=== PATIENT | male | born 1965 | race Caucasian/White ===

== ENCOUNTER 2024-10-24 15:17 | Inpatient (IN) | payer MEDICAID, OTHER, SELFPAY ==
--- NOTE | ~2024-10-24 | CT_ITS ---
EXAMINATION: CT ABDOMEN AND PELVIS WITH CONTRAST CLINICAL INFORMATION: Small bowel obstruction. COMPARISON: None available. TECHNIQUE: Multidetector volumetric images were obtained from the superior aspect of the liver through the pubic symphysis following administration 85 mL of Omnipaque 350 intravenous contrast. Sagittal and coronal reformatted images were obtained on the technologist's workstation. Oral contrast: No This CT examination was performed using dose optimization techniques as appropriate, variously including the following: *Automated exposure control *Adjustment of mA and/or kV according to patient size (this includes techniques or standardized protocols for targeted exams where dose is matched to indication/reason for exam; i.e. extremities or head) *Use of iterative reconstruction technique FINDINGS: LUNG BASES: The lung bases are clear. The heart size is normal. LIVER, GALLBLADDER, AND BILIARY TREE: The liver is normal in size, shape, and attenuation. No focal hepatic lesion or biliary ductal dilatation is present. The gallbladder is unremarkable with no evidence of radiopaque gallstones, gallbladder wall thickening, or obvious pericholecystic inflammatory changes. PANCREAS: Unremarkable. SPLEEN: Unremarkable. ADRENAL GLANDS: Unremarkable. KIDNEYS AND URETERS: The kidneys are normal in size, shape, and attenuation. No hydronephrosis, hydroureter, or calculi seen. No perinephric stranding. BLADDER: Unremarkable. GASTROINTESTINAL TRACT: There are multiple dilated proximal small bowel loops involving jejunum fecal residue on axial image 63/3 consistent with high-grade obstruction. There is abnormal transition from a dilated jejunum to a normal appearing jejunal loop on axial image 58/3 through 60/3 likely adhesions there is overlying abdominal wall mesh from previous hernia repair. Rest of the visualized distal small bowel loops appears unremarkable. There are scattered colonic diverticulosis prominent sigmoid colon but no diverticulitis.. No free air or free fluid seen. ABDOMINAL WALL: Abdominal wall hernia repair with mesh in place LYMPH NODES: Normal. VASCULAR: Unremarkable. PELVIC VISCERA: Prostate gland is moderately enlarged central gland calcification extending into the base of bladder. OSSEOUS STRUCTURES: No aggressive lytic or sclerotic process seen. CT/CT abdomen pelvis w IV con IMPRESSION: Proximal mid jejunal small bowel dynamic obstruction secondary to adhesions there is abrupt transition from fecal filled small bowel loops are normal caliber no. There is overlying abdominal wall mesh and postsurgical changes. No free air or free fluid seen. Moderate to significant prostate enlargement extending to base of bladder. The exam was performed on 10/24/2024 and available for reading on 10/27/2024. In between patient did have surgery for obstruction. Results were discussed with Dr. Brian Mason at 9:50 AM on 10/27/2024 Fleischner guidelines were followed. Electronically signed by: True Sales MD 10/27/2024 09:52 AM EDT RP
--- NOTE | ~2024-10-24 | XR_ITS ---
CLINICAL HISTORY: abdominal pain and distention Single view of the abdomen. COMPARISON: CT abdomen and pelvis dated 10/24/24 at 16:57 EDT FINDINGS: Hernia mesh repair clips overlie the midabdomen. Cutaneous hilary overlie the lower abdomen/pelvis. Air-filled loops of distended small bowel within the midabdomen. No definite air identified within large bowel. Pelvic phleboliths present. Mild spondylosis. No acute fracture. Visualized portions of the lung bases were unremarkable. IMPRESSION: 1. Findings consistent with small-bowel obstruction, similar to prior CT when accounting for differences in technique. This document has been electronically signed by: Damon Wilson MD on 10/26/2024 14:32:48
--- NOTE | ~2024-10-24 | XR_ITS ---
CLINICAL HISTORY: Fever 1 view chest x-ray Comparison: CT abdomen and pelvis 10/24/2024 Findings: Markedly reduced lung volumes that limits overall parenchymal evaluation. No focal consolidation. No large pleural effusion. No pneumothorax. Heart appears enlarged. Acute soft tissue or osseous abnormality. Impression: 1. Markedly hypoventilatory exam. 2. Suspected cardiomegaly without evidence of acute cardiopulmonary abnormality. This document has been electronically signed by: Hattie Mahajan MD on 10/26/2024 02:36:49
--- NOTE | ~2024-10-24 | XR_ITS ---
CLINICAL HISTORY: sob Chest radiograph, 1 view Comparison: CR - XR CHEST 1V - 10/26/24 00:41 EDT Findings: The heart is enlarged. Pulmonary vascularity is unremarkable. The right hemidiaphragm is elevated. No focal consolidation or definite pleural effusion. No pneumothorax. IMPRESSION: No acute cardiopulmonary findings. This document has been electronically signed by: Marvin Rojas DO on 10/26/2024 10:40:59
--- NOTE | ~2024-10-24 | CT_ITS ---
EXAMINATION: CT ABDOMEN AND PELVIS WITH CONTRAST CLINICAL INFORMATION: ?colitis According to the electronic medical records: Status post exploratory laparotomy POD 6, enterolysis for small bowel obstruction. COMPARISON: Radiographs of the abdomen on October 26, 2024. CT of abdomen/pelvis on October 24, 2024. TECHNIQUE: Multidetector volumetric images were obtained from the superior aspect of the liver through the pubic symphysis following administration 85 cc of Omnipaque 350 intravenous contrast. Sagittal and coronal reformatted images were obtained on the technologist's workstation. Oral contrast: No This CT examination was performed using dose optimization techniques as appropriate, variously including the following: *Automated exposure control *Adjustment of mA and/or kV according to patient size (this includes techniques or standardized protocols for targeted exams where dose is matched to indication/reason for exam; i.e. extremities or head) *Use of iterative reconstruction technique FINDINGS: LOWER CHEST: Linear scarring in the right lung base. The small right pleural effusion. LIVER: No focal lesions. GALLBLADDER AND BILIARY TREE: The gallbladder is unremarkable with no evidence of radiopaque gallstones, gallbladder wall thickening, or obvious pericholecystic inflammatory changes. No biliary ductal dilatation. PANCREAS: Unremarkable. SPLEEN: Unremarkable. ADRENAL GLANDS: No nodules. KIDNEYS AND URETERS: No focal renal lesions, renal stones or hydronephrosis. GASTROINTESTINAL TRACT: Stomach is decompressed. There is fatty stranding and trace amount of free fluid surrounding the proximal duodenum (3:42, 6:52). Interval resolution of previously seen proximal small bowel dilatation. Scattered sigmoid colonic diverticula. Mild fatty stranding surrounding the ascending colon (for example 3:53). Unremarkable appearance of the remaining colonic loops with small amount of stool content. PERITONEUM/RETROPERITONEUM: Suggestion of minimal inflammatory changes involving the proximal duodenum and ascending colon, associated with minimal thickening of the adjacent peritoneal fascia. Trace free fluid surrounds the proximal duodenum. No free air. Mesh in the anterior abdominal wall. LYMPH NODES: No lymphadenopathy. VASCULAR: Moderate atherosclerotic disease with calcifications. Mild fusiform dilatation of the distal abdominal aorta measuring up to 2.1 cm in caliber (6:63). PELVIC VISCERA/BLADDER: No focal bladder wall thickening or intravesical stones. Prostatomegaly. OSSEOUS STRUCTURES: No acute findings or destructive bone lesions. CT/CT abdomen pelvis w IV con IMPRESSION: 1. Minimal inflammatory changes involving the proximal duodenum with trace free fluid suggestive of nonspecific duodenitis. 2. Minimal inflammatory changes involving the ascending colon suggestive of nonspecific colitis. Electronically signed by: Darius Bhandari MD 10/31/2024 05:35 PM EDT RP
[2024-10-24 15:26] VITALS: BP 147/98; PULSE 120; O2SAT 94
--- NOTE | 2024-10-24 15:56 | ED.GENADULT ---
HPI - General Adult General Chief complaint: Abdominal Pain Stated complaint: ?bowel obstruction Time Seen by Provider: 10/24/24 15:50 Source: patient and EMS Mode of arrival: EMS Limitations: no limitations History of Present Illness ED Provider: MAYDA Harris HPI narrative: This is a 58-year-old male history of obesity presenting with abdominal pain and distention, nausea and lack of bowel movement for the past 5 days. Patient reports his constipation typically self resolves however this time it is getting worse and he notices that his abdomen is becoming more and more distended as days go on. He is extremely uncomfortable 10/10 pain. Lack of appetite. Denies fevers, chills, chest pain, shortness of breath, headache, vision changes, dizziness and weakness. Related Data Allergies Allergy/AdvReac Type Severity Reaction Status Date / Time aspirin Allergy Itching Verified 10/24/24 16:02 Review of Systems Review of Systems: Yes all other systems are reviewed and are negative PMFSH Past Medical History Attestation statement: The following information was validated with the patient. Source: old records reviewed and nursing notes reviewed Social History Social History Smoked in Last 30 Days: No Use of substances other than those prescribed or required for medical reasons: No Advance Directives: No Advance Directives Information Provided: No Physical Exam ED Exam Exam: Appearance: Alert.? Oriented X3.? No acute distress.? Head: Normocephalic, atraumatic, no step-offs or deformities Eyes: Pupils equal, round and reactive to light.? Neck: Normal inspection.? Neck supple.? CVS: Normal heart rate and rhythm.? Pulses normal.? Respiratory: No respiratory distress.? Breath sounds normal.? Abdomen: Soft and tenderness throughout abdomen there is also noted distention and hypoactive bowel sounds.? Skin: Skin warm and dry.? Normal skin color.? Normal skin turgor.? Extremities: No lower extremity edema.? No calf ttp. 5/5 strength to bilateral upper and lower extremities Back: No midline tenderness, no C-spine tenderness, full range of motion, no CVA tenderness bilaterally Neuro: Oriented X 3.? No motor deficit.? No sensory deficit. CN 2-12 intact Vital Signs: Vital Signs - 24 hr 10/24/24 15:59 10/24/24 16:43 10/24/24 17:07 Temperature 98.2 F 98.8 F Pulse Rate 120 H 118 H Respiratory Rate 22 H 16 23 H Blood Pressure 130/81 136/87 Pulse Oximetry 92 92 Oxygen Delivery Method Room Air Room Air BMI result Body Mass Index 35.6 vss Course Course Course Narrative: Case discussed w/ attendings Dr. Marcum and Dr. Dominguez Reevaluation(s) Reevaluation #1: Bedside ultrasound done which shows dilated loops of bowel concerning for SBO this was done with Dr. Dominguez. Patient appears much more comfortable. Initially I did order a D-dimer on this patient as he is hypoxic and tachycardic however in retrospect I suspect this is secondary to abdominal distention hypoxia seems to get worse when patient is sitting up when he is lying down his O2 sat is normal. D-dimer is elevated at 351 however I do not suspect PE on this patient. I suspect hypoxia due to abdominal distention and tachycardia secondary to significant pain. YEARS Algorithm for Pulmonary Embolism (PE) from [employer] on 10/24/2024 All calculations should be rechecked by clinician prior to use RESULT SUMMARY: PE excluded YEARS algorithm rules out PE (0.43% with symptomatic VTE during 3-month follow-up) INPUTS: patient ?> 0 = No Clinical signs of DVT ?> 0 = No Hemoptysis ?> 0 = No PE most likely diagnosis ?> 0 = No D-dimer >=1,000 ng/mL FEU ?> 0 = No Time: 17:07 Reevaluation #2: Patient reports over the past 5 days he has not been taking his meds. His glucose is high as well as an elevated beta hydroxybutyrate. Likley secondary to poor po intake, dehydration and medication non compliance. He does not have an elevated anion gap or potassium. Low suspicion for DKA Urine does have high specific gravity, glucose and protien. Will give fluids and lispro 5 units Time: 17:13 Reevaluation #3: Discuss this case with the hospitalist they feel like this patient should be admitted to the surgical service. No DKA present. Primary issues SBO. Surgery aware of this and they will admit to their service Time: 17:40 Medications Administered Discontinued Medications Generic Name Dose Route Start Last Admin Trade Name Freq PRN Reason Stop Dose Admin Piperacillin Sod/Tazobactam 50 mls @ 100 mls/hr 10/24/24 16:33 10/24/24 16:43 Sod 3.375 gm/ Sodium Chloride IV 10/24/24 17:02 100 mls/hr ONCE ONE Administration Sodium Chloride 3,285 mls @ 3,285 mls/hr 10/24/24 16:34 10/24/24 16:44 Ns 30 ml/kg infuse over 1 hr (3285 ml) 10/24/24 17:33 3,285 mls/hr IV Administration .Q1H STA Iohexol 100 ml 10/24/24 17:02 10/24/24 17:03 Iohexol 350 Mg/Ml 100 Ml Infus..Btl IV 10/24/24 17:03 85 ml ONCE ONE Administration Morphine Sulfate 4 mg 10/24/24 15:59 10/24/24 16:43 Morphine Sulfate 4 Mg/Ml Cartridge IVPUSH 10/24/24 16:00 4 mg ONCE ONE Administration Protocol Medical Decision Making Medical Decision Making [facility] Narrative: This is a 58-year-old male history of obesity who presents with nausea, abdominal pain and distention as well as constipation x5 days. Physical exam distended abdomen tender to palpation throughout with hypoactive bowel sounds History and physical exam concerning for large or small bowel obstruction. Unlikely acute abdomen, appendicitis, cholecystitis, pancreatitis, diverticulitis or kidney stones. Will rule out metabolic derangements in urinary infection. Unlikely AAA. Plan labs, imaging, urine Differential Diagnosis Differential Diagnoses: The differential diagnosis associated with the presentation includes (History and physical exam concerning for large or small bowel obstruction. Unlikely acute abdomen, appendicitis, cholecystitis, pancreatitis, diverticulitis or kidney stones. Will rule out metabolic derangements in urinary infection. Unlikely AAA.) Admission/Observation Consideration of admission/observation: Escalation of care including admission/observation considered Lab Data [facility] Lab Attestation statement: I reviewed the patient's lab results. 10/24/24 16:28 10/24/24 16:28 Labs: Lab Results 10/24/24 10/24/24 10/24/24 Range/Units 16:05 16:28 16:34 WBC 17.0 H (4.8-10.8) X10*3/uL RBC 6.13 H (4.60-5.80) X10*6/uL Hgb 16.8 (14.0-18.0) g/dl Hct 49.1 (42.0-52.0) % MCV 80.1 (80.0-98.0) fL MCH 27.4 (27.0-33.0) pg MCHC 34.2 (31.0-36.0) g/dl RDW 13.2 (11.0-16.0) % Plt Count 351 (160-400) X10*3/uL MPV 9.6 (9.4-12.4) fL Immature Gran % (Auto) 0.6 H (0.0-0.4) % Neut % (Auto) 77.7 H (45-73) % Lymph % (Auto) 10.0 L (20-40) % Reagan % (Auto) 11.1 H (2-11) % Eos % (Auto) 0.2 (0-4) % Baso % (Auto) 0.4 (0-2) % Lymph # (Auto) 1.7 (1.2-4.9) X10*3/uL Reagan # (Auto) 1.9 H (0.1-1.2) X10*3/uL Eos # (Auto) 0.0 (0.0-0.4) X10*3/uL Baso # (Auto) 0.1 (0.0-0.2) X10*3/uL Abs Immat Gran (auto) 0.10 H (0.00-0.03) X10*3/uL Absolute Neuts (auto) 13.2 H (2.0-8.3) x10*3/uL Absolute Nucleated RBC 0.000 (0.0-0.012) X10*3/uL Nucleated RBC % (auto) 0.0 (0.0-0.2) /100WBC Smear Tech's Comments VERIFIED PT 12.3 (10.9-12.4) SEC INR 1.1 (0.9-1.1) D-Dimer High Sensitivty 351 NG/ML VBG pH 7.45 H (7.32-7.43) VBG pCO2 38 mmHg VBG pO2 68 mmHg VBG HCO3 27 H (22-26) mmol/L VBG O2 Saturation 92.0 % VBG Base Excess 3.3 mmol/L Sodium 130 L (135-145) mmol/L Potassium 3.6 (3.3-5.1) mmol/L Chloride 90 L (96-108) mmol/L Carbon Dioxide 26 (22-29) mmol/L Anion Gap 18 (12-20) BUN 21 H (9-16) mg/dL Creatinine 0.76 (0.5-1.4) mg/dL Estim Creat Clear Calc 126.0 Estimated GFR > 60 POC Glucose 335 H (60-115) mg/dL Random Glucose 332 H (60-115) mg/dL Lactic Acid (0.5-2.0) mmol/L Calcium 8.6 (8.4-10.2) mg/dL Total Bilirubin 0.8 (0.0-1.0) mg/dL AST 13 (5-37) U/L ALT 13 (0-40) U/L Alkaline Phosphatase 97 (39-117) U/L Total Protein 7.4 (6.5-8.0) g/dL Albumin 4.1 (3.5-5.0) g/dL Lipase 10 (8-78) U/L Beta-Hydroxybutyrate 0.65 H (0.02-0.27) mmol/L Urine Color Urine Appearance Urine pH (5.0-9.0) Ur Specific Adrian (1.005-1.025) Urine Protein (Neg-Trace) mg/dL Urine Glucose (UA) (Negative) mg/dL Urine Ketones (Negative) mg/dL Urine Blood (Negative) Urine Nitrite (Negative) Ur Leukocyte Esterase (Negative) Urine RBC (0-2) /HPF Urine WBC (0-5) /HPF Ur Squamous Epith Cells (0-2) /HPF Urine Bacteria (None Seen) Hyaline Casts (0-2) /LPF Granular Casts 10/24/24 10/24/24 Range/Units 16:50 16:53 WBC (4.8-10.8) X10*3/uL RBC (4.60-5.80) X10*6/uL Hgb (14.0-18.0) g/dl Hct (42.0-52.0) % MCV (80.0-98.0) fL MCH (27.0-33.0) pg MCHC (31.0-36.0) g/dl RDW (11.0-16.0) % Plt Count (160-400) X10*3/uL MPV (9.4-12.4) fL Immature Gran % (Auto) (0.0-0.4) % Neut % (Auto) (45-73) % Lymph % (Auto) (20-40) % Reagan % (Auto) (2-11) % Eos % (Auto) (0-4) % Baso % (Auto) (0-2) % Lymph # (Auto) (1.2-4.9) X10*3/uL Reagan # (Auto) (0.1-1.2) X10*3/uL Eos # (Auto) (0.0-0.4) X10*3/uL Baso # (Auto) (0.0-0.2) X10*3/uL Abs Immat Gran (auto) (0.00-0.03) X10*3/uL Absolute Neuts (auto) (2.0-8.3) x10*3/uL Absolute Nucleated RBC (0.0-0.012) X10*3/uL Nucleated RBC % (auto) (0.0-0.2) /100WBC Smear Tech's Comments PT (10.9-12.4) SEC INR (0.9-1.1) D-Dimer High Sensitivty NG/ML VBG pH (7.32-7.43) VBG pCO2 mmHg VBG pO2 mmHg VBG HCO3 (22-26) mmol/L VBG O2 Saturation % VBG Base Excess mmol/L Sodium (135-145) mmol/L Potassium (3.3-5.1) mmol/L Chloride (96-108) mmol/L Carbon Dioxide (22-29) mmol/L Anion Gap (12-20) BUN (9-16) mg/dL Creatinine (0.5-1.4) mg/dL Estim Creat Clear Calc Estimated GFR POC Glucose (60-115) mg/dL Random Glucose (60-115) mg/dL Lactic Acid 1.9 (0.5-2.0) mmol/L Calcium (8.4-10.2) mg/dL Total Bilirubin (0.0-1.0) mg/dL AST (5-37) U/L ALT (0-40) U/L Alkaline Phosphatase (39-117) U/L Total Protein (6.5-8.0) g/dL Albumin (3.5-5.0) g/dL Lipase (8-78) U/L Beta-Hydroxybutyrate (0.02-0.27) mmol/L Urine Color Dark Yellow Urine Appearance Clear Urine pH 5.0 (5.0-9.0) Ur Specific Adrian >= 1.030 H (1.005-1.025) Urine Protein 100 (2+) H (Neg-Trace) mg/dL Urine Glucose (UA) >=1000 H (Negative) mg/dL Urine Ketones 15 (Negative) mg/dL Urine Blood Negative (Negative) Urine Nitrite Negative (Negative) Ur Leukocyte Esterase Negative (Negative) Urine RBC 0-2 (0-2) /HPF Urine WBC 0-5 (0-5) /HPF Ur Squamous Epith Cells 3-5 (0-2) /HPF Urine Bacteria None Seen (None Seen) Hyaline Casts 3-5 (0-2) /LPF Granular Casts Present Independent Interpretation I performed an independent interpretation of an: Plain X-Ray and CT Scan Radiology Impression Discussion of test interpretation with radiology: I have reviewed the radiologist's reading. Prescription Management I considered prescription management with: Pain Medication Chronic Conditions Patient?s care impacted by: Diabetes Critical Care Time Critical Care Time Critical Care Time: Yes Total Critical Care Time: 45 Attestation: I attest to this time spent taking care of the patient, obtaining history, physical, reviewing labs, imaging, treatment of patients condition +/- specialist/hospitalist consult +/- procedure Discharge Plan Discharge Clinical Impression: Small bowel obstruction, Abdominal pain, Acute hyperglycemia, Dehydration, Constipation Patient Disposition: Admitted As Inpatient Print Language: Tamazight
[2024-10-24 15:59] VITALS: BP 130/81; PULSE 120; RESP 22; TEMP 36.8; O2SAT 92; BMI 35.6
[2024-10-24 16:08] LABS: Glucose, Whole Blood 335 mg/dL (60-115)
--- NOTE | 2024-10-24 16:12 | ECG_ITS ---
Test Reason : TACHY Blood Pressure : */* mmHG Vent. Rate : 117 BPM Atrial Rate : 117 BPM P-R Int : 152 ms QRS Dur : 104 ms QT Int : 352 ms P-R-T Axes : 50 -39 43 degrees QTcB Int : 491 ms Sinus tachycardia Left axis deviation Minimal voltage criteria for LVH, may be normal variant ( [place] product ) Abnormal ECG No previous ECGs available Referred By: Ubaldo Harris Electronically Signed By: Chau Morin
[2024-10-24 16:37] LABS: Hematocrit 49.1 % (42.0-52.0); Hemoglobin 16.8 g/dl (14.0-18.0); Imm Gran Abs Auto 0.10 X10*3/uL (0.00-0.03); Imm Gran Pct Auto 0.6 % (0.0-0.4); Lymphocytes Absolute Auto 1.7 X10*3/uL (1.2-4.9); MANUAL DIFF FLAG SCAN; Mean Corpuscular HGB Conc 34.2 g/dl (31.0-36.0); Mean Corpuscular Hemoglobin 27.4 pg (27.0-33.0); Mean Corpuscular Volume 80.1 fL (80.0-98.0); NRBC Abs Auto 0.000 X10*3/uL (0.0-0.012); NRBC Pct Auto 0.0 /100WBC (0.0-0.2); Platelet Count 351 X10*3/uL (160-400); Red Blood Count 6.13 X10*6/uL (4.60-5.80); SCAN SMEAR FLAG 1; Venous Blood Gas Refer to POC result; White Blood Count 17.0 X10*3/uL (4.8-10.8)
[2024-10-24 16:38] LABS: VBG HCO3 27 mmol/L (22-26); VBG O2 % Saturation 92.0 %
[2024-10-24 16:43] VITALS: RESP 16
[2024-10-24] MEDS: SODIUM CHLORIDE 3285 ML IV (16:44)
[2024-10-24 16:47] LABS: INTERNATIONAL NORM RATIO 1.1 (0.9-1.1); Prothrombin Time 12.3 SEC (10.9-12.4)
[2024-10-24 16:49] LABS: D Dimer High Sensitivity 351 NG/ML
[2024-10-24 16:53] LABS: Alanine Aminotransferase 13 U/L (0-40); Albumin Level 4.1 g/dL (3.5-5.0); Alkaline Phosphatase 97 U/L (39-117); Anion Gap 18 (12-20); Aspartate Amino Transferase 13 U/L (5-37); Blood Urea Nitrogen 21 mg/dL (9-16); Calcium 8.6 mg/dL (8.4-10.2); Carbon Dioxide 26 mmol/L (22-29); Chloride 90 mmol/L (96-108); Creatinine Clr Calc Pharmacy 126.0; Estimated Glomerular Filt Rate > 60; Lipase 10 U/L (8-78); Potassium 3.6 mmol/L (3.3-5.1); Sodium 130 mmol/L (135-145); Total Protein 7.4 g/dL (6.5-8.0)
[2024-10-24 17:01] LABS: Appearance Urine Clear; Glucose Urine UA >=1000 mg/dL (Negative); PH 5.0 (5.0-9.0); Specific Gravity - Urine >= 1.030 (1.005-1.025); UMIC TRIGGER UACC YES
[2024-10-24] MEDS: iohexoL 350 MG/ML 100 ML INFUS..BTL IV (17:03)
[2024-10-24 17:07] VITALS: BP 136/87; PULSE 118; RESP 23; TEMP 37.1; O2SAT 92
--- NOTE | 2024-10-24 17:45 | P.HPGS_ITS ---
History of Present Illness History of Present Illness Date of Service: 10/24/24 Chief complaint: SBO Narrative: Josue Donaldson is a 58 year old male presenting with complaints of 5 days of diffuse abdominal pain with nausea and constipation. He has a prior history of an exploratory laparotomy performed in 1984 in [place] which ended up being a perforated appendicitis. He subsequently underwent an incisional hernia repair with mesh performed at [facility] approximately 10 years ago. He has had several bowel obstructions since this time all of which have resolved without the need for surgery. He reports having previous nasal surgery which makes nasogastric tube insertion in possible. He presented to the emergency department and was found to have abdominal distention with tenderness throughout the abdomen. He underwent IV hydration and CT abdomen and pelvis was performed which shows dilated loops of small bowel with a transition in the distal small bowel possibly related to the previous hernia surgery. No abscess or free air is identified. He is admitted to the surgical service for further management of the small-bowel obstruction. Review of Systems 2 Review of Systems: Yes all other systems are reviewed and are negative PMFSH Social History Social History Smoked in Last 30 Days: No Use of substances other than those prescribed or required for medical reasons: No Advance Directives: No Advance Directives Information Provided: No Meds Allergies Allergy/AdvReac Type Severity Reaction Status Date / Time aspirin Allergy Itching Verified 10/24/24 16:02 Physical Exam 2 Vital Signs: Vital Signs: Last Vital Signs Temp 98.8 F 10/24/24 17:07 Pulse 118 H 10/24/24 17:07 Resp 23 H 10/24/24 17:07 BP 136/87 10/24/24 17:07 Pulse Ox 92 10/24/24 17:07 O2 Del Method Room Air 10/24/24 17:07 BMI result Body Mass Index 35.6 Const: General: cooperative and no acute distress Nutritional Appearance: w ell nourished Orientation/consciousness: patient oriented x3 Limitations: no limitations HEENT: Head: Yes normocephalic and Yes atraumatic Ears: hearing grossly normal bilaterally Resp: Effort & Inspection: normal respiratory effort, no audible wheezes, no cough and no respiratory distress Cardio: Jugular venous distension: no JVD GI: Other: Large midline incision with no palpable hernia. Mild tenderness to deep palpation, tympany to percussion, no rebound, guarding or rigidity. Inspection: Yes normal to inspection Abdomen image: 1. Midline incision Skin: Other: Warm, dry, no rash Neuro: General: patient oriented x3 Extrem: General: Yes no clubbing, cyanosis or edema Results Results Labs: Short CBC 10/24/24 Range/Units 16:28 WBC 17.0 H (4.8-10.8) X10*3/uL Hgb 16.8 (14.0-18.0) g/dl Hct 49.1 (42.0-52.0) % Plt Count 351 (160-400) X10*3/uL BMP 10/24/24 16:28 Sodium 130 L Potassium 3.6 Chloride 90 L Carbon Dioxide 26 BUN 21 H Creatinine 0.76 Calcium 8.6 Liver Function 10/24/24 Range/Units 16:28 Total Bilirubin 0.8 (0.0-1.0) mg/dL AST 13 (5-37) U/L ALT 13 (0-40) U/L Alkaline Phosphatase 97 (39-117) U/L Albumin 4.1 (3.5-5.0) g/dL Urine 10/24/24 Range/Units 16:53 Urine Color Dark Yellow Urine Appearance Clear Urine pH 5.0 (5.0-9.0) Ur Specific Nahma >= 1.030 H (1.005-1.025) Urine Protein 100 (2+) H (Neg-Trace) mg/dL Urine Glucose (UA) >=1000 H (Negative) mg/dL Assessment and Plan (1) Small bowel obstruction: Status: Acute Plan 58-year-old male patient presenting with complaints of abdominal pain and distention found on workup to have a small-bowel obstruction. He has had previous bowel obstructions which resolved nonoperatively. I recommended admission to the surgical service for IV hydration and bowel rest. If his symptoms do not improve over the next 24 hours, exploratory laparotomy may be necessary. The patient understands and agrees with the plan. Unfortunately and nasogastric tube can not be inserted given his previous nasal surgery. Quality Stroke Does the patient have a stroke diagnosis?: No VTE Prior VTE?: No VTE Risk Level:: Surgical - moderate VTE Device Contraindication: N/A - Device Ordered VTE Drug Contraindication: Treatment Not Indicated Procedures Date of Service Date of Service: 10/24/24
--- NOTE | 2024-10-24 17:57 | PHA.MEDREC ---
Addendum entered by Raysa Parekh RPh 10/24/24 18:03: Reviewed by [facility] Original Note: Pharmacy Consult ? Medication Reconciliation Pharmacy has completed the medication reconciliation. Patient states he is not taking any medications.
[2024-10-24 18:56] VITALS: BP 154/75; PULSE 112; RESP 20; TEMP 36.7; O2SAT 94
[2024-10-24 19:02] VITALS: BMI 35.0
[2024-10-24 19:28] VITALS: BP 142/60; PULSE 100; RESP 18; TEMP 36.9; O2SAT 93
[2024-10-24 19:37] LABS: Glucose, Whole Blood 227 mg/dL (60-115)
[2024-10-24] MEDS: Lactated Ringers 1,000 ML 125 ML IVCONT (20:22)
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
[2024-10-24] MEDS: diazePAM 10 MG/2 ML CARTRIDGE 5 MG IVPUSH (23:04)
[2024-10-24] MEDS: 0.9 % Sodium Chloride Flush 3 ML SYRINGE IVFLUSH (23:06)
[2024-10-24 23:41] LABS: Glucose, Whole Blood 238 mg/dL (60-115)
[2024-10-25] VITALS (17 sets, daily range): BP systolic 105–171; BP diastolic 58–97; PULSE 97–123; RESP 14–20; TEMP 36–36.8; O2SAT 92–99
[2024-10-25 00:22] LABS: Cannabinoid Screen Urine Not Detected (Not Detect)
[2024-10-25] MEDS: diazePAM 10 MG/2 ML CARTRIDGE 5 MG IVPUSH ×3 (00:44→23:34)
[2024-10-25 01:01] LABS: Glucose, Whole Blood 225 mg/dL (60-115)
[2024-10-25] MEDS: Lactated Ringers 1,000 ML 125 ML IVCONT ×2 (05:35→17:51)
--- NOTE | 2024-10-25 06:00 | PC.NURSE ---
0600: Patients COW scale came out to 12, Vitals: 133/80, HR: 110, O2:91 on RA, place don 2L for comfort. Temp: 98.6, POC: 230. Patient visibly restless, and irritable, visible beads of sweat on forehead. MID TEACHER Ale, Andre made aware.
[2024-10-25 06:26] LABS: Glucose, Whole Blood 230 mg/dL (60-115)
[2024-10-25 06:39] LABS: MANUAL DIFF FLAG NO
--- NOTE | 2024-10-25 07:12 | PC.NURSE ---
At Approximately 1999 patient admitted to floor from ED, Upon initial assessment- Pt complaining of cramping abdominal pain, denies N/V. DAVIDE Powell notified- PRN Toradol ordered and administered per APR with some effect. Pt initially refusing to exchange teller into val. On admission patient denied any substance or alcohol use. 2129: Patients nephew mentioned to this RN, that his uncle tends to pop pills but won't tell anyone. This RN asked patient again, he then admitted to using unprescribed percocet, and handed over unmarked pill bottle. Security was called to check all belongings and person, camera in room for safety precautions. Narcotics secured and sent to pharmacy, by RN research dairy farm supervisor Luma. 2299: COW Scale and PRN valium order placed by DAVIDE Powell, for opiate withdrawals. Tele monitor applied per order. Sinus tachycardic, HR 100-120's at rest and increases to the 130's with ambulation. Patient denies any chest pain or SOB.
[2024-10-25 07:16] LABS: Glucose, Whole Blood 238 mg/dL (60-115)
--- NOTE | 2024-10-25 07:22 | PM.PNGS ---
Subjective Subjective Date of Service: 10/25/24 Interval history: Patient continues to have severe abdominal pain throughout the abdomen unimproved overnight. Physical Exam Vital Signs: Vital Signs: Last Vital Signs Temp 97.1 F 10/25/24 03:16 Pulse 115 H 10/25/24 03:16 Resp 18 10/25/24 03:16 BP 146/79 H 10/25/24 03:16 Pulse Ox 93 10/25/24 03:16 O2 Del Method Room Air 10/25/24 03:16 BMI result Body Mass Index 35.0 Const: General: in distress Nutritional Appearance: well nourished Orientation/consciousness: patient oriented x3 Limitations: no limitations Resp: Effort & Inspection: normal respiratory effort GI: Inspection: Yes normal to inspection Palpation (GI): Firmness to palpation present (GI), Tenderness to palpation present (GI) in the RUQ and Ramirez's sign positive, no guarding, not rigid and No hepatosplenomegaly present Percussion: Yes tympanic to percussion Auscultation: Absent bowel sounds Rectal Exam - Male: Yes deferred Neuro: General: patient oriented x3 Extrem: General: No edema Objective Data Active Medications Calcium Carbonate (Calcium Carbonate 750 Mg Tab.Chew) 750 mg PO Q4H PRN PRN Reason: Heartburn Dextrose (Dextrose 50 % 25 Gm/50 Ml Syringe) 25 gm IVPUSH Q15M PRN; Protocol PRN Reason: per Hypoglycemia Standing Ord. Diazepam (Diazepam 10 Mg/2 Ml Cartridge) 5 mg IVPUSH Q4H PRN PRN Reason: Opiate Withdrawal Glucose (Glucose Gel 15 Gm Gel..Gram.) 15 gm PO Q15M PRN; Protocol PRN Reason: per Hypoglycemia Standing Ord. Acetaminophen (Ofirmev) 1,000 mg in 100 mls @ 400 mls/hr IV Q6H PRN PRN Reason: Pain, Mild (Pain Scale 1-3) Last Infusion: 10/25/24 03:42 Dose: Infused Documented By: CARLEE Lactated Ringer's (Lr) 1,000 mls @ 125 mls/hr IVCONT .Q8H [facility] Last Admin: 10/25/24 05:35 Dose: 125 mls/hr Documented By: CM Piperacillin Sod/Tazobactam (Sod 3.375 gm/ Sodium Chloride) 50 mls @ 100 mls/hr IV Q6H COUNT INCLUDES THE [facility] Last Infusion: 10/25/24 06:05 Dose: Infused Documented By: CARLEE Insulin Human Lispro (Insulin Lispro 100 Unit/Ml 3 Ml Vial) 0 unit SUBCUT Q6H COUNT INCLUDES THE [facility]; Protocol Last Admin: 10/25/24 06:34 Dose: 4 unit Documented By: CARLEE Ketorolac Tromethamine (Ketorolac Tromethamine 30 Mg/Ml Vial) 30 mg IVPUSH Q6H PRN PRN Reason: Pain, Severe (Pain Scale 7-10) Last Admin: 10/25/24 02:32 Dose: 30 mg Documented By: CARLEE Melatonin (Melatonin 3 Mg Tablet) 6 mg PO BEDTIME PRN PRN Reason: Insomnia Ondansetron HCl (Ondansetron Hcl 4 Mg/2 Ml Vial) 4 mg IVPUSH QID PRN PRN Reason: Nausea Sodium Chloride (0.9 % Sodium Chloride Flush 3 Ml Syringe) 3 ml IVFLUSH QSHIFT COUNT INCLUDES THE [facility] Last Admin: 10/24/24 23:06 Dose: 3 ml Documented By: CARLEE Labs 10/24/24 16:28 10/24/24 16:28 Labs: Laboratory Results - last 24 hr 10/24/24 10/24/24 10/24/24 16:05 16:28 16:34 MCV 80.1 MCH 27.4 MCHC 34.2 RDW 13.2 Plt Count 351 MPV 9.6 Immature Gran % (Auto) 0.6 H Neut % (Auto) 77.7 H Lymph % (Auto) 10.0 L [place] % (Auto) 11.1 H Eos % (Auto) 0.2 Baso % (Auto) 0.4 Lymph # (Auto) 1.7 [place] # (Auto) 1.9 H Eos # (Auto) 0.0 Baso # (Auto) 0.1 Abs Immat Gran (auto) 0.10 H Absolute Neuts (auto) 13.2 H Absolute Nucleated RBC 0.000 Nucleated RBC % (auto) 0.0 Smear Tech's Comments VERIFIED PT 12.3 INR 1.1 D-Dimer High Sensitivty 351 VBG pH 7.45 H VBG pCO2 38 VBG pO2 68 VBG HCO3 27 H VBG O2 Saturation 92.0 VBG Base Excess 3.3 Anion Gap 18 Estim Creat Clear Calc 126.0 Estimated GFR > 60 POC Glucose 335 H Random Glucose 332 H Lactic Acid Calcium 8.6 Total Bilirubin 0.8 AST 13 ALT 13 Alkaline Phosphatase 97 Total Protein 7.4 Albumin 4.1 Lipase 10 Beta-Hydroxybutyrate 0.65 H Urine Color Urine Appearance Urine pH Ur Specific [place] Urine Protein Urine Glucose (UA) Urine Ketones Urine Blood Urine Nitrite Ur Leukocyte Esterase Urine RBC Urine WBC Ur Squamous Epith Cells Urine Bacteria Hyaline Casts Granular Casts Urine Opiates Screen Ur Buprenorphine Scrn Ur Oxycodone Screen Urine Methadone Screen Urine Fentanyl Screen Ur Barbiturates Screen Ur Phencyclidine Scrn Ur Amphetamines Screen U Benzodiazepines Scrn Urine Cocaine Screen U Marijuana (THC) Screen 10/24/24 10/24/24 10/24/24 16:50 16:53 19:27 MCV MCH MCHC RDW Plt Count MPV Immature Gran % (Auto) Neut % (Auto) Lymph % (Auto) [place] % (Auto) Eos % (Auto) Baso % (Auto) Lymph # (Auto) [place] # (Auto) Eos # (Auto) Baso # (Auto) Abs Immat Gran (auto) Absolute Neuts (auto) Absolute Nucleated RBC Nucleated RBC % (auto) Smear Tech's Comments PT INR D-Dimer High Sensitivty VBG pH VBG pCO2 VBG pO2 VBG HCO3 VBG O2 Saturation VBG Base Excess Anion Gap Estim Creat Clear Calc Estimated GFR POC Glucose 227 H Random Glucose Lactic Acid 1.9 Calcium Total Bilirubin AST ALT Alkaline Phosphatase Total Protein Albumin Lipase Beta-Hydroxybutyrate Urine Color Dark Yellow Urine Appearance Clear Urine pH 5.0 Ur Specific [place] >= 1.030 H Urine Protein 100 (2+) H Urine Glucose (UA) >=1000 H Urine Ketones 15 Urine Blood Negative Urine Nitrite Negative Ur Leukocyte Esterase Negative Urine RBC 0-2 Urine WBC 0-5 Ur Squamous Epith Cells 3-5 Urine Bacteria None Seen Hyaline Casts 3-5 Granular Casts Present Urine Opiates Screen Ur Buprenorphine Scrn Ur Oxycodone Screen Urine Methadone Screen Urine Fentanyl Screen Ur Barbiturates Screen Ur Phencyclidine Scrn Ur Amphetamines Screen U Benzodiazepines Scrn Urine Cocaine Screen U Marijuana (THC) Screen 10/24/24 10/24/24 10/25/24 23:37 23:59 00:56 MCV MCH MCHC RDW Plt Count MPV Immature Gran % (Auto) Neut % (Auto) Lymph % (Auto) [place] % (Auto) Eos % (Auto) Baso % (Auto) Lymph # (Auto) [place] # (Auto) Eos # (Auto) Baso # (Auto) Abs Immat Gran (auto) Absolute Neuts (auto) Absolute Nucleated RBC Nucleated RBC % (auto) Smear Tech's Comments PT INR D-Dimer High Sensitivty VBG pH VBG pCO2 VBG pO2 VBG HCO3 VBG O2 Saturation VBG Base Excess Anion Gap Estim Creat Clear Calc Estimated GFR POC Glucose 238 H 225 H Random Glucose Lactic Acid Calcium Total Bilirubin AST ALT Alkaline Phosphatase Total Protein Albumin Lipase Beta-Hydroxybutyrate Urine Color Urine Appearance Urine pH Ur Specific [place] Urine Protein Urine Glucose (UA) Urine Ketones Urine Blood Urine Nitrite Ur Leukocyte Esterase Urine RBC Urine WBC Ur Squamous Epith Cells Urine Bacteria Hyaline Casts Granular Casts Urine Opiates Screen POSITIVE H Ur Buprenorphine Scrn Not Detected Ur Oxycodone Screen Positive H Urine Methadone Screen Not Detected Urine Fentanyl Screen Not Detected Ur Barbiturates Screen Not Detected Ur Phencyclidine Scrn Not Detected Ur Amphetamines Screen Not Detected U Benzodiazepines Scrn Not Detected Urine Cocaine Screen Not Detected U Marijuana (THC) Screen Not Detected 10/25/24 10/25/24 06:20 07:09 MCV MCH MCHC RDW Plt Count MPV Immature Gran % (Auto) Neut % (Auto) Lymph % (Auto) [place] % (Auto) Eos % (Auto) Baso % (Auto) Lymph # (Auto) [place] # (Auto) Eos # (Auto) Baso # (Auto) Abs Immat Gran (auto) Absolute Neuts (auto) Absolute Nucleated RBC Nucleated RBC % (auto) Smear Tech's Comments PT INR D-Dimer High Sensitivty VBG pH VBG pCO2 VBG pO2 VBG HCO3 VBG O2 Saturation VBG Base Excess Anion Gap Estim Creat Clear Calc Estimated GFR POC Glucose 230 H 238 H Random Glucose Lactic Acid Calcium Total Bilirubin AST ALT Alkaline Phosphatase Total Protein Albumin Lipase Beta-Hydroxybutyrate Urine Color Urine Appearance Urine pH Ur Specific [place] Urine Protein Urine Glucose (UA) Urine Ketones Urine Blood Urine Nitrite Ur Leukocyte Esterase Urine RBC Urine WBC Ur Squamous Epith Cells Urine Bacteria Hyaline Casts Granular Casts Urine Opiates Screen Ur Buprenorphine Scrn Ur Oxycodone Screen Urine Methadone Screen Urine Fentanyl Screen Ur Barbiturates Screen Ur Phencyclidine Scrn Ur Amphetamines Screen U Benzodiazepines Scrn Urine Cocaine Screen U Marijuana (THC) Screen Procedures Date of Service Date of Service: 10/25/24 Progress Note: A&P Assessment and plan (1) Small bowel obstruction: Status: Acute Plan 58-year-old male patient presenting with persistent abdominal distention and abdominal pain, not improved with bowel rest and IV hydration. NG tube decompression not available due to previous nasal surgery. Recommended exploratory laparotomy and lysis of adhesions given the severity of his abdominal pain. After discussion of the procedure, risks, and alternatives, he consents to the exploratory laparotomy, lysis of adhesions. He has been added onto the operative schedule for today. Time Spent With Patient Time: Total time managing care of this patient today ____ minutes. Quality Stroke Does the patient have a stroke diagnosis?: No VTE Prior VTE?: No VTE Risk Level:: Surgical - moderate VTE Device Contraindication: N/A - Device Ordered VTE Drug Contraindication: Treatment Not Indicated
[2024-10-25 07:28] LABS: Hematocrit 47.3 % (42.0-52.0); Hemoglobin 15.4 g/dl (14.0-18.0); Imm Gran Abs Auto 0.08 X10*3/uL (0.00-0.03); Imm Gran Pct Auto 0.7 % (0.0-0.4); Lymphocytes Absolute Auto 1.5 X10*3/uL (1.2-4.9); Mean Corpuscular HGB Conc 32.6 g/dl (31.0-36.0); Mean Corpuscular Hemoglobin 26.8 pg (27.0-33.0); Mean Corpuscular Volume 82.4 fL (80.0-98.0); NRBC Abs Auto 0.000 X10*3/uL (0.0-0.012); NRBC Pct Auto 0.0 /100WBC (0.0-0.2); Platelet Count 341 X10*3/uL (160-400); Red Blood Count 5.74 X10*6/uL (4.60-5.80); White Blood Count 12.3 X10*3/uL (4.8-10.8)
[2024-10-25 07:40] LABS: Anion Gap 16 (12-20); Blood Urea Nitrogen 21 mg/dL (9-16); Calcium 8.0 mg/dL (8.4-10.2); Carbon Dioxide 23 mmol/L (22-29); Chloride 98 mmol/L (96-108); Creatinine Clr Calc Pharmacy 123.2; Estimated Glomerular Filt Rate > 60; Potassium 3.3 mmol/L (3.3-5.1); Sodium 134 mmol/L (135-145)
--- NOTE | 2024-10-25 08:00 | ECG_ITS ---
Test Reason : tachycardia Blood Pressure : */* mmHG Vent. Rate : 115 BPM Atrial Rate : 115 BPM P-R Int : 152 ms QRS Dur : 104 ms QT Int : 362 ms P-R-T Axes : 53 -26 63 degrees QTcB Int : 500 ms Sinus tachycardia Otherwise normal ECG When compared with ECG of 24-Oct-2024 16:14, No significant change was found Referred By: Ale Powell Electronically Signed By: Chau Morin
--- NOTE | 2024-10-25 08:18 | P.PNIM_ITS ---
Subjective Subjective Date of Service: 10/25/24 Interval History: seen and examined this morning follow up for medical consultation appears uncomfortable Physical Exam 2 Vital Signs: Vital Signs: Last Vital Signs Temp 97.5 F 10/25/24 07:47 Pulse 115 H 10/25/24 07:47 Resp 18 10/25/24 07:47 BP 111/65 10/25/24 07:47 Pulse Ox 93 10/25/24 07:47 O2 Del Method Nasal Cannula 10/25/24 07:47 O2 Flow Rate 2 10/25/24 07:47 BMI result Body Mass Index 35.0 Const: Other: appears uncomfortable General: alert and awake Nutritional Appearance: average body habitus Orientation/consciousness: patient oriented x3 Resp: Effort & Inspection: normal respiratory effort, able to speak in complete sentences, no respiratory distress and no use of accessory muscles A uscultation: clear to auscultation bilaterally Cardio: Rate: regular rate GI: Inspection: Yes distended Palpation (GI): Tenderness to palpation present (GI) Neuro: General: patient oriented x3, moves all extremities and CN's II-XI intact bilaterally Objective Data Active Medications Calcium Carbonate (Calcium Carbonate 750 Mg Tab.Chew) 750 mg PO Q4H PRN PRN Reason: Heartburn Dextrose (Dextrose 50 % 25 Gm/50 Ml Syringe) 25 gm IVPUSH Q15M PRN; Protocol PRN Reason: per Hypoglycemia Standing Ord. Diazepam (Diazepam 10 Mg/2 Ml Cartridge) 5 mg IVPUSH Q4H PRN PRN Reason: Opiate Withdrawal Glucose (Glucose Gel 15 Gm Gel..Gram.) 15 gm PO Q15M PRN; Protocol PRN Reason: per Hypoglycemia Standing Ord. Acetaminophen (Ofirmev) 1,000 mg in 100 mls @ 400 mls/hr IV Q6H PRN PRN Reason: Pain, Mild (Pain Scale 1-3) Last Infusion: 10/25/24 03:42 Dose: Infused Documented By: CARLEE Lactated Ringer's (Lr) 1,000 mls @ 125 mls/hr IVCONT .Q8H [facility] Last Admin: 10/25/24 05:35 Dose: 125 mls/hr Documented By: CM Piperacillin Sod/Tazobactam (Sod 3.375 gm/ Sodium Chloride) 50 mls @ 100 mls/hr IV Q6H [facility] Last Infusion: 10/25/24 06:05 Dose: Infused Documented By: CARLEE Potassium Chloride (Potassium Chloride/H20) 10 meq in 100 mls @ 100 mls/hr IV Q1H [facility] Stop: 10/25/24 10:29 Insulin Human Lispro (Insulin Lispro 100 Unit/Ml 3 Ml Vial) 0 unit SUBCUT Q6H [facility]; Protocol Last Admin: 10/25/24 06:34 Dose: 4 unit Documented By: CARLEE Melatonin (Melatonin 3 Mg Tablet) 6 mg PO BEDTIME PRN PRN Reason: Insomnia Ondansetron HCl (Ondansetron Hcl 4 Mg/2 Ml Vial) 4 mg IVPUSH QID PRN PRN Reason: Nausea Sodium Chloride (0.9 % Sodium Chloride Flush 3 Ml Syringe) 3 ml IVFLUSH QSHIFT [facility] Last Admin: 10/25/24 07:45 Dose: Not Given Documented By: ELISHA Non-Admin Reason: IV Running Labs 10/25/24 06:07 10/25/24 06:07 Labs: Laboratory Results - last 24 hr 10/24/24 10/24/24 10/24/24 16:05 16:28 16:34 MCV 80.1 MCH 27.4 MCHC 34.2 RDW 13.2 Plt Count 351 MPV 9.6 Immature Gran % (Auto) 0.6 H Neut % (Auto) 77.7 H Lymph % (Auto) 10.0 L [place] % (Auto) 11.1 H Eos % (Auto) 0.2 Baso % (Auto) 0.4 Lymph # (Auto) 1.7 [place] # (Auto) 1.9 H Eos # (Auto) 0.0 Baso # (Auto) 0.1 Abs Immat Gran (auto) 0.10 H Absolute Neuts (auto) 13.2 H Absolute Nucleated RBC 0.000 Nucleated RBC % (auto) 0.0 Smear Tech's Comments VERIFIED PT 12.3 INR 1.1 D-Dimer High Sensitivty 351 VBG pH 7.45 H VBG pCO2 38 VBG pO2 68 VBG HCO3 27 H VBG O2 Saturation 92.0 VBG Base Excess 3.3 Anion Gap 18 Estim Creat Clear Calc 126.0 Estimated GFR > 60 POC Glucose 335 H Random Glucose 332 H Lactic Acid Calcium 8.6 Total Bilirubin 0.8 AST 13 ALT 13 Alkaline Phosphatase 97 Total Protein 7.4 Albumin 4.1 Lipase 10 Beta-Hydroxybutyrate 0.65 H Urine Color Urine Appearance Urine pH Ur Specific [place] Urine Protein Urine Glucose (UA) Urine Ketones Urine Blood Urine Nitrite Ur Leukocyte Esterase Urine RBC Urine WBC Ur Squamous Epith Cells Urine Bacteria Hyaline Casts Granular Casts Urine Opiates Screen Ur Buprenorphine Scrn Ur Oxycodone Screen Urine Methadone Screen Urine Fentanyl Screen Ur Barbiturates Screen Ur Phencyclidine Scrn Ur Amphetamines Screen U Benzodiazepines Scrn Urine Cocaine Screen U Marijuana (THC) Screen 10/24/24 10/24/24 10/24/24 16:50 16:53 19:27 MCV MCH MCHC RDW Plt Count MPV Immature Gran % (Auto) Neut % (Auto) Lymph % (Auto) [place] % (Auto) Eos % (Auto) Baso % (Auto) Lymph # (Auto) [place] # (Auto) Eos # (Auto) Baso # (Auto) Abs Immat Gran (auto) Absolute Neuts (auto) Absolute Nucleated RBC Nucleated RBC % (auto) Smear Tech's Comments PT INR D-Dimer High Sensitivty VBG pH VBG pCO2 VBG pO2 VBG HCO3 VBG O2 Saturation VBG Base Excess Anion Gap Estim Creat Clear Calc Estimated GFR POC Glucose 227 H Random Glucose Lactic Acid 1.9 Calcium Total Bilirubin AST ALT Alkaline Phosphatase Total Protein Albumin Lipase Beta-Hydroxybutyrate Urine Color Dark Yellow Urine Appearance Clear Urine pH 5.0 Ur Specific [place] >= 1.030 H Urine Protein 100 (2+) H Urine Glucose (UA) >=1000 H Urine Ketones 15 Urine Blood Negative Urine Nitrite Negative Ur Leukocyte Esterase Negative Urine RBC 0-2 Urine WBC 0-5 Ur Squamous Epith Cells 3-5 Urine Bacteria None Seen Hyaline Casts 3-5 Granular Casts Present Urine Opiates Screen Ur Buprenorphine Scrn Ur Oxycodone Screen Urine Methadone Screen Urine Fentanyl Screen Ur Barbiturates Screen Ur Phencyclidine Scrn Ur Amphetamines Screen U Benzodiazepines Scrn Urine Cocaine Screen U Marijuana (THC) Screen 10/24/24 10/24/24 10/25/24 23:37 23:59 00:56 MCV MCH MCHC RDW Plt Count MPV Immature Gran % (Auto) Neut % (Auto) Lymph % (Auto) [place] % (Auto) Eos % (Auto) Baso % (Auto) Lymph # (Auto) [place] # (Auto) Eos # (Auto) Baso # (Auto) Abs Immat Gran (auto) Absolute Neuts (auto) Absolute Nucleated RBC Nucleated RBC % (auto) Smear Tech's Comments PT INR D-Dimer High Sensitivty VBG pH VBG pCO2 VBG pO2 VBG HCO3 VBG O2 Saturation VBG Base Excess Anion Gap Estim Creat Clear Calc Estimated GFR POC Glucose 238 H 225 H Random Glucose Lactic Acid Calcium Total Bilirubin AST ALT Alkaline Phosphatase Total Protein Albumin Lipase Beta-Hydroxybutyrate Urine Color Urine Appearance Urine pH Ur Specific [place] Urine Protein Urine Glucose (UA) Urine Ketones Urine Blood Urine Nitrite Ur Leukocyte Esterase Urine RBC Urine WBC Ur Squamous Epith Cells Urine Bacteria Hyaline Casts Granular Casts Urine Opiates Screen POSITIVE H Ur Buprenorphine Scrn Not Detected Ur Oxycodone Screen Positive H Urine Methadone Screen Not Detected Urine Fentanyl Screen Not Detected Ur Barbiturates Screen Not Detected Ur Phencyclidine Scrn Not Detected Ur Amphetamines Screen Not Detected U Benzodiazepines Scrn Not Detected Urine Cocaine Screen Not Detected U Marijuana (THC) Screen Not Detected 10/25/24 10/25/24 10/25/24 06:07 06:20 07:09 MCV 82.4 MCH 26.8 L MCHC 32.6 RDW 13.3 Plt Count 341 MPV 10.1 Immature Gran % (Auto) 0.7 H Neut % (Auto) 74.4 H Lymph % (Auto) 12.3 L [place] % (Auto) 11.2 H Eos % (Auto) 0.5 Baso % (Auto) 0.9 Lymph # (Auto) 1.5 [place] # (Auto) 1.4 H Eos # (Auto) 0.1 Baso # (Auto) 0.1 Abs Immat Gran (auto) 0.08 H Absolute Neuts (auto) 9.1 H Absolute Nucleated RBC 0.000 Nucleated RBC % (auto) 0.0 Smear Tech's Comments PT INR D-Dimer High Sensitivty VBG pH VBG pCO2 VBG pO2 VBG HCO3 VBG O2 Saturation VBG Base Excess Anion Gap 16 Estim Creat Clear Calc 123.2 Estimated GFR > 60 POC Glucose 230 H 238 H Random Glucose 232 H Lactic Acid Calcium 8.0 L D Total Bilirubin AST ALT Alkaline Phosphatase Total Protein Albumin Lipase Beta-Hydroxybutyrate Urine Color Urine Appearance Urine pH Ur Specific [place] Urine Protein Urine Glucose (UA) Urine Ketones Urine Blood Urine Nitrite Ur Leukocyte Esterase Urine RBC Urine WBC Ur Squamous Epith Cells Urine Bacteria Hyaline Casts Granular Casts Urine Opiates Screen Ur Buprenorphine Scrn Ur Oxycodone Screen Urine Methadone Screen Urine Fentanyl Screen Ur Barbiturates Screen Ur Phencyclidine Scrn Ur Amphetamines Screen U Benzodiazepines Scrn Urine Cocaine Screen U Marijuana (THC) Screen Assessment and Plan (1) Opiate dependence: Status: Acute (2) Small bowel obstruction: Status: Acute Plan This is a 58 year old male with reported history of DM, BPH, chronic back pain who presents with abdominal pain found to have SBO SBO currently NPO Patient can not have NG tube due to previous nasal surgery not improving with conservative measures, plan for ex lap in OR today denies h/o cardiopulmonary disease. no previous issues with anesthesia. QTc borderline, magnesium 2.2, k 3.3, will replace K to goal of near 4 does appear to have some component of opiate withdrawal but difficult to say given extent of abdominal pain, this would not prevent the patient from having surgery no further work up recommended prior to planned procedure. NIDDM NPO follow POCs, cover with SSI no meds on claim history or med rec AIC pending HTN Secondary to pain likely, pt not normally on antihypertensives follow BP Opioid use disorder uses oxycodone purchased without prescription 5mg 4x daily per pt report Toxicology screen positive for oxycodone prn valium IV morphine for pain control follow [facility]OWS addiction med consult Thank you for allowing us to participate in the care of this patient, we will follow along with you. Quality Stroke Does the patient have a stroke diagnosis?: No VTE Prior VTE?: No VTE Risk Level:: Surgical - moderate VTE Device Contraindication: N/A - Device Ordered VTE Drug Contraindication: Treatment Not Indicated
[2024-10-25 08:32] LABS: Magnesium 2.2 mg/dL (1.6-2.6)
[2024-10-25] MEDS: Potassium Chloride/H20 10 MEQ/100 ML PIGGYBACK 100 MEQ IV ×2 (08:37→11:12)
[2024-10-25 09:34] LABS: Hemoglobin A1C 323.5006 umol/L; Total Hemoglobin (HGBA1C) 4001.7437 umol/L
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
[2024-10-25 12:07] LABS: Glucose, Whole Blood 256 mg/dL (60-115)
--- NOTE | 2024-10-25 13:05 | MHC.CM.PN ---
PT REPORTS HE LIVES ALONE AND IS INDEPENDENT WITH CARE HE HAS NO DME AND NO SERVICES DECLINES A HCP PCP AT [facility] DCP: HOME VIA PRIVATE TRANSPORT
--- NOTE | 2024-10-25 14:48 | P.OP_ITS ---
Operative Note Operative Note Date of Service: 10/25/24 Narrative: Preoperative diagnosis: Small bowel obstruction due to adhesions Postoperative diagnosis: Same Procedure: Exploratory laparotomy, lysis of adhesions Surgeon: Brian Baker MD Lead Simulation Modeling Engineer: None Anesthesia: General endotracheal Indications for procedure: 58-year-old male patient with a prior history of exploratory laparotomy through a large midline incision later status post repair of an incisional hernia with mesh presenting now with a recurrent small bowel obstruction. The patient was reporting severe pain in his unable to undergo NG tube decompression due to prior nasal surgery. He presents now for exploratory laparotomy. Operative findings: Transition point noted at the lower portion of the mesh in the midline incision with a clear transition point between markedly distended small bowel and decompressed ileum. Obstruction was at the right lower quadrant at the edge of the mesh. Specimen: None Estimated blood loss: 5 mL Complications: None Procedure details: Patient was brought to the OR and placed in a supine position. After administering general anesthesia the patient's abdomen was prepped with ChloraPrep and draped in a sterile fashion. A Oliver catheter was also inserted at this time. A surgical time-out was called the consent confirmed. Patient received preoperative antibiotics and Venodyne boots were in place. Local anesthesia was infiltrated in the lower midline. A lower midline incision was made below the palpable mesh and carried out through subcutaneous tissue through linea alba into the peritoneum. Abdomen was explored in the above findings noted. Dilated loop was identified adherent to the mesh in the right lower quadrant. Gentle dissection was used to free the adhesions to the anterior abdominal wall. A clear transition point was identified in the mid ileum which was lysed using a Metzenbaum scissors. Once the area of obstruction was fully mobilized the remainder of the distal small bowel was examined. Some adhesions to the anterior abdominal wall were also taken down but no other obstructing lesions could be identified. The bowel was returned to the abdominal cavity and the wounds irrigated with saline solution and suctioned dry. Fascia was closed in the midline using a running looped PDS 0. Dermis was reapproximated using interrupted 3-0 Polysorb sutures. Skin was then closed using skin hilary. The patient tolerated the procedure well. Sponge, instrument, and needle counts were reported as correct. The patient was transferred to PACU in stable condition.
[2024-10-25 15:07] LABS: Glucose, Whole Blood 223 mg/dL (60-115)
[2024-10-25] MEDS: 0.9 % Sodium Chloride Flush 3 ML SYRINGE IVFLUSH ×2 (16:33→22:45)
[2024-10-25 17:33] LABS: Glucose, Whole Blood 225 mg/dL (60-115)
--- NOTE | 2024-10-25 20:00 | PC.NURSE ---
Patient reports that he takes tamsulosin for BPH, no home medications listed for patient, Pharmacy called about med rec, per pharmacy they will look into it, and will call patients pharmacy to verify.
[2024-10-25 23:21] LABS: Glucose, Whole Blood 264 mg/dL (60-115)
[2024-10-26] VITALS (18 sets, daily range): BP systolic 118–145; BP diastolic 60–89; PULSE 105–123; RESP 16–20; TEMP 36.4–38.8; O2SAT 90–96
--- NOTE | 2024-10-26 | ECG_ITS ---
Test Reason : left chest pain Blood Pressure : */* mmHG Vent. Rate : 120 BPM Atrial Rate : 120 BPM P-R Int : 96 ms QRS Dur : 100 ms QT Int : 438 ms P-R-T Axes : * 20 29 degrees QTcB Int : 619 ms Sinus tachycardia with short IL with occasional Premature ventricular complexes Septal infarct , age undetermined Prolonged QT Abnormal ECG When compared with ECG of 25-Oct-2024 05:09, Premature ventricular complexes are now Present IL interval has decreased QRS axis Shifted right Referred By: Brian Baker Electronically Signed By: ANGELA TORO MD
[2024-10-26 01:01] LABS: Appearance Urine Turbid; Glucose Urine UA 500 mg/dL (Negative); PH 5.5 (5.0-9.0); Specific Gravity - Urine 1.025 (1.005-1.025); UACC Culture Trigger YES; UMIC TRIGGER UACC YES
[2024-10-26 01:22] LABS: Hematocrit 44.4 % (42.0-52.0); Hemoglobin 14.9 g/dl (14.0-18.0); Mean Corpuscular HGB Conc 33.6 g/dl (31.0-36.0); Mean Corpuscular Hemoglobin 27.4 pg (27.0-33.0); Mean Corpuscular Volume 81.6 fL (80.0-98.0); NRBC Abs Auto 0.000 X10*3/uL (0.0-0.012); NRBC Pct Auto 0.0 /100WBC (0.0-0.2); Platelet Count 360 X10*3/uL (160-400); Red Blood Count 5.44 X10*6/uL (4.60-5.80); White Blood Count 11.2 X10*3/uL (4.8-10.8)
[2024-10-26 01:45] LABS: Troponin-I High Sensitivity 5.1 ng/L (<3.5-35.0)
[2024-10-26 01:55] LABS: Alanine Aminotransferase 15 U/L (0-40); Albumin Level 3.3 g/dL (3.5-5.0); Alkaline Phosphatase 74 U/L (39-117); Anion Gap 15 (12-20); Aspartate Amino Transferase 16 U/L (5-37); Blood Urea Nitrogen 16 mg/dL (9-16); Calcium 7.5 mg/dL (8.4-10.2); Carbon Dioxide 24 mmol/L (22-29); Chloride 98 mmol/L (96-108); Creatinine Clr Calc Pharmacy 133.6; Estimated Glomerular Filt Rate > 60; Magnesium 2.1 mg/dL (1.6-2.6); Potassium 2.9 mmol/L (3.3-5.1); Sodium 134 mmol/L (135-145); Total Protein 5.8 g/dL (6.5-8.0)
[2024-10-26 02:03] LABS: Band Neutrophils Percent 29 % (3-5); Lymphocytes Absolute Manual 0.9 X10*3/uL (1.2-4.9); Lymphocytes Percent Manual 8 % (20-40); Monocytes Absolute Manual 1.0 X10*3/uL (0.1-1.2); Monocytes Percent Manual 9 % (2-11); Neutrophils Absolute Manual 9.3 X10*3/uL (2.0-8.3); Neutrophils Percent Manual 54 % (45-73)
[2024-10-26 02:06] LABS: RBC Morphology NORMAL; Toxic Granulation PRESENT; Toxic Vacuolation PRESENT
[2024-10-26] MEDS: Potassium Chloride/H20 10 MEQ/100 ML PIGGYBACK 100 MEQ IV ×9 (02:23→18:38)
[2024-10-26] MEDS: Lactated Ringers 1,000 ML 125 ML IVCONT ×3 (03:32→17:08)
--- NOTE | 2024-10-26 05:46 | PM.EVENT ---
Event Note Date of Service: 10/26/24 Event Note: Contacted last night around 11 PM to notify pt started to develop sinus tachycardia BP 120 and 130. Other vital signs are stable. Rectal temperature was checked and it was 101.3. Patient has been receiving antipyretics. Per nursing, he has been he is a spirometry. CXR obtained and showed markedly hypoventilatory exam, suspected cardiomegaly without evidence of acute cardiac or pulmonary abnormality. Patient has an indwelling urinary catheter. Urine sample was obtained and it is consistent with urinary tract infection. Urine culture was ordered. Other labs are remarkable for hypokalemia of 2.9. Leukocytosis improving and there is no lactic acidosis. Time Spent With Patient Time: Total time managing care of this patient today ____ minutes.
[2024-10-26] MEDS: diazePAM 10 MG/2 ML CARTRIDGE 5 MG IVPUSH (05:58)
[2024-10-26 06:18] LABS: Glucose, Whole Blood 229 mg/dL (60-115)
--- NOTE | 2024-10-26 06:46 | PC.NURSE ---
230: Patient sustaining sinus tach in the 120s-130s after going to bathroom, rectal temp taken at 101.3, IV tylenol given per APR, Rolf Stacy made aware, new orders placed. labs drawn, urine sent to lab, CXR taken. 020: Rectal temp rechecked at 101.1, Dr. Bansal made aware new orders placed per APR. 050: Rectal temp rechecked at 100.2, Dr. Bansal made aware.
[2024-10-26 06:57] LABS: Anion Gap 14 (12-20); Blood Urea Nitrogen 16 mg/dL (9-16); Calcium 7.4 mg/dL (8.4-10.2); Carbon Dioxide 26 mmol/L (22-29); Chloride 98 mmol/L (96-108); Creatinine Clr Calc Pharmacy 139.5; Estimated Glomerular Filt Rate > 60; Potassium 3.2 mmol/L (3.3-5.1); Sodium 135 mmol/L (135-145)
[2024-10-26] MEDS: 0.9 % Sodium Chloride Flush 3 ML SYRINGE IVFLUSH ×3 (07:48→22:52)
--- NOTE | 2024-10-26 08:54 | P.PNGS_ITS ---
Subjective Subjective Date of Service: 10/26/24 Interval history: Patient reporting left-sided chest pain this morning. Had a fever during the night. Reports having several liquid bowel movements throughout the night. Requesting liquids to drink. Physical Exam 2 Vital Signs: Vital Signs: Last Vital Signs Temp 98.3 F 10/26/24 07:57 Pulse 121 H 10/26/24 08:05 Resp 20 10/26/24 08:42 BP 118/75 10/26/24 08:05 Pulse Ox 94 10/26/24 08:05 O2 Del Method Nasal Cannula 10/26/24 08:05 O2 Flow Rate 2 10/26/24 08:05 BMI result Body Mass Index 35.0 Const: General: tired appearing Nutritional Appearance: well nourished O rientation/consciousness: patient oriented x3 Resp: Effort & Inspection: normal respiratory effort, no audible wheezes, no cough and no respiratory distress Cardio: Other: Tachycardia GI: Other: Distended, tympany, incision clean and intact. Some bowel sounds noted. Skin: Other: Warm and dry, no rash Neuro: General: patient oriented x3 Objective Data Active Medications Calcium Carbonate (Calcium Carbonate 750 Mg Tab.Chew) 750 mg PO Q4H PRN PRN Reason: Heartburn Last Admin: 10/26/24 08:42 Dose: 750 mg Documented By: ELISHA Dextrose (Dextrose 50 % 25 Gm/50 Ml Syringe) 25 gm IVPUSH Q15M PRN; Protocol PRN Reason: per Hypoglycemia Standing Ord. Diazepam (Diazepam 10 Mg/2 Ml Cartridge) 5 mg IVPUSH Q4H PRN PRN Reason: Opiate Withdrawal Last Admin: 10/26/24 05:58 Dose: 5 mg Documented By: CARLEE Glucose (Glucose Gel 15 Gm Gel..Gram.) 15 gm PO Q15M PRN; Protocol PRN Reason: per Hypoglycemia Standing Ord. Acetaminophen (Ofirmev) 1,000 mg in 100 mls @ 400 mls/hr IV Q6H PRN PRN Reason: Pain, Mild (Pain Scale 1-3) Last Infusion: 10/26/24 00:49 Dose: Infused Documented By: CARLEE Lactated Ringer's (Lr) 1,000 mls @ 125 mls/hr IVCONT .Q8H [facility] Last Admin: 10/26/24 03:32 Dose: 125 mls/hr Documented By: CARLEE Piperacillin Sod/Tazobactam (Sod 3.375 gm/ Sodium Chloride) 50 mls @ 100 mls/hr IV Q6H [facility] Last Infusion: 10/26/24 05:15 Dose: Infused Documented By: CARLEE Potassium Chloride (Potassium Chloride/H20) 10 meq in 100 mls @ 100 mls/hr IV ONCE ONE Stop: 10/26/24 09:09 Last Admin: 10/26/24 08:39 Dose: 100 mls/hr Documented By: ELISHA Magnesium Sulfate (Magnesium Sulfate/H2o) 2 gm in 50 mls @ 25 mls/hr IV ONCE ONE Stop: 10/26/24 10:50 Insulin Human Lispro (Insulin Lispro 100 Unit/Ml 3 Ml Vial) 0 unit SUBCUT Q6H [facility]; Protocol Last Admin: 10/26/24 06:16 Dose: 4 unit Documented By: CARLEE Melatonin (Melatonin 3 Mg Tablet) 6 mg PO BEDTIME PRN PRN Reason: Insomnia Morphine Sulfate (Morphine Sulfate 2 Mg/Ml Cartridge) 4 mg IVPUSH Q4H PRN; Protocol PRN Reason: Pain, Severe (Pain Scale 7-10) Last Admin: 10/26/24 08:42 Dose: 4 mg Documented By: ELISHA Sodium Chloride (0.9 % Sodium Chloride Flush 3 Ml Syringe) 3 ml IVFLUSH [facility] Last Admin: 10/26/24 07:48 Dose: 3 ml Documented By: ELISHA Labs 10/26/24 01:04 10/26/24 06:04 Labs: Laboratory Results - last 24 hr 10/25/24 10/25/24 10/25/24 06:07 12:04 15:02 MCV MCH MCHC RDW Plt Count MPV Immature Gran % (Auto) Neut % (Auto) Lymph % (Auto) [place] % (Auto) Eos % (Auto) Baso % (Auto) Lymph # (Auto) [place] # (Auto) Eos # (Auto) Baso # (Auto) Abs Immat Gran (auto) Absolute Neuts (auto) Absolute Nucleated RBC Nucleated RBC % (auto) Neutrophils % (Manual) Band Neutrophils % Lymphocytes % (Manual) Monocytes % (Manual) Abs Neuts (Manual) Lymphocytes # (Manual) Monocytes # (Manual) Toxic Granulation Toxic Vacuolation Platelet Estimate Plt Morphology Comment RBC Morphology Hold Purple Top Anion Gap Estim Creat Clear Calc Estimated GFR POC Glucose 256 H 223 H Random Glucose Estimat Average Glucose 226 Hemoglobin A1c % 9.5 H Lactic Acid Calcium Phosphorus Magnesium Total Bilirubin AST ALT Alkaline Phosphatase Total Protein Albumin Urine Color Urine Appearance Urine pH Ur Specific [place] Urine Protein Urine Glucose (UA) Urine Ketones Urine Blood Urine Nitrite Ur Leukocyte Esterase Urine RBC Urine WBC Ur Squamous Epith Cells Urine Bacteria Hyaline Casts 10/25/24 10/25/24 10/26/24 17:29 23:09 00:45 MCV MCH MCHC RDW Plt Count MPV Immature Gran % (Auto) Neut % (Auto) Lymph % (Auto) [place] % (Auto) Eos % (Auto) Baso % (Auto) Lymph # (Auto) [place] # (Auto) Eos # (Auto) Baso # (Auto) Abs Immat Gran (auto) Absolute Neuts (auto) Absolute Nucleated RBC Nucleated RBC % (auto) Neutrophils % (Manual) Band Neutrophils % Lymphocytes % (Manual) Monocytes % (Manual) Abs Neuts (Manual) Lymphocytes # (Manual) Monocytes # (Manual) Toxic Granulation Toxic Vacuolation Platelet Estimate Plt Morphology Comment RBC Morphology Hold Purple Top Anion Gap Estim Creat Clear Calc Estimated GFR POC Glucose 225 H 264 H Random Glucose Estimat Average Glucose Hemoglobin A1c % Lactic Acid Calcium Phosphorus Magnesium Total Bilirubin AST ALT Alkaline Phosphatase Total Protein Albumin Urine Color Straw Urine Appearance Turbid Urine pH 5.5 Ur Specific [place] 1.025 Urine Protein 300 (3+) H Urine Glucose (UA) 500 H Urine Ketones 15 Urine Blood Large (3+) H Urine Nitrite Negative Ur Leukocyte Esterase Small (1+) H Urine RBC >20 H Urine WBC 6-10 H Ur Squamous Epith Cells 6-10 Urine Bacteria None Seen Hyaline Casts 3-5 10/26/24 10/26/24 10/26/24 01:04 06:04 06:05 MCV 81.6 MCH 27.4 MCHC 33.6 RDW 13.3 Plt Count 360 MPV 9.7 Immature Gran % (Auto) Cancelled Neut % (Auto) Cancelled Lymph % (Auto) Cancelled [place] % (Auto) Cancelled Eos % (Auto) Cancelled Baso % (Auto) Cancelled Lymph # (Auto) Cancelled [place] # (Auto) Cancelled Eos # (Auto) Cancelled Baso # (Auto) Cancelled Abs Immat Gran (auto) Cancelled Absolute Neuts (auto) Cancelled Absolute Nucleated RBC 0.000 Nucleated RBC % (auto) 0.0 Neutrophils % (Manual) 54 Band Neutrophils % 29 H Lymphocytes % (Manual) 8 L Monocytes % (Manual) 9 Abs Neuts (Manual) 9.3 H Lymphocytes # (Manual) 0.9 L Monocytes # (Manual) 1.0 Toxic Granulation PRESENT Toxic Vacuolation PRESENT Platelet Estimate NORMAL Plt Morphology Comment NORMAL RBC Morphology NORMAL Hold Purple Top SEE NOTE Anion Gap 15 14 Estim Creat Clear Calc 133.6 139.5 Estimated GFR > 60 > 60 POC Glucose Random Glucose 275 H 222 H Estimat Average Glucose Hemoglobin A1c % Lactic Acid 1.6 Calcium 7.5 L D 7.4 L Phosphorus 2.7 Magnesium 2.1 Total Bilirubin 0.4 AST 16 ALT 15 Alkaline Phosphatase 74 Total Protein 5.8 L Albumin 3.3 L Urine Color Urine Appearance Urine pH Ur Specific [place] Urine Protein Urine Glucose (UA) Urine Ketones Urine Blood Urine Nitrite Ur Leukocyte Esterase Urine RBC Urine WBC Ur Squamous Epith Cells Urine Bacteria Hyaline Casts 10/26/24 06:13 MCV MCH MCHC RDW Plt Count MPV Immature Gran % (Auto) Neut % (Auto) Lymph % (Auto) [place] % (Auto) Eos % (Auto) Baso % (Auto) Lymph # (Auto) [place] # (Auto) Eos # (Auto) Baso # (Auto) Abs Immat Gran (auto) Absolute Neuts (auto) Absolute Nucleated RBC Nucleated RBC % (auto) Neutrophils % (Manual) Band Neutrophils % Lymphocytes % (Manual) Monocytes % (Manual) Abs Neuts (Manual) Lymphocytes # (Manual) Monocytes # (Manual) Toxic Granulation Toxic Vacuolation Platelet Estimate Plt Morphology Comment RBC Morphology Hold Purple Top Anion Gap Estim Creat Clear Calc Estimated GFR POC Glucose 229 H Random Glucose Estimat Average Glucose Hemoglobin A1c % Lactic Acid Calcium Phosphorus Magnesium Total Bilirubin AST ALT Alkaline Phosphatase Total Protein Albumin Urine Color Urine Appearance Urine pH Ur Specific [place] Urine Protein Urine Glucose (UA) Urine Ketones Urine Blood Urine Nitrite Ur Leukocyte Esterase Urine RBC Urine WBC Ur Squamous Epith Cells Urine Bacteria Hyaline Casts Microbiology Microbiology Results: Microbiology 10/24/24 16:51 Blood Culture - Preliminary Blood - Venous No growth after 24 hours. 10/24/24 16:50 Blood Culture - Preliminary Blood - Venous No growth after 24 hours. Procedures Date of Service Date of Service: 10/26/24 Progress Note: A&P Assessment and plan (1) Small bowel obstruction: Status: Acute Plan POD 1 following exploratory laparotomy, lysis of adhesions. Transition point noted adjacent to a mesh repair. Patient is now passing liquid stool this morning. Reporting chest pain. EKG with sinus tachycardia with short DC, occasional premature ventricular complexes. Septal infarct age indeterminate. Prolonged QT. Patient's symptoms reported to hospitalist team. Low-potassium repleted Recheck labs in a.m. Start clear liquid diet Out of bed, ambulation, incentive spirometry. Diabetes management per hospitalist team Time Spent With Patient Time: Total time managing care of this patient today ____ minutes. Quality Stroke Does the patient have a stroke diagnosis?: No VTE Prior VTE?: No VTE Risk Level:: Surgical - moderate VTE Device Contraindication: N/A - Device Ordered VTE Drug Contraindication: Treatment Not Indicated
--- NOTE | 2024-10-26 09:10 | HO.PM.IMPN ---
Subjective Subjective Date of Service: 10/26/24 Interval History: seen and examined this morning follow up for medical consultation s/p ex lap with lysis of adhesions 10/25 overnight fever up to 101 - cxr was done and was negative, UA concerning for UTI this am pt reported chest pain, on exam pain improved without intervention does report sob no cough had stools overnight Constitutional Constitutional: Denies chills Cardiovascular Cardiovascular: Reports chest pain, Denies palpitations and Reports dyspnea Respiratory Respiratory: Denies cough and Reports dyspnea Endocrine Endocrine: Denies palpitations Physical Exam Vital Signs: Vital Signs: Last Vital Signs Temp 98.3 F 10/26/24 07:57 Pulse 121 H 10/26/24 08:05 Resp 20 10/26/24 08:42 BP 118/75 10/26/24 08:05 Pulse Ox 94 10/26/24 08:05 O2 Del Method Nasal Cannula 10/26/24 08:05 O2 Flow Rate 2 10/26/24 08:05 BMI result Body Mass Index 35.0 Const: General: alert and awake Nutritional Appearance: average body habitus and obese Orientation/consciousness: patient oriented x3 Resp: Other: inspiratory crackles right side otherwise clear Effort & Inspection: normal respiratory effort, able to speak in complete sentences, no respiratory distress and no use of accessory muscles Cardio: Rate: regular rate GI: Other: abdominal incision covered with c/d/i bandage; abdominal distension Inspection: Yes distended : Other: maier in place Neuro: General: patient oriented x3, moves all extremities and CN's II-XI intact bilaterally Extrem: General: No pedal edema Objective Data Active Medications Calcium Carbonate (Calcium Carbonate 750 Mg Tab.Chew) 750 mg PO Q4H PRN PRN Reason: Heartburn Last Admin: 10/26/24 08:42 Dose: 750 mg Documented By: ELISHA Dextrose (Dextrose 50 % 25 Gm/50 Ml Syringe) 25 gm IVPUSH Q15M PRN; Protocol PRN Reason: per Hypoglycemia Standing Ord. Diazepam (Diazepam 10 Mg/2 Ml Cartridge) 5 mg IVPUSH Q4H PRN PRN Reason: Opiate Withdrawal Last Admin: 10/26/24 05:58 Dose: 5 mg Documented By: CARLEE Glucose (Glucose Gel 15 Gm Gel..Gram.) 15 gm PO Q15M PRN; Protocol PRN Reason: per Hypoglycemia Standing Ord. Acetaminophen (Ofirmev) 1,000 mg in 100 mls @ 400 mls/hr IV Q6H PRN PRN Reason: Pain, Mild (Pain Scale 1-3) Last Infusion: 10/26/24 00:49 Dose: Infused Documented By: CARLEE Lactated Ringer's (Lr) 1,000 mls @ 125 mls/hr IVCONT .Q8H [facility] Last Admin: 10/26/24 03:32 Dose: 125 mls/hr Documented By: CARLEE Piperacillin Sod/Tazobactam (Sod 3.375 gm/ Sodium Chloride) 50 mls @ 100 mls/hr IV Q6H [facility] Last Infusion: 10/26/24 05:15 Dose: Infused Documented By: CARLEE Magnesium Sulfate (Magnesium Sulfate/H2o) 2 gm in 50 mls @ 25 mls/hr IV ONCE ONE Stop: 10/26/24 10:50 Insulin Human Lispro (Insulin Lispro 100 Unit/Ml 3 Ml Vial) 0 unit SUBCUT Q6H [facility]; Protocol Last Admin: 10/26/24 06:16 Dose: 4 unit Documented By: CARLEE Melatonin (Melatonin 3 Mg Tablet) 6 mg PO BEDTIME PRN PRN Reason: Insomnia Morphine Sulfate (Morphine Sulfate 2 Mg/Ml Cartridge) 4 mg IVPUSH Q4H PRN; Protocol PRN Reason: Pain, Severe (Pain Scale 7-10) Last Admin: 10/26/24 08:42 Dose: 4 mg Documented By: ELISHA Sodium Chloride (0.9 % Sodium Chloride Flush 3 Ml Syringe) [facility] Last Admin: 10/26/24 07:48 Dose: 3 ml Documented By: ELISHA Tamsulosin HCl (Tamsulosin Hcl 0.4 Mg Capsule) 0.4 mg PO BEDTIME [facility] Labs 10/26/24 01:04 10/26/24 09:25 Labs: Laboratory Results - last 24 hr 10/25/24 10/25/24 10/25/24 06:07 12:04 15:02 MCV MCH MCHC RDW Plt Count MPV Immature Gran % (Auto) Neut % (Auto) Lymph % (Auto) [place] % (Auto) Eos % (Auto) Baso % (Auto) Lymph # (Auto) [place] # (Auto) Eos # (Auto) Baso # (Auto) Abs Immat Gran (auto) Absolute Neuts (auto) Absolute Nucleated RBC Nucleated RBC % (auto) Neutrophils % (Manual) Band Neutrophils % Lymphocytes % (Manual) Monocytes % (Manual) Abs Neuts (Manual) Lymphocytes # (Manual) Monocytes # (Manual) Toxic Granulation Toxic Vacuolation Platelet Estimate Plt Morphology Comment RBC Morphology Hold Purple Top Anion Gap Estim Creat Clear Calc Estimated GFR POC Glucose 256 H 223 H Random Glucose Estimat Average Glucose 226 Hemoglobin A1c % 9.5 H Lactic Acid Calcium Phosphorus Magnesium Total Bilirubin AST ALT Alkaline Phosphatase Total Protein Albumin Urine Color Urine Appearance Urine pH Ur Specific [place] Urine Protein Urine Glucose (UA) Urine Ketones Urine Blood Urine Nitrite Ur Leukocyte Esterase Urine RBC Urine WBC Ur Squamous Epith Cells Urine Bacteria Hyaline Casts 10/25/24 10/25/24 10/26/24 17:29 23:09 00:45 MCV MCH MCHC RDW Plt Count MPV Immature Gran % (Auto) Neut % (Auto) Lymph % (Auto) [place] % (Auto) Eos % (Auto) Baso % (Auto) Lymph # (Auto) [place] # (Auto) Eos # (Auto) Baso # (Auto) Abs Immat Gran (auto) Absolute Neuts (auto) Absolute Nucleated RBC Nucleated RBC % (auto) Neutrophils % (Manual) Band Neutrophils % Lymphocytes % (Manual) Monocytes % (Manual) Abs Neuts (Manual) Lymphocytes # (Manual) Monocytes # (Manual) Toxic Granulation Toxic Vacuolation Platelet Estimate Plt Morphology Comment RBC Morphology Hold Purple Top Anion Gap Estim Creat Clear Calc Estimated GFR POC Glucose 225 H 264 H Random Glucose Estimat Average Glucose Hemoglobin A1c % Lactic Acid Calcium Phosphorus Magnesium Total Bilirubin AST ALT Alkaline Phosphatase Total Protein Albumin Urine Color Straw Urine Appearance Turbid Urine pH 5.5 Ur Specific [place] 1.025 Urine Protein 300 (3+) H Urine Glucose (UA) 500 H Urine Ketones 15 Urine Blood Large (3+) H Urine Nitrite Negative Ur Leukocyte Esterase Small (1+) H Urine RBC >20 H Urine WBC 6-10 H Ur Squamous Epith Cells 6-10 Urine Bacteria None Seen Hyaline Casts 3-5 10/26/24 10/26/24 10/26/24 01:04 06:04 06:05 MCV 81.6 MCH 27.4 MCHC 33.6 RDW 13.3 Plt Count 360 MPV 9.7 Immature Gran % (Auto) Cancelled Neut % (Auto) Cancelled Lymph % (Auto) Cancelled [place] % (Auto) Cancelled Eos % (Auto) Cancelled Baso % (Auto) Cancelled Lymph # (Auto) Cancelled [place] # (Auto) Cancelled Eos # (Auto) Cancelled Baso # (Auto) Cancelled Abs Immat Gran (auto) Cancelled Absolute Neuts (auto) Cancelled Absolute Nucleated RBC 0.000 Nucleated RBC % (auto) 0.0 Neutrophils % (Manual) 54 Band Neutrophils % 29 H Lymphocytes % (Manual) 8 L Monocytes % (Manual) 9 Abs Neuts (Manual) 9.3 H Lymphocytes # (Manual) 0.9 L Monocytes # (Manual) 1.0 Toxic Granulation PRESENT Toxic Vacuolation PRESENT Platelet Estimate NORMAL Plt Morphology Comment NORMAL RBC Morphology NORMAL Hold Purple Top SEE NOTE Anion Gap 15 14 Estim Creat Clear Calc 133.6 139.5 Estimated GFR > 60 > 60 POC Glucose Random Glucose 275 H 222 H Estimat Average Glucose Hemoglobin A1c % Lactic Acid 1.6 Calcium 7.5 L D 7.4 L Phosphorus 2.7 Magnesium 2.1 Total Bilirubin 0.4 AST 16 ALT 15 Alkaline Phosphatase 74 Total Protein 5.8 L Albumin 3.3 L Urine Color Urine Appearance Urine pH Ur Specific [place] Urine Protein Urine Glucose (UA) Urine Ketones Urine Blood Urine Nitrite Ur Leukocyte Esterase Urine RBC Urine WBC Ur Squamous Epith Cells Urine Bacteria Hyaline Casts 10/26/24 06:13 MCV MCH MCHC RDW Plt Count MPV Immature Gran % (Auto) Neut % (Auto) Lymph % (Auto) [place] % (Auto) Eos % (Auto) Baso % (Auto) Lymph # (Auto) [place] # (Auto) Eos # (Auto) Baso # (Auto) Abs Immat Gran (auto) Absolute Neuts (auto) Absolute Nucleated RBC Nucleated RBC % (auto) Neutrophils % (Manual) Band Neutrophils % Lymphocytes % (Manual) Monocytes % (Manual) Abs Neuts (Manual) Lymphocytes # (Manual) Monocytes # (Manual) Toxic Granulation Toxic Vacuolation Platelet Estimate Plt Morphology Comment RBC Morphology Hold Purple Top Anion Gap Estim Creat Clear Calc Estimated GFR POC Glucose 229 H Random Glucose Estimat Average Glucose Hemoglobin A1c % Lactic Acid Calcium Phosphorus Magnesium Total Bilirubin AST ALT Alkaline Phosphatase Total Protein Albumin Urine Color Urine Appearance Urine pH Ur Specific [place] Urine Protein Urine Glucose (UA) Urine Ketones Urine Blood Urine Nitrite Ur Leukocyte Esterase Urine RBC Urine WBC Ur Squamous Epith Cells Urine Bacteria Hyaline Casts Microbiology Microbiology Results: Microbiology 10/24/24 16:51 Blood Culture - Preliminary Blood - Venous No growth after 24 hours. 10/24/24 16:50 Blood Culture - Preliminary Blood - Venous No growth after 24 hours. Assessment and Plan (1) Hypokalemia: Status: Acute (2) Opiate dependence: Status: Acute Plan This is a 58 year old male with reported history of DM, BPH, chronic back pain who presents with abdominal pain found to have SBO SBO was unable to have NGT and had worsening abdominal pain and distention therefore underwent ex lap with lysis of adhesions on 10/25 currently POD #1 surgical management as per general surgery Fever had fever overnight. lactic normal likely atelectasis vs possible UTI. cxr overnight unremarkable continue zosyn follow urine culture, blood cultures Prolonged Qtc likely due to low K mag above 2 replace K to goal of 4 repeat EKG shows improvement follow on tele chest pain seems pleuritic in nature. also reproducible check trop, cxr if trop elevated, will involve cardiology check echo controlled NIDDM hba1c 9.5 no meds on claim history or med rec follow POCs, cover with SSI when tolerating diet, will need to start lantus HTN Secondary to pain likely, pt not normally on antihypertensives follow BP Opioid use disorder uses oxycodone purchased without prescription 5mg 4x daily per pt report Toxicology screen positive for oxycodone prn valium IV morphine, oxycodone for pain control follow COWS addiction med following Thank you for allowing us to participate in the care of this patient, we will follow along with you. Quality Stroke Does the patient have a stroke diagnosis?: No VTE Prior VTE?: No VTE Risk Level:: Surgical - moderate VTE Device Contraindication: N/A - Device Ordered VTE Drug Contraindication: Treatment Not Indicated
--- NOTE | 2024-10-26 09:18 | PC.NURSE ---
Patient complaining of intermittent chest pain this AM, surg. provider made aware and at bedside, ekg ordered, and read. Hospital provider at bedside. transfer to [facility] along with other orders.
[2024-10-26] MEDS: Potassium Chloride ER 20 MEQ TAB.ER.PRT 40 MEQ PO (09:35)
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
[2024-10-26] MEDS: Magnesium Sulfate/H2O 2 GM/50 ML PIGGYBACK IV (09:42)
--- NOTE | 2024-10-26 09:54 | ECG_ITS ---
Test Reason : chest pain Blood Pressure : */* mmHG Vent. Rate : 117 BPM Atrial Rate : 117 BPM P-R Int : 152 ms QRS Dur : 98 ms QT Int : 340 ms P-R-T Axes : 64 -22 62 degrees QTcB Int : 474 ms Poor data quality, interpretation may be adversely affected Sinus tachycardia with frequent Premature ventricular complexes Otherwise normal ECG When compared with ECG of 26-Oct-2024 08:39, HI interval has increased Nonspecific T wave abnormality, worse in Lateral leads Referred By: Shyla Benitez Electronically Signed By:
[2024-10-26 10:19] LABS: Potassium 3.3 mmol/L (3.3-5.1)
[2024-10-26 10:24] LABS: B Type Natriuretic Peptide 27 pg/mL (<100)
[2024-10-26 10:28] LABS: Troponin-I High Sensitivity 6.2 ng/L (<3.5-35.0)
[2024-10-26 12:03] LABS: Glucose, Whole Blood 248 mg/dL (60-115)
[2024-10-26 13:07] LABS: Potassium 3.3 mmol/L (3.3-5.1)
[2024-10-26 13:20] LABS: Troponin-I High Sensitivity 4.0 ng/L (<3.5-35.0)
--- NOTE | 2024-10-26 13:31 | MHC.RECOVRN ---
T/W went to meet with pt. in 368-1 (prior to tx to 446) following referral for opiate use consult. Pt underwent surgical procedure yesterday for SBO and is in bed resting and with some discomfort. MAYDA Mansfield in room during my visit and assessing pt. for reports of chest discomfort and lower abd. pain. Pt also tacycardic. PA ordering chest x ray. T/W met with pt. about use history that he uses 5 mg of Percocet four times a day. Non-prescription. And he said he?s been doing it for the last 10 to 15 years. He says he takes it for chronic back and neck, pain, restless, legs, and sleep. This morning COWS was recorded as a five. Pt has an order for morphine 4 mg IV push Q4. And he received a dose that this morning at 8:42 with minimal relief. Pt unable to participate in full eval due to discomfort. T/W consulted with Kamla Gamble NP and received recommendations: In addition to morphine pt. should received oxycodone 5mg QID (as per reports of previous use) and once medically stable we will discuss with him the potential of transitioning to buprenorphine (if he is interested). T/W passed recommendations along to MAYDA Meraz and orders started. Pt was moved to [facility] for increased monitoring. ACS to F/U with pt. once stable/comfortable for full eval and ongoing treatment options. Report to ACS team.
--- NOTE | 2024-10-26 15:21 | MHC.RECOVRN ---
T/W met with pt. in 446 to F/U and assess any W/D sx. Pt resting comfortably. Did not wake him up. Went over ACS recommendations with pt's nurse. She reports that he was offered the oxy earlier but wanted the morphine, which he received. He was also exp. fever which was treated with APAP with good effect.
[2024-10-26 17:03] LABS: Hematocrit 43.0 % (42.0-52.0); Hemoglobin 14.4 g/dl (14.0-18.0); Mean Corpuscular HGB Conc 33.5 g/dl (31.0-36.0); Mean Corpuscular Hemoglobin 27.2 pg (27.0-33.0); Mean Corpuscular Volume 81.3 fL (80.0-98.0); NRBC Abs Auto 0.000 X10*3/uL (0.0-0.012); NRBC Pct Auto 0.0 /100WBC (0.0-0.2); Platelet Count 363 X10*3/uL (160-400); Red Blood Count 5.29 X10*6/uL (4.60-5.80); White Blood Count 16.3 X10*3/uL (4.8-10.8)
[2024-10-26] MEDS: oxyCODONE HCl Immed Release 5 MG TABLET PO (17:13)
[2024-10-26 17:20] LABS: Anion Gap 13 (12-20); Blood Urea Nitrogen 12 mg/dL (9-16); Calcium 7.6 mg/dL (8.4-10.2); Carbon Dioxide 26 mmol/L (22-29); Chloride 96 mmol/L (96-108); Creatinine Clr Calc Pharmacy 155.5; Estimated Glomerular Filt Rate > 60; Potassium 3.3 mmol/L (3.3-5.1); Sodium 132 mmol/L (135-145)
[2024-10-26 18:09] LABS: Glucose, Whole Blood 238 mg/dL (60-115)
[2024-10-26 20:07] LABS: Glucose, Whole Blood 218 mg/dL (60-115)
[2024-10-26] MEDS: KCl 40 mEq in 0.9 % Sodium Chl 40 MEQ/1,000 ML IV.SOLN 125 MEQ IVCONT (20:21)
--- NOTE | 2024-10-26 20:35 | HO.POSTANES ---
Post Anesthesia Evaluation Post Anesthesia Evaluation Date of Service: 10/26/24 Vital Signs: Vital Signs Temp Pulse Resp BP Pulse Ox O2 Del Method O2 Flow Rate 10/26/24 19:10 97.8 F 108 H 18 145/82 H 92 Nasal Cannula 2 10/26/24 15:29 98.2 F 105 H 18 133/74 90 L Room Air 10/26/24 13:22 98.5 F 10/26/24 13:00 101.8 F H 10/26/24 08:42 20 Anesthesia: General Endotracheal-GETA Mental Status: Awake Pain Control: Satisfactory Nausea/Vomiting: None Hydration: Adequate Anesthesia-Related Issues: No Anes. Related Issues
[2024-10-26 22:18] LABS: Potassium 3.4 mmol/L (3.3-5.1)
[2024-10-26 23:37] LABS: Glucose, Whole Blood 196 mg/dL (60-115)
[2024-10-27] VITALS (10 sets, daily range): BP systolic 124–162; BP diastolic 68–87; PULSE 97–118; RESP 18–20; TEMP 36.1–36.6; O2SAT 90–95
--- NOTE | 2024-10-27 | ECG_ITS ---
Test Reason : QTc monitoring Blood Pressure : */* mmHG Vent. Rate : 104 BPM Atrial Rate : 104 BPM P-R Int : 146 ms QRS Dur : 104 ms QT Int : 364 ms P-R-T Axes : 57 -26 37 degrees QTcB Int : 478 ms Sinus tachycardia with occasional Premature ventricular complexes Otherwise normal ECG When compared with ECG of 27-Oct-2024 06:03, No significant change was found Referred By: Mari Price Electronically Signed By: ANGELA TORO MD
--- NOTE | 2024-10-27 | ECG_ITS ---
Test Reason : Follow up QT interval Blood Pressure : */* mmHG Vent. Rate : 109 BPM Atrial Rate : 109 BPM P-R Int : 150 ms QRS Dur : 96 ms QT Int : 362 ms P-R-T Axes : 60 -26 37 degrees QTcB Int : 487 ms Poor data quality, interpretation may be adversely affected Sinus tachycardia with occasional Premature ventricular complexes Otherwise normal ECG When compared with ECG of 26-Oct-2024 10:06, No significant change was found Referred By: Prieto Sanchez Electronically Signed By: ANGELA TORO MD
[2024-10-27] MEDS: KCl 40 mEq in 0.9 % Sodium Chl 40 MEQ/1,000 ML IV.SOLN 125 MEQ IVCONT ×3 (04:26→21:33)
[2024-10-27 06:11] LABS: Glucose, Whole Blood 211 mg/dL (60-115)
--- NOTE | 2024-10-27 07:00 | CA_ITS ---
Transthoracic Echocardiogram Patient (Last, First, Middle): Josue Donaldson, Gender: Male Date of : 1965 Age: 58 Procedure Date: 10/27/2024 Procedure Type: Transthoracic Echocardiogram Location: [facility] [place] Height: 175.26 cm Weight: 107.05 kg BSA: 2.22 m2 Heart Rate: bpm BP: 161 / 77 mmHg Data Entry Processor: Referring MD: Shyla OHARA Manager Of It: Jed Gay MD Symptoms: tachycardia Study Quality: Fair/Contrast ECG Rhythm: Sinus with extra beats Conclusions: - 1. Mildly dilated left ventricle with [id number] LV systolic dysfunction with LVEF of 40-45% 2. Normal cardiac valvular Dopplers 3. Normal RV systolic pressure 4. Mildly dilated ascending aorta at 3.8 cm 5. No gross pericardial effusion Findings Procedure Information Contrast agent, definity, is being given per protocol without apparent complications. Left Ventricle Mildly increased left ventricular cavity size. There is normal left ventricular wall thickness. The left ventricular systolic function is mild to moderately decreased. The visually estimated ejection fraction is between 40-45%. Spectral Doppler is indicative of an impaired relaxation filling pattern. E/E prime ratio is between 8 and 15 consistent with indeterminate filling pressures. Right Ventricle The right ventricle was not well visualized. Normal right ventricular cavity size. There is normal right ventricular systolic function. Atria The left atrium is normal in size. Interatrial shunt cannot be excluded. The right atrium is normal in size. Aortic Valve Normal aortic valve structure and function. There is no aortic valve stenosis. There is no aortic valve regurgitation. Mitral Valve Normal mitral valve structure and function. There is trace mitral valve regurgitation. There is no mitral valve stenosis. Pulmonic Valve The pulmonic valve was not well visualized. Tricuspid Valve Likely normal tricuspid valve structure and function. There is trace tricuspid valve regurgitation. The right ventricular systolic pressure is normal. The right ventricular systolic pressure is 26 mmHg. Normal right atrial pressure. There is no evidence of pulmonary hypertension. Great Vessels The pulmonary artery was not well visualized. There is mild dilatation of the ascending aorta measuring 3.80 cm. Venous The inferior vena cava is normal in size and collapses greater than 50% with inspiration. Pericardium/Pleural There is no evidence of pericardial effusion. Prior Study Comparison No prior study available for comparison. Measurements 2D Linear Measurements IVSd: 0.87 0.6-0.9/0.6-1.0 cm LVIDd: 6.15 3.9-5.3/4.2-5.9 cm LVIDd Index: 2.77 2.4-3.2/2.2-3.1 cm/m2 LVIDs: 5.09 2.0-3.6 cm LVPWd: 0.97 0.7-1.1 cm Ao Root: 3.40 2.1-3.5 cm LA Diam: 4.30 2.7-3.8/3.0-4.0 cm LAIDs Index: 1.94 1.5-2.3 cm/m2 LV Mass: 288.17 67-162/88-224 g LV Mass Index: 129.81 43-95/49-115 g/m2 LVOT Diam: 2.70 3.0+(-)1.3 cm 2D Systolic Function EF 4C: 48.50 >55% EF 2C: 32.70 >55% EF BiP: 40.00 >55% Mitral Valve MV Pk E: 1.15 MV PK A: 1.36 MV Decel Time: 139.00 E/A: 0.80 E'Lateral: 7.26 E'Medial: 8.16 E/E' Med: 14.10 E/E' Lat: 15.80 PHT: 41.00 MVA PHT: 5.37 Decel [place]: 8.26 Aortic Valve AoV Pk Armando: 1.76 AoV Mn Armando: 1.37 AoV VTI: 0.38 AoV Pk Grad: 12.00 Aov Mn Grad: 8.00 REX Cont.VTI: 2.69 LVOT LVOT Pk [place]: 0.85 LVOT Mn Armando: 0.55 LVOT VTI: 0.18 LVOT Pk Grad: 3.00 LVOT Mn Grad: 1.00 LVOT Diam: 2.70 LVOT Area: 5.73 Diastolic Function MV Pk E: 1.15 MV Pk A: 1.36 E/A: 0.80 E'Medial: 8.16 E/E' Med: 14.10 E' Laterial: 7.26 E/E' Lat: 15.80 Right Ventricle TAPSE (mm): 25.00 TVS' Armando: 20.00 Tricuspid Valve TR Pk Armando: 2.40 TR Pk Grad: 23.00 RA Press: 3.00 RVSP: 26.00 Great Vessels Aorta Ao Root-2D: 3.40 2.0-3.7 cm Ao Asc: 3.80 2.1-3.4 cm Pulmonary Valve PV Pk Armando: 1.38 Peak PV Grad: 8.00 Updated in Other Vendor System with Status of Final Jed Gay MD electronically signed on 10/28/2024 11:18:04 AM with status of Final
[2024-10-27 07:03] LABS: Anion Gap 14 (12-20); Blood Urea Nitrogen 12 mg/dL (9-16); Calcium 7.8 mg/dL (8.4-10.2); Carbon Dioxide 25 mmol/L (22-29); Chloride 100 mmol/L (96-108); Creatinine Clr Calc Pharmacy 160.8; Estimated Glomerular Filt Rate > 60; Magnesium 2.4 mg/dL (1.6-2.6); Potassium 3.6 mmol/L (3.3-5.1); Sodium 135 mmol/L (135-145)
[2024-10-27 07:04] LABS: Hematocrit 42.7 % (42.0-52.0); Hemoglobin 14.0 g/dl (14.0-18.0); Mean Corpuscular HGB Conc 32.8 g/dl (31.0-36.0); Mean Corpuscular Hemoglobin 27.1 pg (27.0-33.0); Mean Corpuscular Volume 82.8 fL (80.0-98.0); NRBC Abs Auto 0.000 X10*3/uL (0.0-0.012); NRBC Pct Auto 0.0 /100WBC (0.0-0.2); Platelet Count 381 X10*3/uL (160-400); Red Blood Count 5.16 X10*6/uL (4.60-5.80)
[2024-10-27 07:05] LABS: WBC ABN SCTR FOR CBC 1; White Blood Count 15.3 X10*3/uL (4.8-10.8)
--- NOTE | 2024-10-27 07:36 | P.PNIM_ITS ---
Subjective Subjective Date of Service: 10/27/24 Interval History: No fevers overnight Still with lower abd pain Intermittent left-sided chest pain 5-6 episodes of liquid diarrhea overnight No N/V Repeat KUB similar to previous, consistent with SBO Review of Systems Review of Systems: Yes all other systems are reviewed and are negative Physical Exam 2 Exam: Exam: General: AOx3, no acute distress. Resp: CTA bilaterally CVS: S1, S2, RR, tachycardic GI: Abd slightly firm, distended, tympanic. BS hypoactive. Surgical incision intact, clean, dry. Appropriately tender around incision. Skin: Warm, dry Neuro: Cranial nerves II-XII grossly intact bilaterally. Motor grossly intact bilaterally Extremities: No edema Psych: Appropriate affect Vital Signs: Vital Signs: Last Vital Signs Temp 96.9 F 10/27/24 03:42 Pulse 104 H 10/27/24 03:42 Resp 18 10/27/24 03:42 BP 161/77 H 10/27/24 03:42 Pulse Ox 93 10/27/24 03:42 O2 Del Method Nasal Cannula 10/27/24 03:42 O2 Flow Rate 2 10/27/24 03:42 BMI result Body Mass Index 35.0 Objective Data Active Medications Calcium Carbonate (Calcium Carbonate 750 Mg Tab.Chew) 750 mg PO Q4H PRN PRN Reason: Heartburn Last Admin: 10/27/24 02:00 Dose: 750 mg Documented By: BRYSON Dextrose (Dextrose 50 % 25 Gm/50 Ml Syringe) 25 gm IVPUSH Q15M PRN; Protocol PRN Reason: per Hypoglycemia Standing Ord. Diazepam (Diazepam 10 Mg/2 Ml Cartridge) 5 mg IVPUSH Q4H PRN PRN Reason: Opiate Withdrawal Last Admin: 10/26/24 05:58 Dose: 5 mg Documented By: CARLEE Glucose (Glucose Gel 15 Gm Gel..Gram.) 15 gm PO Q15M PRN; Protocol PRN Reason: per Hypoglycemia Standing Ord. Acetaminophen (Ofirmev) 1,000 mg in 100 mls @ 400 mls/hr IV Q6H PRN PRN Reason: Pain, Mild (Pain Scale 1-3) Last Infusion: 10/26/24 12:59 Dose: Infused Documented By: NASRIN Piperacillin Sod/Tazobactam (Sod 3.375 gm/ Sodium Chloride) 50 mls @ 100 mls/hr IV Q6H [facility] Last Infusion: 10/27/24 05:48 Dose: Infused Documented By: BRYSON Potassium Chloride/Sodium Chloride (Kcl 40 Meq In 0.9 % Sodium Chl) 40 meq in 1,000 mls @ 125 mls/hr IVCONT .Q8H [facility] Last Admin: 10/27/24 04:26 Dose: 125 mls/hr Documented By: BRYSON Insulin Human Lispro (Insulin Lispro 100 Unit/Ml 3 Ml Vial) 0 unit SUBCUT Q6H [facility]; Protocol Last Admin: 10/27/24 06:12 Dose: 4 unit Documented By: BRYSON Melatonin (Melatonin 3 Mg Tablet) 6 mg PO BEDTIME PRN PRN Reason: Insomnia Morphine Sulfate (Morphine Sulfate 2 Mg/Ml Cartridge) 6 mg IVPUSH Q3H PRN; Protocol PRN Reason: Pain, Severe (Pain Scale 7-10) Last Admin: 10/27/24 03:35 Dose: 6 mg Documented By: BRYSON Oxycodone HCl (Oxycodone Hcl Immed Release 5 Mg Tablet) 5 mg PO Q8H PRN PRN Reason: Pain, Moderate(Pain Scale 4-6) Last Admin: 10/26/24 17:13 Dose: 5 mg Documented By: NASRIN Potassium Chloride (Potassium Chloride Er 20 Meq Tab.Er.Prt) 40 meq PO TID [facility] Last Admin: 10/26/24 23:45 Dose: Not Given Documented By: BRYSON Non-Admin Reason: NPO Sodium Chloride (0.9 % Sodium Chloride Flush 3 Ml Syringe) 3 ml IVFLUSH QSHIFT [facility] Last Admin: 10/26/24 22:52 Dose: 3 ml Documented By: BRYSON Tamsulosin HCl (Tamsulosin Hcl 0.4 Mg Capsule) 0.4 mg PO BEDTIME [facility] Last Admin: 10/26/24 20:27 Dose: Not Given Documented By: BRYSON Non-Admin Reason: NPO Labs 10/27/24 06:33 10/27/24 06:33 Labs: Laboratory Results - last 24 hr 10/26/24 10/26/24 10/26/24 09:25 11:58 16:49 MCV 81.3 MCH 27.2 MCHC 33.5 RDW 13.3 Plt Count 363 MPV 9.5 Immature Gran % (Auto) Neut % (Auto) Lymph % (Auto) [place] % (Auto) Eos % (Auto) Baso % (Auto) Lymph # (Auto) [place] # (Auto) Eos # (Auto) Baso # (Auto) Abs Immat Gran (auto) Absolute Neuts (auto) Absolute Nucleated RBC 0.000 Nucleated RBC % (auto) 0.0 Anion Gap 13 Estim Creat Clear Calc 155.5 Estimated GFR > 60 POC Glucose 248 H Random Glucose 235 H Calcium 7.6 L Magnesium B-Natriuretic Peptide 27 10/26/24 10/26/24 10/26/24 18:05 19:55 23:34 MCV MCH MCHC RDW Plt Count MPV Immature Gran % (Auto) Neut % (Auto) Lymph % (Auto) [place] % (Auto) Eos % (Auto) Baso % (Auto) Lymph # (Auto) [place] # (Auto) Eos # (Auto) Baso # (Auto) Abs Immat Gran (auto) Absolute Neuts (auto) Absolute Nucleated RBC Nucleated RBC % (auto) Anion Gap Estim Creat Clear Calc Estimated GFR POC Glucose 238 H 218 H 196 H Random Glucose Calcium Magnesium B-Natriuretic Peptide 10/27/24 10/27/24 06:00 06:33 MCV 82.8 MCH 27.1 MCHC 32.8 RDW 13.2 Plt Count 381 MPV 9.7 Immature Gran % (Auto) Cancelled Neut % (Auto) Cancelled Lymph % (Auto) Cancelled [place] % (Auto) Cancelled Eos % (Auto) Cancelled Baso % (Auto) Cancelled Lymph # (Auto) Cancelled [place] # (Auto) Cancelled Eos # (Auto) Cancelled Baso # (Auto) Cancelled Abs Immat Gran (auto) Cancelled Absolute Neuts (auto) Cancelled Absolute Nucleated RBC 0.000 Nucleated RBC % (auto) 0.0 Anion Gap 14 Estim Creat Clear Calc 160.8 Estimated GFR > 60 POC Glucose 211 H Random Glucose 220 H Calcium 7.8 L Magnesium 2.4 B-Natriuretic Peptide Microbiology Microbiology Results: Microbiology 10/26/24 01:04 Blood Culture - Preliminary Blood - Venous No growth after 24 hours. 10/26/24 01:04 Blood Culture - Preliminary Blood - Venous No growth after 24 hours. 10/24/24 16:51 Blood Culture - Preliminary Blood - Venous No growth after 48 hours. 10/24/24 16:50 Blood Culture - Preliminary Blood - Venous No growth after 48 hours. Assessment and Plan (1) Small bowel obstruction: Status: Acute (2) S/P exploratory laparotomy: Status: Acute Plan This is a 58 year old male with reported history of DM, BPH, chronic back pain who presents with abdominal pain found to have SBO SBO was unable to have NGT due to previous nasal surgery, failed conservative measures and had worsening abd pain and distention s/p d ex lap through large midline incision with lysis of adhesions on 10/25 currently POD #2 currently on clear liquid diet surgical management as per general surgery Fever had recurrent fever on 10/26. lactic normal likely atelectasis vs possible UTI vs opioid withdrawal. cxr from 10/26 unremarkable; repeat KUB on 10/26 similar to previous continue zosyn follow urine culture, BCx negative @24h Prolonged Qtc likely due to low K mag above 2 replace K to goal of 4 repeat EKG shows improvement, now 487 follow on tele chest pain seems pleuritic in nature. also reproducible cxr unremarkable, serial trops all flat and WNL no indication to involve cardiology at [facility] time check echo controlled NIDDM hba1c 9.5 no meds on claim history or med rec follow POCs, cover with SSI when tolerating diet, will need to start lantus HTN Secondary to pain likely, pt not normally on antihypertensives follow BP Opioid use disorder uses oxycodone purchased without prescription 5mg 4x daily for 10-15 years Toxicology screen positive for oxycodone prn valium IV morphine, oxycodone for pain control follow COWS addiction med following Thank you for allowing us to participate in the care of this patient, we will follow along with you. Quality Stroke Does the patient have a stroke diagnosis?: No VTE Prior VTE?: No VTE Risk Level:: Surgical - moderate VTE Device Contraindication: N/A - Device Ordered VTE Drug Contraindication: Treatment Not Indicated
--- NOTE | 2024-10-27 07:52 | PM.PNGS ---
Subjective Subjective Date of Service: 10/27/24 <Callie Boyd PA-C - Last Filed: 10/27/24 07:59> 10/27/24 <Brian Baker MD - Last Filed: 10/27/24 08:04> Interval history: Thinks he feels better overall but c/o pain at incision. C/o bloating. Denies nausea and vomiting but is belching. Has had some liquid BMs per nursing. <Callie Boyd PA-C - Last Filed: 10/27/24 07:59> Physical Exam Vital Signs: Vital Signs: Last Vital Signs Temp 96.9 F 10/27/24 03:42 Pulse 104 H 10/27/24 03:42 Resp 18 10/27/24 03:42 BP 161/77 H 10/27/24 03:42 Pulse Ox 93 10/27/24 03:42 O2 Del Method Nasal Cannula 10/27/24 03:42 O2 Flow Rate 2 10/27/24 03:42 BMI result Body Mass Index 35.0 <Callie Boyd PA-C - Last Filed: 10/27/24 07:59> Const: Other: uncomfortable appearing <Callie Boyd PA-C - Last Filed: 10/27/24 07:59> General: alert <MDITRI Miller Last Filed: 10/27/24 07:59> Orientation/consciousness: patient oriented x3 <Callie Boyd PA-C - Last Filed: 10/27/24 07:59> Resp: Other: some increased work of breathing <Callie Boyd PA-C - Last Filed: 10/27/24 07:59> Effort & Inspection: able to speak in complete sentences and not tachypneic <DMITRI Miller Last Filed: 10/27/24 07:59> GI: Other: abdomen remains significantly distended and tympanitic tender around incision incision clean <DMITRI Miller Last Filed: 10/27/24 07:59> Palpation (GI): Soft to palpation and no guarding <DMITRI Miller Last Filed: 10/27/24 07:59> Skin: General skin exam: no rashes or lesions noted <Callie Boyd PA-C - Last Filed: 10/27/24 07:59> Neuro: General: patient oriented x3 <Callie Boyd PA-C - Last Filed: 10/27/24 07:59> Objective Data Active Medications Calcium Carbonate (Calcium Carbonate 750 Mg Tab.Chew) 750 mg PO Q4H PRN PRN Reason: Heartburn Last Admin: 10/27/24 02:00 Dose: 750 mg Documented By: BRYSON Dextrose (Dextrose 50 % 25 Gm/50 Ml Syringe) 25 gm IVPUSH Q15M PRN; Protocol PRN Reason: per Hypoglycemia Standing Ord. Diazepam (Diazepam 10 Mg/2 Ml Cartridge) 5 mg IVPUSH Q4H PRN PRN Reason: Opiate Withdrawal Last Admin: 10/26/24 05:58 Dose: 5 mg Documented By: CARLEE Glucose (Glucose Gel 15 Gm Gel..Gram.) 15 gm PO Q15M PRN; Protocol PRN Reason: per Hypoglycemia Standing Ord. Acetaminophen (Ofirmev) 1,000 mg in 100 mls @ 400 mls/hr IV Q6H PRN PRN Reason: Pain, Mild (Pain Scale 1-3) Last Infusion: 10/26/24 12:59 Dose: Infused Documented By: NASRIN Piperacillin Sod/Tazobactam (Sod 3.375 gm/ Sodium Chloride) 50 mls @ 100 mls/hr IV Q6H [facility] Last Infusion: 10/27/24 05:48 Dose: Infused Documented By: BRYSON Potassium Chloride/Sodium Chloride (Kcl 40 Meq In 0.9 % Sodium Chl) 40 meq in 1,000 mls @ 125 mls/hr IVCONT .Q8H [facility] Last Admin: 10/27/24 04:26 Dose: 125 mls/hr Documented By: BRYSON Insulin Human Lispro (Insulin Lispro 100 Unit/Ml 3 Ml Vial) 0 unit SUBCUT Q6H [facility]; Protocol Last Admin: 10/27/24 06:12 Dose: 4 unit Documented By: BRYSON Melatonin (Melatonin 3 Mg Tablet) 6 mg PO BEDTIME PRN PRN Reason: Insomnia Morphine Sulfate (Morphine Sulfate 2 Mg/Ml Cartridge) 6 mg IVPUSH Q3H PRN; Protocol PRN Reason: Pain, Severe (Pain Scale 7-10) Last Admin: 10/27/24 03:35 Dose: 6 mg Documented By: BRYSON Oxycodone HCl (Oxycodone Hcl Immed Release 5 Mg Tablet) 5 mg PO Q8H PRN PRN Reason: Pain, Moderate(Pain Scale 4-6) Last Admin: 10/26/24 17:13 Dose: 5 mg Documented By: NASRIN Potassium Chloride (Potassium Chloride Er 20 Meq Tab.Er.Prt) 40 meq PO TID [facility] Last Admin: 10/26/24 23:45 Dose: Not Given Documented By: BRYSON Non-Admin Reason: NPO Sodium Chloride (0.9 % Sodium Chloride Flush 3 Ml Syringe) 3 ml IVFLUSH QSHIFT [facility] Last Admin: 10/26/24 22:52 Dose: 3 ml Documented By: BRYSON Tamsulosin HCl (Tamsulosin Hcl 0.4 Mg Capsule) 0.4 mg PO BEDTIME [facility] Last Admin: 10/26/24 20:27 Dose: Not Given Documented By: BRYSON Non-Admin Reason: NPO <Callie Boyd PA-C - Last Filed: 10/27/24 07:59> Labs CBC & Chem 7: 10/27/24 06:33 10/27/24 06:33 <Callie Boyd PA-C - Last Filed: 10/27/24 07:59> Labs: Laboratory Results - last 24 hr 10/26/24 10/26/24 10/26/24 09: 11:58 16:49 MCV 81.3 MCH 27.2 MCHC 33.5 RDW 13.3 Plt Count 363 MPV 9.5 Immature Gran % (Auto) Neut % (Auto) Lymph % (Auto) [place] % (Auto) Eos % (Auto) Baso % (Auto) Lymph # (Auto) [place] # (Auto) Eos # (Auto) Baso # (Auto) Abs Immat Gran (auto) Absolute Neuts (auto) Absolute Nucleated RBC 0.000 Nucleated RBC % (auto) 0.0 Anion Gap 13 Estim Creat Clear Calc 155.5 Estimated GFR > 60 POC Glucose 248 H Random Glucose 235 H Calcium 7.6 L Magnesium B-Natriuretic Peptide 27 10/26/24 10/26/24 10/26/24 18:05 19:55 23:34 MCV MCH MCHC RDW Plt Count MPV Immature Gran % (Auto) Neut % (Auto) Lymph % (Auto) [place] % (Auto) Eos % (Auto) Baso % (Auto) Lymph # (Auto) [place] # (Auto) Eos # (Auto) Baso # (Auto) Abs Immat Gran (auto) Absolute Neuts (auto) Absolute Nucleated RBC Nucleated RBC % (auto) Anion Gap Estim Creat Clear Calc Estimated GFR POC Glucose 238 H 218 H 196 H Random Glucose Calcium Magnesium B-Natriuretic Peptide 10/27/24 10/27/24 06:00 06:33 MCV 82.8 MCH 27.1 MCHC 32.8 RDW 13.2 Plt Count 381 MPV 9.7 Immature Gran % (Auto) Cancelled Neut % (Auto) Cancelled Lymph % (Auto) Cancelled [place] % (Auto) Cancelled Eos % (Auto) Cancelled Baso % (Auto) Cancelled Lymph # (Auto) Cancelled [place] # (Auto) Cancelled Eos # (Auto) Cancelled Baso # (Auto) Cancelled Abs Immat Gran (auto) Cancelled Absolute Neuts (auto) Cancelled Absolute Nucleated RBC 0.000 Nucleated RBC % (auto) 0.0 Anion Gap 14 Estim Creat Clear Calc 160.8 Estimated GFR > 60 POC Glucose 211 H Random Glucose 220 H Calcium 7.8 L Magnesium 2.4 B-Natriuretic Peptide <Callie Boyd PA-C - Last Filed: 10/27/24 07:59> Microbiology Microbiology Results: Microbiology 10/26/24 01:04 Blood Culture - Preliminary Blood - Venous No growth after 24 hours. 10/26/24 01:04 Blood Culture - Preliminary Blood - Venous No growth after 24 hours. 10/24/24 16:51 Blood Culture - Preliminary Blood - Venous No growth after 48 hours. 10/24/24 16:50 Blood Culture - Preliminary Blood - Venous No growth after 48 hours. <Callie Boyd PA-C - Last Filed: 10/27/24 07:59> Procedures Date of Service Date of Service: 10/27/24 <Callie Boyd PA-C - Last Filed: 10/27/24 07:59> 10/27/24 <Brian Baker MD - Last Filed: 10/27/24 08:04> Progress Note: A&P Assessment and plan (1) Opiate dependence: Status: Acute <Callie Boyd PA-C - Last Filed: 10/27/24 07:59> (2) Small bowel obstruction: Status: Acute <Callie Boyd PA-C - Last Filed: 10/27/24 07:59> (3) S/P exploratory laparotomy: Status: Acute <Callie Boyd PA-C - Last Filed: 10/27/24 07:59> Assessment and Plan: POD #2 s/p exploratory laparotomy, lysis of adhesions with transition point noted adjacent to a mesh repair. Improving overall, albiet slowly. He remains significantly distended, incision clean. HR improved. Electrolytes improved this morning. Cont clear liquids as tolerated. Cont OOB/ambulation and increase activity and IS use. Pain control will be difficult in view of opioid abuse. Dc maier. Hospitalists following and appreciate input- echo ordered for today. <Callie Boyd PA-C - Last Filed: 10/27/24 07:59> POD #2 s/p exploratory laparotomy, lysis of adhesions with transition point noted adjacent to a mesh repair. Improving overall, albiet slowly. He remains significantly distended, incision clean. HR improved. Electrolytes improved this morning. Cont clear liquids as tolerated. Cont OOB/ambulation and increase activity and IS use. Pain control will be difficult in view of opioid abuse. Dc maier. Hospitalists following and appreciate input- echo ordered for today. Overall patient appears improved this morning and abdomen is marginally softer. He continues to have liquid stools with some flatus. Wounds are clean and intact. Agree with the above assessment and plan. DC Maier catheter. <Brian Baker MD - Last Filed: 10/27/24 08:04> Time Spent With Patient Time: Total time managing care of this patient today ____ minutes. <Callie Boyd PA-C - Last Filed: 10/27/24 07:59> Quality Stroke Does the patient have a stroke diagnosis?: No <Callie Boyd PA-C - Last Filed: 10/27/24 07:59> VTE Prior VTE?: No <Callie Boyd PA-C - Last Filed: 10/27/24 07:59> VTE Risk Level:: Surgical - moderate <Callie Boyd PA-C - Last Filed: 10/27/24 07:59> VTE Device Contraindication: N/A - Device Ordered <Callie Boyd PA-C - Last Filed: 10/27/24 07:59> VTE Drug Contraindication: Treatment Not Indicated <Callie Boyd PA-C - Last Filed: 10/27/24 07:59>
[2024-10-27] MEDS: 0.9 % Sodium Chloride Flush 3 ML SYRINGE IVFLUSH ×3 (08:10→19:43)
[2024-10-27 08:55] LABS: Atypical Lymph Absolute Manual 0.2 x10*3/uL; Atypical Lymphs Percent Manual 1 % (0-6); Band Neutrophils Percent 14 % (3-5); Lymphocytes Absolute Manual 2.0 X10*3/uL (1.2-4.9); Lymphocytes Percent Manual 13 % (20-40); Metamyelocytes Absolute 0.3 X10*3/uL; Metamyelocytes Percent 2 %; Monocytes Absolute Manual 1.4 X10*3/uL (0.1-1.2); Monocytes Percent Manual 9 % (2-11); Myelocytes Absolute 0.2 X10*/uL; Myelocytes Percent 1 %; Neutrophils Absolute Manual 11.3 X10*3/uL (2.0-8.3); Neutrophils Percent Manual 60 % (45-73)
[2024-10-27 08:56] LABS: Burr Cells 1+ (0-2) /OIF; Dohle Bodies PRESENT; Large Platelet PRESENT; RBC Morphology NOTED; Toxic Granulation PRESENT; Toxic Vacuolation PRESENT
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
--- NOTE | 2024-10-27 10:26 | MHC.CM.PN ---
Patient is not yet medically cleared for dc (Abdominal pain & distention, Diarrhea); home is the goal and CM will continue to follow.
[2024-10-27] MEDS: oxyCODONE HCl Immed Release 5 MG TABLET PO ×2 (11:22→19:42)
[2024-10-27 11:36] LABS: Glucose, Whole Blood 214 mg/dL (60-115)
--- NOTE | 2024-10-27 11:54 | PC.NURSE ---
Removal of Maier done, there is no active order for the insertion of the maier but needed documentation as need to monitor his output
[2024-10-27] MEDS: Potassium Chloride ER 20 MEQ TAB.ER.PRT 40 MEQ PO ×2 (14:35→19:42)
--- NOTE | 2024-10-27 15:33 | MHC.RECOVRN ---
Attempted to meet with pt in 446 after receiving addiction consult to discuss OUD and possible recovery supports as well as MOUD. Pt not interested in recovery supports or MOUD. Pt declined outpatient [facility] appointment as well as to speak to the provider in regards to MOUD. No questions or concerns offered at this time.
[2024-10-27 17:23] LABS: Glucose, Whole Blood 232 mg/dL (60-115)
[2024-10-27 20:13] LABS: Glucose, Whole Blood 204 mg/dL (60-115)
[2024-10-28] VITALS (12 sets, daily range): BP systolic 137–179; BP diastolic 64–96; PULSE 79–108; RESP 17–19; TEMP 36–37.2; O2SAT 92–97
[2024-10-28 06:54] LABS: Hematocrit 43.6 % (42.0-52.0); Hemoglobin 14.2 g/dl (14.0-18.0); Mean Corpuscular HGB Conc 32.6 g/dl (31.0-36.0); Mean Corpuscular Hemoglobin 27.3 pg (27.0-33.0); Mean Corpuscular Volume 83.7 fL (80.0-98.0); NRBC Abs Auto 0.000 X10*3/uL (0.0-0.012); NRBC Pct Auto 0.0 /100WBC (0.0-0.2); Platelet Count 406 X10*3/uL (160-400); Red Blood Count 5.21 X10*6/uL (4.60-5.80); White Blood Count 15.9 X10*3/uL (4.8-10.8)
[2024-10-28 07:31] LABS: Glucose, Whole Blood 221 mg/dL (60-115)
[2024-10-28 07:50] LABS: Anion Gap 14 (12-20); Blood Urea Nitrogen 9 mg/dL (9-16); Calcium 7.6 mg/dL (8.4-10.2); Carbon Dioxide 24 mmol/L (22-29); Chloride 102 mmol/L (96-108); Creatinine Clr Calc Pharmacy 175.7; Estimated Glomerular Filt Rate > 60; Potassium 4.0 mmol/L (3.3-5.1); Sodium 136 mmol/L (135-145)
[2024-10-28] MEDS: 0.9 % Sodium Chloride Flush 3 ML SYRINGE IVFLUSH ×2 (07:58→15:18)
--- NOTE | 2024-10-28 08:13 | P.PNGS_ITS ---
Subjective Subjective Date of Service: 10/28/24 Interval history: Reports severe heartburn and nausea/belching. States he vomited once just prior to eval. Reports passing continuous flatus and had a few liquid BMs yesterday. Has only been OOB to bathroom. Physical Exam 2 Vital Signs: Vital Signs: Last Vital Signs Temp 98 F 10/28/24 07:08 Pulse 100 10/28/24 07:08 Resp 17 10/28/24 07:08 BP 150/78 H 10/28/24 07:08 Pulse Ox 93 10/28/24 07:08 O2 Del Method Room Air 10/28/24 07:08 O2 Flow Rate 2 10/27/24 12:53 BMI result Body Mass Index 35.0 Const: General: comfortable, no acute distress and alert O rientation/consciousness: patient oriented x3 Resp: Effort & Inspection: normal respiratory effort, able to speak in complete sentences and not tachypneic GI: Inspection: Yes distended and Yes incision (clean) Palpation (GI): Soft to palpation, Tenderness to palpation present (GI) (mild incisional) and no guarding Percussion: Yes tympanic to percussion Skin: General skin exam: no rashes or lesions noted Neuro: General: patient oriented x3 and moves all extremities Objective Data Active Medications Amlodipine Besylate (Amlodipine Besylate 5 Mg Tablet) 5 mg PO DAILY [facility]; Protocol Last Admin: 10/28/24 07:55 Dose: 5 mg Documented By: NASRIN Calcium Carbonate (Calcium Carbonate 750 Mg Tab.Chew) 750 mg PO Q4H PRN PRN Reason: Heartburn Last Admin: 10/27/24 21:15 Dose: 750 mg Documented By: JILLIAN Dextrose (Dextrose 50 % 25 Gm/50 Ml Syringe) 25 gm IVPUSH Q15M PRN; Protocol PRN Reason: per Hypoglycemia Standing Ord. Dextrose (Dextrose 50 % 25 Gm/50 Ml Syringe) 25 gm IVPUSH Q15M PRN; Protocol PRN Reason: per Hypoglycemia Standing Ord. Diazepam (Diazepam 10 Mg/2 Ml Cartridge) 5 mg IVPUSH Q4H PRN PRN Reason: Opiate Withdrawal Last Admin: 10/26/24 05:58 Dose: 5 mg Documented By: CARLEE Glucose (Glucose Gel 15 Gm Gel..Gram.) 15 gm PO Q15M PRN; Protocol PRN Reason: per Hypoglycemia Standing Ord. Piperacillin Sod/Tazobactam (Sod 3.375 gm/ Sodium Chloride) 50 mls @ 100 mls/hr IV Q6H [facility] Last Infusion: 10/28/24 05:44 Dose: Infused Documented By: JILLIAN Acetaminophen ([facility]) 1,000 mg in 100 mls @ 400 mls/hr IV Q6H [facility] Last Admin: 10/28/24 07:56 Dose: 400 mls/hr Documented By: NASRIN Insulin Human Lispro (Insulin Lispro 100 Unit/Ml 3 Ml Vial) 0 unit SUBCUT QIDACHS [facility]; Protocol Last Admin: 10/28/24 07:55 Dose: 4 unit Documented By: NASRIN Ketorolac Tromethamine (Ketorolac Tromethamine 15 Mg/Ml Vial) 15 mg IVPUSH Q6H PRN PRN Reason: Pain, Mild 1-3,fever,headache Last Admin: 10/28/24 07:55 Dose: 15 mg Documented By: NASRIN Melatonin (Melatonin 3 Mg Tablet) 6 mg PO BEDTIME PRN PRN Reason: Insomnia Morphine Sulfate (Morphine Sulfate 2 Mg/Ml Cartridge) 6 mg IVPUSH Q3H PRN; Protocol PRN Reason: Pain, Severe (Pain Scale 7-10) Last Admin: 10/28/24 02:57 Dose: 6 mg Documented By: JILLIAN Oxycodone HCl (Oxycodone Hcl Immed Release 5 Mg Tablet) 5 mg PO Q8H PRN PRN Reason: Pain, Moderate(Pain Scale 4-6) Last Admin: 10/27/24 19:42 Dose: 5 mg Documented By: JILLIAN Sodium Chloride (0.9 % Sodium Chloride Flush 3 Ml Syringe) 3 ml IVFLUSH QSHIFT [facility] Last Admin: 10/28/24 07:58 Dose: 3 ml Documented By: NASRIN Tamsulosin HCl (Tamsulosin Hcl 0.4 Mg Capsule) 0.4 mg PO BEDTIME [facility] Last Admin: 10/27/24 19:42 Dose: 0.4 mg Documented By: JILLIAN Labs 10/28/24 06:19 10/28/24 06:19 Labs: Laboratory Results - last 24 hr 10/27/24 10/27/24 10/27/24 06:33 11:26 17:19 MCV MCH MCHC RDW Plt Count MPV Absolute Nucleated RBC Nucleated RBC % (auto) Neutrophils % (Manual) 60 Band Neutrophils % 14 H Lymphocytes % (Manual) 13 L Atypical Lymphs % (Man) 1 Monocytes % (Manual) 9 Metamyelocytes % 2 Myelocytes % 1 Abs Neuts (Manual) 11.3 H Lymphocytes # (Manual) 2.0 Atyp Lymphs # (Manual) 0.2 Monocytes # (Manual) 1.4 H Metamyelocytes # 0.3 Myelocytes # 0.2 Toxic Granulation PRESENT Toxic Vacuolation PRESENT Dohle Bodies PRESENT Platelet Estimate NORMAL Large Platelets PRESENT Giant Platelets PRESENT Plt Morphology Comment NOTED RBC Morphology NOTED [place] Cells 1+ (0-2) Anion Gap Estim Creat Clear Calc Estimated GFR POC Glucose 214 H 232 H Random Glucose Calcium 10/27/24 10/28/24 10/28/24 20:01 06:19 07:28 MCV 83.7 MCH 27.3 MCHC 32.6 RDW 13.2 Plt Count 406 H MPV 9.6 Absolute Nucleated RBC 0.000 Nucleated RBC % (auto) 0.0 Neutrophils % (Manual) Band Neutrophils % Lymphocytes % (Manual) Atypical Lymphs % (Man) Monocytes % (Manual) Metamyelocytes % Myelocytes % Abs Neuts (Manual) Lymphocytes # (Manual) Atyp Lymphs # (Manual) Monocytes # (Manual) Metamyelocytes # Myelocytes # Toxic Granulation Toxic Vacuolation Dohle Bodies Platelet Estimate Large Platelets Giant Platelets Plt Morphology Comment RBC Morphology Lopez Cells Anion Gap 14 Estim Creat Clear Calc 175.7 Estimated GFR > 60 POC Glucose 204 H 221 H Random Glucose 211 H Calcium 7.6 L Microbiology Microbiology Results: Microbiology 10/26/24 01:04 Blood Culture - Preliminary Blood - Venous No growth after 48 hours. 10/26/24 01:04 Blood Culture - Preliminary Blood - Venous No growth after 48 hours. 10/26/24 Unknown Urine Culture - Final Urine Catheterized - Oliver Catheter No growth. Procedures Date of Service Date of Service: 10/28/24 Progress Note: A&P Assessment and plan (1) Small bowel obstruction: Status: Acute (2) S/P exploratory laparotomy: Status: Acute Plan POD #2 s/p exploratory laparotomy, lysis of adhesions with transition point noted adjacent to a mesh repair. Complaining of heartburn/nausea this morning. Encouraged just sips of liquids for now until symptoms and abd distenton improves. May take a while for all small bowel function to return given degree of distention. He was strongly encouraged OOB/ambulation and increasing activity to promote GI function. Discussed with nursing to use ofirmev and ketorolac for pain control with narcotics as needed to help with return of GI function. Electrolytes remain improved this morning. Hospitalists following. Time Spent With Patient Time: Total time managing care of this patient today ____ minutes. Quality Stroke Does the patient have a stroke diagnosis?: No VTE Prior VTE?: No VTE Risk Level:: Surgical - moderate VTE Device Contraindication: N/A - Device Ordered VTE Drug Contraindication: Treatment Not Indicated
[2024-10-28 11:28] LABS: Glucose, Whole Blood 188 mg/dL (60-115)
[2024-10-28] MEDS: oxyCODONE HCl Immed Release 5 MG TABLET PO (12:20)
[2024-10-28 16:59] LABS: Glucose, Whole Blood 209 mg/dL (60-115)
--- NOTE | 2024-10-28 17:24 | PC.NURSE ---
Patient was educated on the importance of getting out of bed and ambulating.Patient was able to tolerate a lap around the unit and was not feeling any pain,but his legs felt weak.Up in a recliner to see if it helps his back pain patient was able to get rest.
[2024-10-28 20:33] LABS: Glucose, Whole Blood 214 mg/dL (60-115)
[2024-10-29] VITALS (8 sets, daily range): BP systolic 139–156; BP diastolic 60–85; PULSE 85–102; RESP 17–20; TEMP 36.2–36.8; O2SAT 92–94
[2024-10-29] MEDS: oxyCODONE HCl Immed Release 5 MG TABLET PO ×2 (00:25→17:00)
[2024-10-29] MEDS: 0.9 % Sodium Chloride Flush 3 ML SYRINGE IVFLUSH ×4 (04:14→19:51)
[2024-10-29 07:10] LABS: Glucose, Whole Blood 215 mg/dL (60-115)
[2024-10-29 07:13] LABS: Anion Gap 13 (12-20); Blood Urea Nitrogen 6 mg/dL (9-16); Calcium 7.5 mg/dL (8.4-10.2); Carbon Dioxide 27 mmol/L (22-29); Chloride 99 mmol/L (96-108); Creatinine Clr Calc Pharmacy 193.6; Estimated Glomerular Filt Rate > 60; Potassium 3.4 mmol/L (3.3-5.1); Sodium 136 mmol/L (135-145)
--- NOTE | 2024-10-29 08:54 | P.PNGS_ITS ---
Subjective Subjective Date of Service: 10/29/24 Interval history: Feels somewhat improved, pain better overall but increases with getting OOB/movement. Tolerating clear liquids without nausea or vomiting but continues belching. Passing flatus and having loose stools. Was OOB and ambulated halls yesterday. Physical Exam 2 Vital Signs: Vital Signs: Last Vital Signs Temp 97.1 F 10/29/24 07:34 Pulse 94 10/29/24 07:34 Resp 20 10/29/24 07:34 BP 139/73 10/29/24 07:34 Pulse Ox 92 10/29/24 07:34 O2 Del Method Room Air 10/29/24 07:34 O2 Flow Rate 2 10/27/24 12:53 BMI result Body Mass Index 35.0 Const: General: comfortable, no acute distress and alert O rientation/consciousness: patient oriented x3 Resp: Effort & Inspection: normal respiratory effort, able to speak in complete sentences and not tachypneic GI: Other: remains significantly distended but soft incision clean tympanitic Skin: General skin exam: no rashes or lesions noted and no jaundice Neuro: General: patient oriented x3 and moves all extremities Objective Data Active Medications Amlodipine Besylate (Amlodipine Besylate 5 Mg Tablet) 5 mg PO DAILY [facility]; Protocol Last Admin: 10/29/24 08:12 Dose: 5 mg Documented By: FERNANDA Calcium Carbonate (Calcium Carbonate 750 Mg Tab.Chew) 750 mg PO Q4H PRN PRN Reason: Heartburn Last Admin: 10/27/24 21:15 Dose: 750 mg Documented By: JILLIAN Dextrose (Dextrose 50 % 25 Gm/50 Ml Syringe) 25 gm IVPUSH Q15M PRN; Protocol PRN Reason: per Hypoglycemia Standing Ord. Dextrose (Dextrose 50 % 25 Gm/50 Ml Syringe) 25 gm IVPUSH Q15M PRN; Protocol PRN Reason: per Hypoglycemia Standing Ord. Diazepam (Diazepam 10 Mg/2 Ml Cartridge) 5 mg IVPUSH Q4H PRN PRN Reason: Opiate Withdrawal Last Admin: 10/26/24 05:58 Dose: 5 mg Documented By: CARLEE Glucose (Glucose Gel 15 Gm Gel..Gram.) 15 gm PO Q15M PRN; Protocol PRN Reason: per Hypoglycemia Standing Ord. Piperacillin Sod/Tazobactam (Sod 3.375 gm/ Sodium Chloride) 50 mls @ 100 mls/hr IV Q6H [facility] Last Infusion: 10/29/24 06:15 Dose: Infused Documented By: TING Acetaminophen (Ofirmev) 1,000 mg in 100 mls @ 400 mls/hr IV Q6H [facility] Insulin Human Lispro (Insulin Lispro 100 Unit/Ml 3 Ml Vial) 0 unit SUBCUT QIDACHS [facility]; Protocol Last Admin: 10/29/24 08:38 Dose: 4 unit Documented By: FERNANDA Ketorolac Tromethamine (Ketorolac Tromethamine 15 Mg/Ml Vial) 15 mg IVPUSH Q6H PRN PRN Reason: Pain, Mild 1-3,fever,headache Last Admin: 10/28/24 15:17 Dose: 15 mg Documented By: MALDONLonny Melatonin (Melatonin 3 Mg Tablet) 6 mg PO BEDTIME PRN PRN Reason: Insomnia Morphine Sulfate (Morphine Sulfate 2 Mg/Ml Cartridge) 6 mg IVPUSH Q3H PRN; Protocol PRN Reason: Pain, Severe (Pain Scale 7-10) Last Admin: 10/29/24 06:17 Dose: 6 mg Documented By: TING Oxycodone HCl (Oxycodone Hcl Immed Release 5 Mg Tablet) 5 mg PO Q8H PRN PRN Reason: Pain, Moderate(Pain Scale 4-6) Last Admin: 10/29/24 00:25 Dose: 5 mg Documented By: TING Sodium Chloride (0.9 % Sodium Chloride Flush 3 Ml Syringe) [facility] Last Admin: 10/29/24 08:12 Dose: 3 ml Documented By: FERNANDA Tamsulosin HCl (Tamsulosin Hcl 0.4 Mg Capsule) 0.4 mg PO BEDTIME [facility] Last Admin: 10/28/24 20:33 Dose: 0.4 mg Documented By: TING Labs 10/28/24 06:19 10/29/24 06:16 Labs: Laboratory Results - last 24 hr 10/28/24 10/28/24 10/28/24 11:22 16:55 20:15 Hold Purple Top Anion Gap Estim Creat Clear Calc Estimated GFR POC Glucose 188 H 209 H 214 H Random Glucose Calcium 10/29/24 10/29/24 06:16 07:01 Hold Purple Top SEE NOTE Anion Gap 13 Estim Creat Clear Calc 193.6 Estimated GFR > 60 POC Glucose 215 H Random Glucose 210 H Calcium 7.5 L Procedures Date of Service Date of Service: 10/29/24 Progress Note: A&P Assessment and plan (1) Small bowel obstruction: Status: Acute (2) S/P exploratory laparotomy: Status: Acute Plan POD #4 s/p exploratory laparotomy, lysis of adhesions with transition point noted adjacent to a mesh repair. Continues to slowly improve. VSS. Abd remains distended but soft, incision clean, appropriate post op tenderness. Cont clear liquids for now until distention improves. He was strongly encouraged OOB/ambulation and increasing activity to promote GI function. Continue to limit narcotics if possible. Repeat labs in AM. patient comfortable with plan. Time Spent With Patient Time: Total time managing care of this patient today ____ minutes. Quality Stroke Does the patient have a stroke diagnosis?: No VTE Prior VTE?: No VTE Risk Level:: Surgical - moderate VTE Device Contraindication: N/A - Device Ordered VTE Drug Contraindication: Treatment Not Indicated
[2024-10-29 11:35] LABS: Glucose, Whole Blood 210 mg/dL (60-115)
--- NOTE | 2024-10-29 11:57 | MHC.CM.PN ---
Patient is not yet medically cleared for dc (pain with movement/tolerating clear liquids); home is the goal and CM will continue to follow.
[2024-10-29 16:36] LABS: Glucose, Whole Blood 207 mg/dL (60-115)
[2024-10-29 20:07] LABS: Glucose, Whole Blood 190 mg/dL (60-115)
[2024-10-30] VITALS (8 sets, daily range): BP systolic 148–196; BP diastolic 77–89; PULSE 92–102; RESP 18–20; TEMP 36.1–36.7; O2SAT 92–95
[2024-10-30] MEDS: oxyCODONE HCl Immed Release 5 MG TABLET PO ×3 (05:31→22:17)
[2024-10-30 05:41] LABS: Hematocrit 43.4 % (42.0-52.0); Hemoglobin 13.9 g/dl (14.0-18.0); Mean Corpuscular HGB Conc 32.0 g/dl (31.0-36.0); Mean Corpuscular Hemoglobin 26.7 pg (27.0-33.0); Mean Corpuscular Volume 83.5 fL (80.0-98.0); NRBC Abs Auto 0.000 X10*3/uL (0.0-0.012); NRBC Pct Auto 0.0 /100WBC (0.0-0.2); Platelet Count 367 X10*3/uL (160-400); Red Blood Count 5.20 X10*6/uL (4.60-5.80)
[2024-10-30 05:53] LABS: WBC ABN SCTR FOR CBC 1
[2024-10-30 06:15] LABS: Anion Gap 12 (12-20); Blood Urea Nitrogen 5 mg/dL (9-16); Calcium 7.6 mg/dL (8.4-10.2); Carbon Dioxide 30 mmol/L (22-29); Chloride 96 mmol/L (96-108); Creatinine Clr Calc Pharmacy 182.5; Estimated Glomerular Filt Rate > 60; Potassium 2.9 mmol/L (3.3-5.1); Sodium 135 mmol/L (135-145)
[2024-10-30] MEDS: Potassium Chloride Packet 20 MEQ PACKET 40 MEQ PO (06:40)
[2024-10-30 06:56] LABS: Atypical Lymphs Percent Manual 1 % (0-6); Band Neutrophils Percent 4 % (3-5); Eosinophils Percent Manual 5 % (0-4); Lymphocytes Percent Manual 11 % (20-40); Metamyelocytes Percent 2 %; Monocytes Percent Manual 6 % (2-11); Neutrophils Percent Manual 71 % (45-73)
[2024-10-30 06:57] LABS: RBC Morphology NORMAL
[2024-10-30 07:02] LABS: Atypical Lymph Absolute Manual 0.2 x10*3/uL; Eosinophils Absolute Manual 0.8 X10*3/uL (0.0-0.4); Lymphocytes Absolute Manual 1.7 X10*3/uL (1.2-4.9); Metamyelocytes Absolute 0.3 X10*3/uL; Monocytes Absolute Manual 0.9 X10*3/uL (0.1-1.2); Neutrophils Absolute Manual 11.8 X10*3/uL (2.0-8.3); White Blood Count 15.7 X10*3/uL (4.8-10.8)
--- NOTE | 2024-10-30 07:19 | P.PNGS_ITS ---
Subjective Subjective Date of Service: 10/30/24 Interval history: Feels weak and tired this morning. Reports everyone keeps waking him up during the night. Continues to pass flatus, have liquid BMs. Incisional pain is slowly improving. Reports he is ambulating in halls. Feels hungry. Physical Exam 2 Vital Signs: Vital Signs: Last Vital Signs Temp 97.0 F 10/30/24 07:14 Pulse 97 10/30/24 07:14 Resp 18 10/30/24 07:14 BP 180/87 H 10/30/24 07:14 Pulse Ox 92 10/30/24 07:14 O2 Del Method Room Air 10/30/24 07:14 O2 Flow Rate 2 10/27/24 12:53 BMI result Body Mass Index 35.0 Const: General: comfortable, no acute distress and alert O rientation/consciousness: patient oriented x3 Resp: Effort & Inspection: normal respiratory effort, able to speak in complete sentences and not labored GI: Other: abd more soft this morning, remains distended but improved incision clean without erythema or drainage mild incisional tenderness Percussion: Yes tympanic to percussion Skin: General skin exam: no rashes or lesions noted Neuro: General: patient oriented x3 and moves all extremities Objective Data Active Medications Amlodipine Besylate (Amlodipine Besylate 5 Mg Tablet) 5 mg PO DAILY [facility]; Protocol Last Admin: 10/29/24 08:12 Dose: 5 mg Documented By: FERNANDA Calcium Carbonate (Calcium Carbonate 750 Mg Tab.Chew) 750 mg PO Q4H PRN PRN Reason: Heartburn Last Admin: 10/27/24 21:15 Dose: 750 mg Documented By: JILLIAN Dextrose (Dextrose 50 % 25 Gm/50 Ml Syringe) 25 gm IVPUSH Q15M PRN; Protocol PRN Reason: per Hypoglycemia Standing Ord. Dextrose (Dextrose 50 % 25 Gm/50 Ml Syringe) 25 gm IVPUSH Q15M PRN; Protocol PRN Reason: per Hypoglycemia Standing Ord. Diazepam (Diazepam 10 Mg/2 Ml Cartridge) 5 mg IVPUSH Q4H PRN PRN Reason: Opiate Withdrawal Last Admin: 10/26/24 05:58 Dose: 5 mg Documented By: CARLEE Glucose (Glucose Gel 15 Gm Gel..Gram.) 15 gm PO Q15M PRN; Protocol PRN Reason: per Hypoglycemia Standing Ord. Piperacillin Sod/Tazobactam (Sod 3.375 gm/ Sodium Chloride) 50 mls @ 100 mls/hr IV Q6H [facility] Last Infusion: 10/30/24 06:25 Dose: 100 mls/hr Documented By: TING Acetaminophen (Ofirmev) 1,000 mg in 100 mls @ 400 mls/hr IV Q6H [facility] Last Infusion: 10/30/24 04:19 Dose: Infused Documented By: TING Insulin Human Lispro (Insulin Lispro 100 Unit/Ml 3 Ml Vial) 0 unit SUBCUT QIDACHS [facility]; Protocol Last Admin: 10/29/24 21:01 Dose: 2 unit Documented By: TING Ketorolac Tromethamine (Ketorolac Tromethamine 15 Mg/Ml Vial) 15 mg IVPUSH Q6H PRN PRN Reason: Pain, Mild 1-3,fever,headache Last Admin: 10/28/24 15:17 Dose: 15 mg Documented By: MALDONLonny Melatonin (Melatonin 3 Mg Tablet) 6 mg PO BEDTIME PRN PRN Reason: Insomnia Morphine Sulfate (Morphine Sulfate 2 Mg/Ml Cartridge) 6 mg IVPUSH Q3H PRN; Protocol PRN Reason: Pain, Severe (Pain Scale 7-10) Last Admin: 10/30/24 00:02 Dose: 6 mg Documented By: TING Oxycodone HCl (Oxycodone Hcl Immed Release 5 Mg Tablet) 5 mg PO Q8H PRN PRN Reason: Pain, Moderate(Pain Scale 4-6) Last Admin: 10/30/24 05:31 Dose: 5 mg Documented By: TING Sodium Chloride (0.9 % Sodium Chloride Flush 3 Ml Syringe) 3 ml IVFLUSH QSHIFT [facility] Last Admin: 10/29/24 19:51 Dose: 3 ml Documented By: TING Tamsulosin HCl (Tamsulosin Hcl 0.4 Mg Capsule) 0.4 mg PO BEDTIME [facility] Last Admin: 10/29/24 19:50 Dose: 0.4 mg Documented By: TING Labs 10/30/24 05:20 10/30/24 05:20 Labs: Laboratory Results - last 24 hr 10/29/24 10/29/24 10/29/24 11:28 16:33 19:56 MCV MCH MCHC RDW Plt Count MPV Immature Gran % (Auto) Neut % (Auto) Lymph % (Auto) [place] % (Auto) Eos % (Auto) Baso % (Auto) Lymph # (Auto) [place] # (Auto) Eos # (Auto) Baso # (Auto) Abs Immat Gran (auto) Absolute Neuts (auto) Absolute Nucleated RBC Nucleated RBC % (auto) Neutrophils % (Manual) Band Neutrophils % Lymphocytes % (Manual) Atypical Lymphs % (Man) Monocytes % (Manual) Eosinophils % (Manual) Metamyelocytes % Abs Neuts (Manual) Lymphocytes # (Manual) Atyp Lymphs # (Manual) Monocytes # (Manual) Eosinophils # (Manual) Metamyelocytes # Platelet Estimate Plt Morphology Comment RBC Morphology Anion Gap Estim Creat Clear Calc Estimated GFR POC Glucose 210 H 207 H 190 H Fasting Glucose Calcium 10/30/24 05:20 MCV 83.5 MCH 26.7 L MCHC 32.0 RDW 12.9 Plt Count 367 MPV 9.3 L Immature Gran % (Auto) Cancelled Neut % (Auto) Cancelled Lymph % (Auto) Cancelled [place] % (Auto) Cancelled Eos % (Auto) Cancelled Baso % (Auto) Cancelled Lymph # (Auto) Cancelled [place] # (Auto) Cancelled Eos # (Auto) Cancelled Baso # (Auto) Cancelled Abs Immat Gran (auto) Cancelled Absolute Neuts (auto) Cancelled Absolute Nucleated RBC 0.000 Nucleated RBC % (auto) 0.0 Neutrophils % (Manual) 71 Band Neutrophils % 4 Lymphocytes % (Manual) 11 L Atypical Lymphs % (Man) 1 Monocytes % (Manual) 6 Eosinophils % (Manual) 5 H Metamyelocytes % 2 Abs Neuts (Manual) 11.8 H Lymphocytes # (Manual) 1.7 Atyp Lymphs # (Manual) 0.2 Monocytes # (Manual) 0.9 Eosinophils # (Manual) 0.8 H Metamyelocytes # 0.3 Platelet Estimate NORMAL Plt Morphology Comment NORMAL RBC Morphology NORMAL Anion Gap 12 Estim Creat Clear Calc 182.5 Estimated GFR > 60 POC Glucose Fasting Glucose 226 H Calcium 7.6 L Microbiology Microbiology Results: Microbiology 10/24/24 16:51 Blood Culture - Final Blood - Venous No growth after 5 days. 10/24/24 16:50 Blood Culture - Final Blood - Venous No growth after 5 days. Procedures Date of Service Date of Service: 10/30/24 Progress Note: A&P Assessment and plan (1) S/P exploratory laparotomy: Status: Acute (2) Small bowel obstruction: Status: Acute Plan Continues with good GI function, abd more soft and slightly less distended this am. Will advance to full liquids and then further as tolerated. Cont current regimen for pain control. Replace lytes. Cont to encourage OOB/ambulation and IS use. WBC hovering around 15- no overt signs or symptoms of infection. Will cont to monitor. Time Spent With Patient Time: Total time managing care of this patient today ____ minutes. Quality Stroke Does the patient have a stroke diagnosis?: No VTE Prior VTE?: No VTE Risk Level:: Surgical - moderate VTE Device Contraindication: N/A - Device Ordered VTE Drug Contraindication: Treatment Not Indicated
[2024-10-30 07:32] LABS: Glucose, Whole Blood 244 mg/dL (60-115)
[2024-10-30] MEDS: 0.9 % Sodium Chloride Flush 3 ML SYRINGE IVFLUSH ×2 (08:20→16:24)
--- NOTE | 2024-10-30 09:32 | P.PNADD_ITS ---
Subjective Subjective Date of Service: 10/30/24 Reason For Visit: SBO Interim History: Patient seen in follow up for OUD--specifically purchasing non prescribed percocet on the street. Patient awake, alert, minimally engaged in conversation. Reporting he does not plan to take percocet or any pain medicine once he leaves the hospital T/w asked about concern for dependence, which patient dismissed. Discussed risk of overdose with purchasing pills due to possibility of purchasing pressed pills. Patient unaware of what fentanyl was, or pressed pills. Attempted to discuss concern for withdrawal and ongoing pain if patient stopped opiates as he plans to, however patient declined to discuss this. I don't want to talk about this, I am not taking them anymore when I leave here Patient then asked t/w to leave so he could use the restroom Review of Systems Constitutional: Reports as per HPI ( some pain and heartburn) Mental Status Exam Mental Status Exam Level of Consciousness: Awake and Alert Patient Behavior: Guarded and Avoidant Affect Description: Flat Speech Pattern: Clear Hallucinations: None Thought Process: Intact Thought Content: positive for Intact Judgement: Fair Diagnostics Vital Signs (24Hr): Vital Signs - 24 hr 10/29/24 11:39 10/29/24 16:00 10/29/24 19:45 Temperature 97.3 F 97.1 F 97.5 F Pulse Rate 85 95 92 Respiratory Rate 20 18 17 Blood Pressure 148/74 H 155/85 H 156/78 H Pulse Oximetry 93 94 92 Oxygen Delivery Method Room Air Room Air Room Air 10/30/24 00:12 10/30/24 04:00 10/30/24 07:14 Temperature 97.5 F 97.7 F 97.0 F Pulse Rate 94 100 97 Respiratory Rate 20 18 18 Blood Pressure 161/77 H 196/89 H 180/87 H Pulse Oximetry 93 95 92 Oxygen Delivery Method Room Air Room Air Room Air 10/30/24 08:17 Temperature Pulse Rate Respiratory Rate Blood Pressure 182/86 H Pulse Oximetry Oxygen Delivery Method BMI result Body Mass Index 35.0 Labs 10/30/24 05:20 10/30/24 05:20 Labs: Laboratory Results - last 48 hr 10/28/24 10/28/24 10/28/24 11:22 16:55 20:15 WBC RBC Hgb Hct MCV MCH MCHC RDW Plt Count MPV Immature Gran % (Auto) Neut % (Auto) Lymph % (Auto) [place] % (Auto) Eos % (Auto) Baso % (Auto) Lymph # (Auto) [place] # (Auto) Eos # (Auto) Baso # (Auto) Abs Immat Gran (auto) Absolute Neuts (auto) Absolute Nucleated RBC Nucleated RBC % (auto) Neutrophils % (Manual) Band Neutrophils % Lymphocytes % (Manual) Atypical Lymphs % (Man) Monocytes % (Manual) Eosinophils % (Manual) Metamyelocytes % Abs Neuts (Manual) Lymphocytes # (Manual) Atyp Lymphs # (Manual) Monocytes # (Manual) Eosinophils # (Manual) Metamyelocytes # Platelet Estimate Plt Morphology Comment RBC Morphology Hold Purple Top Sodium Potassium Chloride Carbon Dioxide Anion Gap BUN Creatinine Estim Creat Clear Calc Estimated GFR POC Glucose 188 H 209 H 214 H Random Glucose Fasting Glucose Calcium 10/29/24 10/29/24 10/29/24 06:16 07:01 11:28 WBC RBC Hgb Hct MCV MCH MCHC RDW Plt Count MPV Immature Gran % (Auto) Neut % (Auto) Lymph % (Auto) [place] % (Auto) Eos % (Auto) Baso % (Auto) Lymph # (Auto) [place] # (Auto) Eos # (Auto) Baso # (Auto) Abs Immat Gran (auto) Absolute Neuts (auto) Absolute Nucleated RBC Nucleated RBC % (auto) Neutrophils % (Manual) Band Neutrophils % Lymphocytes % (Manual) Atypical Lymphs % (Man) Monocytes % (Manual) Eosinophils % (Manual) Metamyelocytes % Abs Neuts (Manual) Lymphocytes # (Manual) Atyp Lymphs # (Manual) Monocytes # (Manual) Eosinophils # (Manual) Metamyelocytes # Platelet Estimate Plt Morphology Comment RBC Morphology Hold Purple Top SEE NOTE Sodium 136 Potassium 3.4 Chloride 99 Carbon Dioxide 27 Anion Gap 13 BUN 6 L Creatinine 0.49 L Estim Creat Clear Calc 193.6 Estimated GFR > 60 POC Glucose 215 H 210 H Random Glucose 210 H Fasting Glucose Calcium 7.5 L 10/29/24 10/29/24 10/30/24 16:33 19:56 05:20 WBC 15.7 H RBC 5.20 Hgb 13.9 L Hct 43.4 MCV 83.5 MCH 26.7 L MCHC 32.0 RDW 12.9 Plt Count 367 MPV 9.3 L Immature Gran % (Auto) Cancelled Neut % (Auto) Cancelled Lymph % (Auto) Cancelled [place] % (Auto) Cancelled Eos % (Auto) Cancelled Baso % (Auto) Cancelled Lymph # (Auto) Cancelled [place] # (Auto) Cancelled Eos # (Auto) Cancelled Baso # (Auto) Cancelled Abs Immat Gran (auto) Cancelled Absolute Neuts (auto) Cancelled Absolute Nucleated RBC 0.000 Nucleated RBC % (auto) 0.0 Neutrophils % (Manual) 71 Band Neutrophils % 4 Lymphocytes % (Manual) 11 L Atypical Lymphs % (Man) 1 Monocytes % (Manual) 6 Eosinophils % (Manual) 5 H Metamyelocytes % 2 Abs Neuts (Manual) 11.8 H Lymphocytes # (Manual) 1.7 Atyp Lymphs # (Manual) 0.2 Monocytes # (Manual) 0.9 Eosinophils # (Manual) 0.8 H Metamyelocytes # 0.3 Platelet Estimate NORMAL Plt Morphology Comment NORMAL RBC Morphology NORMAL Hold Purple Top Sodium 135 Potassium 2.9 L* Chloride 96 Carbon Dioxide 30 H Anion Gap 12 BUN 5 L Creatinine 0.52 Estim Creat Clear Calc 182.5 Estimated GFR > 60 POC Glucose 207 H 190 H Random Glucose Fasting Glucose 226 H Calcium 7.6 L 10/30/24 07:20 WBC RBC Hgb Hct MCV MCH MCHC RDW Plt Count MPV Immature Gran % (Auto) Neut % (Auto) Lymph % (Auto) [place] % (Auto) Eos % (Auto) Baso % (Auto) Lymph # (Auto) [place] # (Auto) Eos # (Auto) Baso # (Auto) Abs Immat Gran (auto) Absolute Neuts (auto) Absolute Nucleated RBC Nucleated RBC % (auto) Neutrophils % (Manual) Band Neutrophils % Lymphocytes % (Manual) Atypical Lymphs % (Man) Monocytes % (Manual) Eosinophils % (Manual) Metamyelocytes % Abs Neuts (Manual) Lymphocytes # (Manual) Atyp Lymphs # (Manual) Monocytes # (Manual) Eosinophils # (Manual) Metamyelocytes # Platelet Estimate Plt Morphology Comment RBC Morphology Hold Purple Top Sodium Potassium Chloride Carbon Dioxide Anion Gap BUN Creatinine Estim Creat Clear Calc Estimated GFR POC Glucose 244 H Random Glucose Fasting Glucose Calcium Imaging Radiology Impressions: ITS Impressions Abdomen/Pelvis CT 10/24/24 16:57 IMPRESSION: Proximal mid jejunal small bowel dynamic obstruction secondary to adhesions there is abrupt transition from fecal filled small bowel loops are normal caliber no. There is overlying abdominal wall mesh and postsurgical changes. No free air or free fluid seen. Moderate to significant prostate enlargement extending to base of bladder. The exam was performed on 10/24/2024 and available for reading on 10/27/2024. In between patient did have surgery for obstruction. Results were discussed with Dr. Brian Mason at 9:50 AM on 10/27/2024 Fleischner guidelines were followed. Electronically signed by: True Sales MD 10/27/2024 09:52 AM EDT RP Medications Medications Current Medications Amlodipine Besylate (Amlodipine Besylate 5 Mg Tablet) 5 mg PO DAILY [facility]; Protocol Last Admin: 10/30/24 08:17 Dose: 5 mg Calcium Carbonate (Calcium Carbonate 750 Mg Tab.Chew) 750 mg PO Q4H PRN PRN Reason: Heartburn Last Admin: 10/27/24 21:15 Dose: 750 mg Dextrose (Dextrose 50 % 25 Gm/50 Ml Syringe) 25 gm IVPUSH Q15M PRN; Protocol PRN Reason: per Hypoglycemia Standing Ord. Dextrose (Dextrose 50 % 25 Gm/50 Ml Syringe) 25 gm IVPUSH Q15M PRN; Protocol PRN Reason: per Hypoglycemia Standing Ord. Diazepam (Diazepam 10 Mg/2 Ml Cartridge) 5 mg IVPUSH Q4H PRN PRN Reason: Opiate Withdrawal Last Admin: 10/26/24 05:58 Dose: 5 mg Glucose (Glucose Gel 15 Gm Gel..Gram.) 15 gm PO Q15M PRN; Protocol PRN Reason: per Hypoglycemia Standing Ord. Piperacillin Sod/Tazobactam (Sod 3.375 gm/ Sodium Chloride) 50 mls @ 100 mls/hr IV Q6H [facility] Last Infusion: 10/30/24 06:49 Dose: Infused Acetaminophen (Ofirmev) 1,000 mg in 100 mls @ 400 mls/hr IV Q6H [facility] Last Infusion: 10/30/24 04:19 Dose: Infused Insulin Human Lispro (Insulin Lispro 100 Unit/Ml 3 Ml Vial) 0 unit SUBCUT QIDACHS [facility]; Protocol Last Admin: 10/30/24 08:17 Dose: 4 unit Ketorolac Tromethamine (Ketorolac Tromethamine 15 Mg/Ml Vial) 15 mg IVPUSH Q6H PRN PRN Reason: Pain, Mild 1-3,fever,headache Last Admin: 10/28/24 15:17 Dose: 15 mg Melatonin (Melatonin 3 Mg Tablet) 6 mg PO BEDTIME PRN PRN Reason: Insomnia Morphine Sulfate (Morphine Sulfate 2 Mg/Ml Cartridge) 6 mg IVPUSH Q3H PRN; Protocol PRN Reason: Pain, Severe (Pain Scale 7-10) Last Admin: 10/30/24 00:02 Dose: 6 mg Oxycodone HCl (Oxycodone Hcl Immed Release 5 Mg Tablet) 5 mg PO Q8H PRN PRN Reason: Pain, Moderate(Pain Scale 4-6) Last Admin: 10/30/24 05:31 Dose: 5 mg Sodium Chloride (0.9 % Sodium Chloride Flush 3 Ml Syringe) 3 ml IVFLUSH QSHIFT [facility] Last Admin: 10/30/24 08:20 Dose: 3 ml Tamsulosin HCl (Tamsulosin Hcl 0.4 Mg Capsule) 0.4 mg PO BEDTIME [facility] Last Admin: 10/29/24 19:50 Dose: 0.4 mg Allergies Allergies Allergy/AdvReac Type Severity Reaction Status Date / Time aspirin Allergy Itching Verified 10/24/24 16:02 Assessment & Plan Assessment & Plan (1) Opiate dependence: Qualifiers: Substance use status: with other opioid-induced disorder Qualified Code(s): F11.288 - Opioid dependence with other opioid-induced disorder Status: Acute Code(s): F11.20 - Opioid dependence, uncomplicated Assessment and Plan: * OUD --declines to discuss risk reduction, overdose prevention or transition to medications for OUD * ensure patient is discharged home with narcan and is taught how to use it * fashion consultant selling will provide folder with resources to ensure patient is aware of resources should he change his mind Total time managing care of this patient today __20__ minutes.
[2024-10-30 09:45] LABS: Magnesium 2.0 mg/dL (1.6-2.6)
[2024-10-30] MEDS: Potassium Chloride/H20 10 MEQ/100 ML PIGGYBACK 100 MEQ IV ×2 (10:42→12:00)
[2024-10-30 11:31] LABS: Glucose, Whole Blood 226 mg/dL (60-115)
[2024-10-30 16:12] LABS: Glucose, Whole Blood 196 mg/dL (60-115)
--- NOTE | 2024-10-30 17:13 | PC.NURSE ---
Pt refused to drink potassium replacement drink this am, so IV replacement given. PO K was discontinued in APR, making it impossible to edit the entry. Pharmacy made aware, MAYDA Boyd made aware.
[2024-10-30 19:51] LABS: Glucose, Whole Blood 217 mg/dL (60-115)
[2024-10-31] VITALS (10 sets, daily range): BP systolic 137–167; BP diastolic 68–85; PULSE 91–104; RESP 12–20; TEMP 36.2–37.2; O2SAT 92–94
[2024-10-31 07:11] LABS: Glucose, Whole Blood 222 mg/dL (60-115)
--- NOTE | 2024-10-31 07:53 | PM.PNGS ---
Subjective Subjective Date of Service: 10/31/24 Interval history: Patient denies significant abdominal pain. Feels less bloated and continues to pass liquid stool and gas. Denies any nausea with his current diet. Would like to try regular diet. Physical Exam Vital Signs: Vital Signs: Last Vital Signs Temp 97.6 F 10/31/24 07:11 Pulse 91 10/31/24 07:11 Resp 18 10/31/24 07:11 BP 154/74 H 10/31/24 07:11 Pulse Ox 93 10/31/24 07:11 O2 Del Method Room Air 10/31/24 07:11 O2 Flow Rate 2 10/27/24 12:53 BMI result Body Mass Index 35.0 Const: General: no acute distress Nutritional Appearance: well nourished Orientation/consciousness: patient oriented x3 Resp: Effort & Inspection: normal respiratory effort, no audible wheezes, no cough and no respiratory distress GI: Other: Abdominal incision is clean, dry and intact with intact hilary. Abdomen is much softer with no tympany to percussion. Still mildly distended. Neuro: General: patient oriented x3 Extrem: Other: No edema Objective Data Active Medications Amlodipine Besylate (Amlodipine Besylate 10 Mg Tablet) 10 mg PO DAILY [facility]; Protocol Calcium Carbonate (Calcium Carbonate 750 Mg Tab.Chew) 750 mg PO Q4H PRN PRN Reason: Heartburn Last Admin: 10/27/24 21:15 Dose: 750 mg Documented By: JILLIAN Dextrose (Dextrose 50 % 25 Gm/50 Ml Syringe) 25 gm IVPUSH Q15M PRN; Protocol PRN Reason: per Hypoglycemia Standing Ord. Dextrose (Dextrose 50 % 25 Gm/50 Ml Syringe) 25 gm IVPUSH Q15M PRN; Protocol PRN Reason: per Hypoglycemia Standing Ord. Diazepam (Diazepam 10 Mg/2 Ml Cartridge) 5 mg IVPUSH Q4H PRN PRN Reason: Opiate Withdrawal Last Admin: 10/26/24 05:58 Dose: 5 mg Documented By: CARLEE Glucose (Glucose Gel 15 Gm Gel..Gram.) 15 gm PO Q15M PRN; Protocol PRN Reason: per Hypoglycemia Standing Ord. Piperacillin Sod/Tazobactam (Sod 3.375 gm/ Sodium Chloride) 50 mls @ 100 mls/hr IV Q6H [facility] Last Infusion: 10/31/24 06:08 Dose: Infused Documented By: BRI Acetaminophen (Ofirmev) 1,000 mg in 100 mls @ 400 mls/hr IV Q6H [facility] Last Infusion: 10/31/24 04:03 Dose: Infused Documented By: BRI Insulin Glargine (Insulin Glargine,Hum.Rec.Anlog 100 Unit/Ml 10 Ml Vial) 15 unit SUBCUT DAILY [facility] Insulin Human Lispro (Insulin Lispro 100 Unit/Ml 3 Ml Vial) 0 unit SUBCUT QIDACHS [facility]; Protocol Last Admin: 10/30/24 22:14 Dose: 4 unit Documented By: BRYSON Ketorolac Tromethamine (Ketorolac Tromethamine 15 Mg/Ml Vial) 15 mg IVPUSH Q6H PRN PRN Reason: Pain, Mild 1-3,fever,headache Last Admin: 10/30/24 16:29 Dose: 15 mg Documented By: SOLISPE Lisinopril (Lisinopril 5 Mg Tablet) 5 mg PO DAILY [facility]; Protocol Melatonin (Melatonin 3 Mg Tablet) 6 mg PO BEDTIME PRN PRN Reason: Insomnia Morphine Sulfate (Morphine Sulfate 2 Mg/Ml Cartridge) 6 mg IVPUSH Q3H PRN; Protocol PRN Reason: Pain, Severe (Pain Scale 7-10) Last Admin: 10/31/24 04:51 Dose: 6 mg Documented By: BRI Oxycodone HCl (Oxycodone Hcl Immed Release 5 Mg Tablet) 5 mg PO Q8H PRN PRN Reason: Pain, Moderate(Pain Scale 4-6) Last Admin: 10/30/24 22:17 Dose: 5 mg Documented By: BRYSON Sodium Chloride (0.9 % Sodium Chloride Flush 3 Ml Syringe) 3 ml IVFLUSH QSHIFT [facility] Last Admin: 10/30/24 23:58 Dose: Not Given Documented By: BRI Non-Admin Reason: Previously Administered Tamsulosin HCl (Tamsulosin Hcl 0.4 Mg Capsule) 0.4 mg PO BEDTIME [facility] Last Admin: 10/30/24 22:14 Dose: 0.4 mg Documented By: BRYSON Labs 10/30/24 05:20 10/30/24 05:20 Labs: Laboratory Results - last 24 hr 0910/30/24 10/30/24 05:20 11:24 16:05 POC Glucose 226 H 196 H Magnesium 2.0 10/30/24 10/31/24 19:47 07:04 POC Glucose 217 H 222 H Magnesium Microbiology Microbiology Results: Microbiology 10/26/24 01:04 Blood Culture - Final Blood - Venous No growth after 5 days. 10/26/24 01:04 Blood Culture - Final Blood - Venous No growth after 5 days. Procedures Date of Service Date of Service: 10/31/24 Progress Note: A&P Assessment and plan (1) Small bowel obstruction: Status: Acute (2) S/P exploratory laparotomy: Status: Acute (3) Hypokalemia: Status: Acute Plan POD 6 following exploratory laparotomy, enterolysis for small bowel obstruction. He continues to have liquid stool and flatus. He is tolerating full liquid diet without nausea or vomiting. Potassium 2.9 yesterday, received additional potassium bolus. Repeat labs pending for this morning. Advance to regular diet today. Encouraged out of bed and ambulation. Time Spent With Patient Time: Total time managing care of this patient today ____ minutes. Quality Stroke Does the patient have a stroke diagnosis?: No VTE Prior VTE?: No VTE Risk Level:: Surgical - moderate VTE Device Contraindication: N/A - Device Ordered VTE Drug Contraindication: Treatment Not Indicated
[2024-10-31] MEDS: Insulin Glargine,Hum.rec.anlog 100 UNIT/ML 10 ML VIAL 15 UNIT SUBCUT (08:44)
[2024-10-31] MEDS: 0.9 % Sodium Chloride Flush 3 ML SYRINGE IVFLUSH ×3 (08:45→21:54)
[2024-10-31 09:43] LABS: Anion Gap 11 (12-20); Blood Urea Nitrogen 7 mg/dL (9-16); Calcium 7.9 mg/dL (8.4-10.2); Carbon Dioxide 31 mmol/L (22-29); Chloride 96 mmol/L (96-108); Creatinine Clr Calc Pharmacy 172.5; Estimated Glomerular Filt Rate > 60; Potassium 3.0 mmol/L (3.3-5.1); Sodium 135 mmol/L (135-145)
[2024-10-31 11:20] LABS: Glucose, Whole Blood 235 mg/dL (60-115)
--- NOTE | 2024-10-31 14:03 | PM.EVENT ---
Event Note Date of Service: 10/31/24 Event Note: Reassessed this afternoon. He is tolerating solid diet but continues to have loose stools, abd distention. Exam virtually unchanged. Will obtain CT scan abd/pelvis to assess for possible colitis. Obtain C diff. Repeat CBC and BMP in AM. Of note, discussed with hospitalist service regarding HTN and diabetes mellitus management. Apparently med rec was incorrect and is on metformin 100mg BID, glipizide 10mg daily and lisinopril. Meds resumed today while inpatient and can be continued at home. Will hold metformin now given repeat CT scan with IV contrast. Time Spent With Patient Time: Total time managing care of this patient today ____ minutes.
--- NOTE | 2024-10-31 15:38 | MHC.CM.PN ---
EMR reviewed and per MD rounds, pt is not medically cleared for discharge due to management of POD6 s/p exploratory laparotomy, enterolysis for small bowel obstruction.
[2024-10-31 16:37] LABS: Glucose, Whole Blood 237 mg/dL (60-115)
[2024-10-31] MEDS: iohexoL 350 MG/ML 100 ML INFUS..BTL IV (16:46)
[2024-10-31 16:53] LABS: CDiff Gene PCR POSITIVE (Negative)
[2024-10-31] MEDS: Potassium Chloride Packet 20 MEQ PACKET 40 MEQ PO (17:14)
[2024-10-31] MEDS: oxyCODONE HCl Immed Release 5 MG TABLET PO (17:20)
[2024-10-31 17:38] LABS: CDIFF Internal ctrl Dots and bkg OK (V); CDiff Toxin Negative (Negative)
--- NOTE | 2024-10-31 18:49 | HO.PM.IMPN ---
Subjective Subjective Date of Service: 10/31/24 Interval History: Continues to have loose stool and diffuse abdominal pain Tolerating solid diet No nausea or vomiting Denies chest pain or pressure Review of Systems Review of Systems: Yes all other systems are reviewed and are negative Physical Exam Exam: Exam: General: AOx3, no acute distress. Resp: CTA bilaterally CVS: S1, S2, RRR GI: Abd slightly firm and mildly distended. Surgical incision intact, clean, dry. Diffuse abd tenderness Skin: Warm, dry Neuro: Cranial nerves II-XII grossly intact bilaterally. Motor grossly intact bilaterally Extremities: No edema Psych: Appropriate affect Vital Signs: Vital Signs: Last Vital Signs Temp 98.6 F 10/31/24 15:49 Pulse 99 10/31/24 15:49 Resp 12 10/31/24 15:49 BP 148/85 H 10/31/24 15:49 Pulse Ox 93 10/31/24 15:49 O2 Del Method Room Air 10/31/24 15:49 O2 Flow Rate 2 10/27/24 12:53 BMI result Body Mass Index 35.0 Objective Data Active Medications Acetaminophen (Acetaminophen 325 Mg Tablet) 650 mg PO Q6H PRN PRN Reason: Pain, Mild 1-3,fever,headache Calcium Carbonate (Calcium Carbonate 750 Mg Tab.Chew) 750 mg PO Q4H PRN PRN Reason: Heartburn Last Admin: 10/31/24 11:44 Dose: 750 mg Documented By: KEYSHA Dextrose (Dextrose 50 % 25 Gm/50 Ml Syringe) 25 gm IVPUSH Q15M PRN; Protocol PRN Reason: per Hypoglycemia Standing Ord. Dextrose (Dextrose 50 % 25 Gm/50 Ml Syringe) 25 gm IVPUSH Q15M PRN; Protocol PRN Reason: per Hypoglycemia Standing Ord. Diazepam (Diazepam 10 Mg/2 Ml Cartridge) 5 mg IVPUSH Q4H PRN PRN Reason: Opiate Withdrawal Last Admin: 10/26/24 05:58 Dose: 5 mg Documented By: CARLEE Glipizide (Glipizide 10 Mg Tablet) 10 mg PO DAILY [facility] Glucose (Glucose Gel 15 Gm Gel..Gram.) 15 gm PO Q15M PRN; Protocol PRN Reason: per Hypoglycemia Standing Ord. Insulin Human Lispro (Insulin Lispro 100 Unit/Ml 3 Ml Vial) 0 unit SUBCUT QIDACHS [facility]; Protocol Last Admin: 10/31/24 17:14 Dose: 4 unit Documented By: KEYSHA Ketorolac Tromethamine (Ketorolac Tromethamine 15 Mg/Ml Vial) 15 mg IVPUSH Q6H PRN PRN Reason: Pain, Mild 1-3,fever,headache Last Admin: 10/30/24 16:29 Dose: 15 mg Documented By: UNIQUE Lisinopril (Lisinopril 5 Mg Tablet) 5 mg PO DAILY [facility]; Protocol Last Admin: 10/31/24 08:45 Dose: 5 mg Documented By: KEYSHA Melatonin (Melatonin 3 Mg Tablet) 6 mg PO BEDTIME PRN PRN Reason: Insomnia Morphine Sulfate (Morphine Sulfate 2 Mg/Ml Cartridge) 6 mg IVPUSH Q3H PRN; Protocol PRN Reason: Pain, Severe (Pain Scale 7-10) Last Admin: 10/31/24 04:51 Dose: 6 mg Documented By: BRI Oxycodone HCl (Oxycodone Hcl Immed Release 5 Mg Tablet) 5 mg PO Q8H PRN PRN Reason: Pain, Moderate(Pain Scale 4-6) Last Admin: 10/31/24 17:20 Dose: 5 mg Documented By: KEYSHA Sodium Chloride (0.9 % Sodium Chloride Flush 3 Ml Syringe) 3 ml IVFLUSH [facility] Last Admin: 10/31/24 15:30 Dose: 3 ml Documented By: KEYSHA Tamsulosin HCl (Tamsulosin Hcl 0.4 Mg Capsule) 0.4 mg PO BEDTIME [facility] Last Admin: 10/30/24 22:14 Dose: 0.4 mg Documented By: BRYSON Vancomycin HCl (Vancomycin Hcl Oral Solution 125 Mg/5 Ml Soln.Recon) 125 mg PO Q6H [facility] Labs 10/30/24 05:20 10/31/24 08:42 Labs: Laboratory Results - last 24 hr 10/30/24 10/31/24 10/31/24 19:47 07:04 08:42 Anion Gap 11 L Estim Creat Clear Calc 172.5 Estimated GFR > 60 POC Glucose 217 H 222 H Fasting Glucose 228 H Calcium 7.9 L C. difficile Tox B Gene C. difficile Toxin A&B C. difficile Interpret 10/31/24 10/31/24 10/31/24 11:11 15:28 16:29 Anion Gap Estim Creat Clear Calc Estimated GFR POC Glucose 235 H 237 H Fasting Glucose Calcium C. difficile Tox B Gene POSITIVE A* C. difficile Toxin A&B Negative C. difficile Interpret SEE NOTE Microbiology Microbiology Results: Microbiology 10/26/24 01:04 Blood Culture - Final Blood - Venous No growth after 5 days. 10/26/24 01:04 Blood Culture - Final Blood - Venous No growth after 5 days. Assessment and Plan (1) Small bowel obstruction: Status: Acute Plan This is a 58 year old male with reported history of DM, BPH, chronic back pain who presents with abdominal pain found to have SBO SBO was unable to have NGT due to previous nasal surgery, failed conservative measures and had worsening abd pain and distention s/p d ex lap through large midline incision with lysis of adhesions on 10/25 tolerating full diet surgical management as per general surgery hypokalemia has been recurrent during admission supplement as necessary follow bmp chest pain has complained of intermittent cp during admission seems pleuritic in nature. also reproducible cxr unremarkable, serial trops all flat and WNL echo showed mildly dilated left ventricle with [id number] LV systolic dysfunction with EF of 40-45% Should follow up outpatient with Cardiology NIDDM, poorly controlled hba1c 9.5 Reports on metformin 1000mg bid and glipizide 10 mg daily at home follow POCs, cover with SSI Hold metformin, continue glipizide 10 mg daily If POC is still >200, add Lantus 15 units Needs to follow with PCP for diabetes management HTN On lisinopril 5mg daily at home Started on amlodipine 5 mg daily follow BP Opioid use disorder uses oxycodone purchased without prescription 5mg 4x daily for 10-15 years Toxicology screen positive for oxycodone addiction med following Thank you for allowing us to participate in the care of this patient, we will follow along with you. Quality Stroke Does the patient have a stroke diagnosis?: No VTE Prior VTE?: No VTE Risk Level:: Surgical - moderate VTE Device Contraindication: N/A - Device Ordered VTE Drug Contraindication: Treatment Not Indicated
[2024-10-31 20:12] LABS: Glucose, Whole Blood 272 mg/dL (60-115)
[2024-10-31] MEDS: vancomycin HCL Oral Solution 125 MG/5 ML SOLN.RECON PO (21:47)
[2024-11-01] VITALS (12 sets, daily range): BP systolic 108–155; BP diastolic 52–83; PULSE 88–106; RESP 18–20; TEMP 36.2–36.9; O2SAT 92–95; BMI 33.7
[2024-11-01] MEDS: vancomycin HCL Oral Solution 125 MG/5 ML SOLN.RECON PO ×4 (02:44→20:42)
[2024-11-01] MEDS: oxyCODONE HCl Immed Release 5 MG TABLET PO ×2 (04:58→20:48)
[2024-11-01 07:15] LABS: Glucose, Whole Blood 225 mg/dL (60-115)
[2024-11-01 07:22] LABS: Hematocrit 42.1 % (42.0-52.0); Hemoglobin 13.9 g/dl (14.0-18.0); Mean Corpuscular HGB Conc 33.0 g/dl (31.0-36.0); Mean Corpuscular Hemoglobin 27.2 pg (27.0-33.0); Mean Corpuscular Volume 82.4 fL (80.0-98.0); NRBC Abs Auto 0.000 X10*3/uL (0.0-0.012); NRBC Pct Auto 0.0 /100WBC (0.0-0.2); Platelet Count 360 X10*3/uL (160-400); Red Blood Count 5.11 X10*6/uL (4.60-5.80); White Blood Count 16.7 X10*3/uL (4.8-10.8)
[2024-11-01 07:46] LABS: Basophils Abs Manual 0.2 X10*3/uL (0.0-0.2); Basophils Percent Manual 1 % (0-2); Eosinophils Absolute Manual 0.3 X10*3/uL (0.0-0.4); Eosinophils Percent Manual 2 % (0-4); Lymphocytes Absolute Manual 1.2 X10*3/uL (1.2-4.9); Lymphocytes Percent Manual 7 % (20-40); Monocytes Absolute Manual 1.0 X10*3/uL (0.1-1.2); Monocytes Percent Manual 6 % (2-11); Neutrophils Percent Manual 84 % (45-73)
[2024-11-01 07:47] LABS: Band Neutrophils Percent 0 % (3-5); Neutrophils Absolute Manual 14.0 X10*3/uL (2.0-8.3); RBC Morphology NORMAL; Toxic Vacuolation PRESENT
[2024-11-01 07:57] LABS: Anion Gap 13 (12-20); Blood Urea Nitrogen 6 mg/dL (9-16); Calcium 8.0 mg/dL (8.4-10.2); Carbon Dioxide 29 mmol/L (22-29); Chloride 95 mmol/L (96-108); Creatinine Clr Calc Pharmacy 182.5; Estimated Glomerular Filt Rate > 60; Potassium 2.9 mmol/L (3.3-5.1); Sodium 134 mmol/L (135-145)
[2024-11-01] MEDS: Potassium Chloride Packet 20 MEQ PACKET 40 MEQ PO (08:19)
[2024-11-01] MEDS: Potassium Chloride/H20 10 MEQ/100 ML PIGGYBACK 100 MEQ IV ×4 (08:19→13:22)
[2024-11-01] MEDS: 0.9 % Sodium Chloride Flush 3 ML SYRINGE IVFLUSH ×3 (08:20→20:42)
--- NOTE | 2024-11-01 09:36 | PM.PNGS ---
Subjective Subjective Date of Service: 11/01/24 Interval history: Some watery stools Tolerating diet No nausea or vomiting Physical Exam Vital Signs: Vital Signs: Last Vital Signs Temp 97.1 F 11/01/24 07:33 Pulse 103 H 11/01/24 07:33 Resp 18 11/01/24 07:33 BP 128/71 11/01/24 07:33 Pulse Ox 95 11/01/24 07:33 O2 Del Method Room Air 11/01/24 07:33 O2 Flow Rate 2 10/27/24 12:53 BMI result Body Mass Index 35.0 Const: Other: Complains of pain from the IV site because of potassium running Resp: Effort & Inspection: normal respiratory effort Cardio: Rate: regular rate GI: Other: Incision well healing, clean and dry Palpation (GI): Soft to palpation, not firm and no guarding Objective Data Active Medications Acetaminophen (Acetaminophen 325 Mg Tablet) 650 mg PO Q6H PRN PRN Reason: Pain, Mild 1-3,fever,headache Amlodipine Besylate (Amlodipine Besylate 5 Mg Tablet) 5 mg PO DAILY [facility]; Protocol Last Admin: 11/01/24 08:19 Dose: 5 mg Documented By: KEYSHA Calcium Carbonate (Calcium Carbonate 750 Mg Tab.Chew) 750 mg PO Q4H PRN PRN Reason: Heartburn Last Admin: 10/31/24 11:44 Dose: 750 mg Documented By: KEYSHA Dextrose (Dextrose 50 % 25 Gm/50 Ml Syringe) 25 gm IVPUSH Q15M PRN; Protocol PRN Reason: per Hypoglycemia Standing Ord. Dextrose (Dextrose 50 % 25 Gm/50 Ml Syringe) 25 gm IVPUSH Q15M PRN; Protocol PRN Reason: per Hypoglycemia Standing Ord. Diazepam (Diazepam 10 Mg/2 Ml Cartridge) 5 mg IVPUSH Q4H PRN PRN Reason: Opiate Withdrawal Last Admin: 10/26/24 05:58 Dose: 5 mg Documented By: CARLEE Glipizide (Glipizide 10 Mg Tablet) 10 mg PO DAILY [facility] Last Admin: 11/01/24 08:19 Dose: 10 mg Documented By: KEYSHA Glucose (Glucose Gel 15 Gm Gel..Gram.) 15 gm PO Q15M PRN; Protocol PRN Reason: per Hypoglycemia Standing Ord. Potassium Chloride (Potassium Chloride/H20) 10 meq in 100 mls @ 100 mls/hr IV Q1H [facility] Stop: 11/01/24 12:14 Last Admin: 11/01/24 08:19 Dose: 100 mls/hr Documented By: KEYSHA Insulin Human Lispro (Insulin Lispro 100 Unit/Ml 3 Ml Vial) 0 unit SUBCUT QIDACHS [facility]; Protocol Last Admin: 11/01/24 08:19 Dose: 4 unit Documented By: KEYSHA Ketorolac Tromethamine (Ketorolac Tromethamine 15 Mg/Ml Vial) 15 mg IVPUSH Q6H PRN PRN Reason: Pain, Mild 1-3,fever,headache Last Admin: 10/30/24 16:29 Dose: 15 mg Documented By: UNIQUE Lisinopril (Lisinopril 5 Mg Tablet) 5 mg PO DAILY [facility]; Protocol Last Admin: 11/01/24 08:19 Dose: 5 mg Documented By: KEYSHA Melatonin (Melatonin 3 Mg Tablet) 6 mg PO BEDTIME PRN PRN Reason: Insomnia Morphine Sulfate (Morphine Sulfate 2 Mg/Ml Cartridge) 6 mg IVPUSH Q3H PRN; Protocol PRN Reason: Pain, Severe (Pain Scale 7-10) Last Admin: 10/31/24 21:47 Dose: 6 mg Documented By: DOLLY Oxycodone HCl (Oxycodone Hcl Immed Release 5 Mg Tablet) 5 mg PO Q8H PRN PRN Reason: Pain, Moderate(Pain Scale 4-6) Last Admin: 11/01/24 04:58 Dose: 5 mg Documented By: DOLLY Sodium Chloride (0.9 % Sodium Chloride Flush 3 Ml Syringe) [facility] Last Admin: 11/01/24 08:20 Dose: 3 ml Documented By: KEYSHA Tamsulosin HCl (Tamsulosin Hcl 0.4 Mg Capsule) 0.4 mg PO BEDTIME [facility] Last Admin: 10/31/24 21:47 Dose: 0.4 mg Documented By: DOLLY Vancomycin HCl (Vancomycin Hcl Oral Solution 125 Mg/5 Ml Soln.Recon) 125 mg PO Q6H [facility] Last Admin: 11/01/24 08:21 Dose: 125 mg Documented By: KEYSHA Labs 11/01/24 06:51 11/01/24 06:51 Labs: Laboratory Results - last 24 hr 10/31/24 10/31/24 10/31/24 08:42 11:11 15:28 MCV MCH MCHC RDW Plt Count MPV Immature Gran % (Auto) Neut % (Auto) Lymph % (Auto) [place] % (Auto) Eos % (Auto) Baso % (Auto) Lymph # (Auto) [place] # (Auto) Eos # (Auto) Baso # (Auto) Abs Immat Gran (auto) Absolute Neuts (auto) Absolute Nucleated RBC Nucleated RBC % (auto) Neutrophils % (Manual) Band Neutrophils % Lymphocytes % (Manual) Monocytes % (Manual) Eosinophils % (Manual) Basophils % (Manual) Abs Neuts (Manual) Lymphocytes # (Manual) Monocytes # (Manual) Eosinophils # (Manual) Basophils # (Manual) Toxic Vacuolation Platelet Estimate Plt Morphology Comment RBC Morphology Anion Gap 11 L Estim Creat Clear Calc 172.5 Estimated GFR > 60 POC Glucose 235 H Fasting Glucose 228 H Calcium 7.9 L C. difficile Tox B Gene POSITIVE A* C. difficile Toxin A&B Negative C. difficile Interpret SEE NOTE 10/31/24 10/31/24 11/01/24 16:29 20:07 06:51 MCV 82.4 MCH 27.2 MCHC 33.0 RDW 12.9 Plt Count 360 MPV 8.9 L Immature Gran % (Auto) Cancelled Neut % (Auto) Cancelled Lymph % (Auto) Cancelled [place] % (Auto) Cancelled Eos % (Auto) Cancelled Baso % (Auto) Cancelled Lymph # (Auto) Cancelled [place] # (Auto) Cancelled Eos # (Auto) Cancelled Baso # (Auto) Cancelled Abs Immat Gran (auto) Cancelled Absolute Neuts (auto) Cancelled Absolute Nucleated RBC 0.000 Nucleated RBC % (auto) 0.0 Neutrophils % (Manual) 84 H Band Neutrophils % 0 L Lymphocytes % (Manual) 7 L Monocytes % (Manual) 6 Eosinophils % (Manual) 2 Basophils % (Manual) 1 Abs Neuts (Manual) 14.0 H Lymphocytes # (Manual) 1.2 Monocytes # (Manual) 1.0 Eosinophils # (Manual) 0.3 Basophils # (Manual) 0.2 Toxic Vacuolation PRESENT Platelet Estimate NORMAL Plt Morphology Comment NORMAL RBC Morphology NORMAL Anion Gap 13 Estim Creat Clear Calc 182.5 Estimated GFR > 60 POC Glucose 237 H 272 H Fasting Glucose 234 H Calcium 8.0 L C. difficile Tox B Gene C. difficile Toxin A&B C. difficile Interpret 11/01/24 07:07 MCV MCH MCHC RDW Plt Count MPV Immature Gran % (Auto) Neut % (Auto) Lymph % (Auto) [place] % (Auto) Eos % (Auto) Baso % (Auto) Lymph # (Auto) [place] # (Auto) Eos # (Auto) Baso # (Auto) Abs Immat Gran (auto) Absolute Neuts (auto) Absolute Nucleated RBC Nucleated RBC % (auto) Neutrophils % (Manual) Band Neutrophils % Lymphocytes % (Manual) Monocytes % (Manual) Eosinophils % (Manual) Basophils % (Manual) Abs Neuts (Manual) Lymphocytes # (Manual) Monocytes # (Manual) Eosinophils # (Manual) Basophils # (Manual) Toxic Vacuolation Platelet Estimate Plt Morphology Comment RBC Morphology Anion Gap Estim Creat Clear Calc Estimated GFR POC Glucose 225 H Fasting Glucose Calcium C. difficile Tox B Gene C. difficile Toxin A&B C. difficile Interpret Procedures Date of Service Date of Service: 11/01/24 Progress Note: A&P Assessment and plan (1) Small bowel obstruction: Status: Acute Assessment and Plan: Status post laparotomy, lysis of adhesions Now with watery stools, C diff positive Started on vancomycin yesterday Replace potassium Abdomen otherwise benign Tolerating diet Discharge planning once diarrhea resolves Discussed with the hospitalist service Time Spent With Patient Time: Total time managing care of this patient today ____ minutes. Quality Stroke Does the patient have a stroke diagnosis?: No VTE Prior VTE?: No VTE Risk Level:: Surgical - moderate VTE Device Contraindication: N/A - Device Ordered VTE Drug Contraindication: Treatment Not Indicated
[2024-11-01 11:29] LABS: Glucose, Whole Blood 240 mg/dL (60-115)
[2024-11-01 16:22] LABS: Glucose, Whole Blood 248 mg/dL (60-115)
[2024-11-01 20:51] LABS: Glucose, Whole Blood 233 mg/dL (60-115)
[2024-11-02] VITALS (11 sets, daily range): BP systolic 137–164; BP diastolic 64–79; PULSE 92–111; RESP 16–20; TEMP 36.1–36.8; O2SAT 93–95
[2024-11-02] MEDS: vancomycin HCL Oral Solution 125 MG/5 ML SOLN.RECON PO ×4 (02:37→21:32)
--- NOTE | 2024-11-02 07:12 | HO.PM.IMPN ---
Subjective Subjective Date of Service: 11/02/24 Interval History: No diarrhea this morning, stool no longer liquid Reports hesitancy, incomplete bladder empying Recent bladder scan 326 Abd pain better No N/V Review of Systems Review of Systems: Yes all other systems are reviewed and are negative Physical Exam Exam: Exam: General: AOx3, no acute distress. Resp: CTA bilaterally CVS: S1, S2, RRR GI: Abd slightly firm, not tympanic. Surgical incision intact, clean, dry. Non tender Skin: Warm, dry Neuro: Cranial nerves II-XII grossly intact bilaterally. Motor grossly intact bilaterally Extremities: No edema Psych: Appropriate affect Vital Signs: Vital Signs: Last Vital Signs Temp 98.3 F 11/02/24 03:47 Pulse 103 H 11/02/24 03:47 Resp 20 11/02/24 03:47 BP 148/70 H 11/02/24 03:47 Pulse Ox 93 11/02/24 03:47 O2 Del Method Room Air 11/02/24 03:47 O2 Flow Rate 2 10/27/24 12:53 BMI result Body Mass Index 33.7 Objective Data Active Medications Acetaminophen (Acetaminophen 325 Mg Tablet) 650 mg PO Q6H PRN PRN Reason: Pain, Mild 1-3,fever,headache Amlodipine Besylate (Amlodipine Besylate 5 Mg Tablet) 5 mg PO DAILY [facility]; Protocol Last Admin: 11/01/24 08:19 Dose: 5 mg Documented By: KEYSHA Calcium Carbonate (Calcium Carbonate 750 Mg Tab.Chew) 750 mg PO Q4H PRN PRN Reason: Heartburn Last Admin: 10/31/24 11:44 Dose: 750 mg Documented By: KEYSHA Dextrose (Dextrose 50 % 25 Gm/50 Ml Syringe) 25 gm IVPUSH Q15M PRN; Protocol PRN Reason: per Hypoglycemia Standing Ord. Dextrose (Dextrose 50 % 25 Gm/50 Ml Syringe) 25 gm IVPUSH Q15M PRN; Protocol PRN Reason: per Hypoglycemia Standing Ord. Diazepam (Diazepam 10 Mg/2 Ml Cartridge) 5 mg IVPUSH Q4H PRN PRN Reason: Opiate Withdrawal Last Admin: 10/26/24 05:58 Dose: 5 mg Documented By: CARLEE Glipizide (Glipizide 10 Mg Tablet) 10 mg PO DAILY [facility] Last Admin: 11/01/24 08:19 Dose: 10 mg Documented By: KEYSHA Glucose (Glucose Gel 15 Gm Gel..Gram.) 15 gm PO Q15M PRN; Protocol PRN Reason: per Hypoglycemia Standing Ord. Insulin Glargine (Insulin Glargine,Hum.Rec.Anlog 100 Unit/Ml 10 Ml Vial) 15 unit SUBCUT DAILY [facility] Insulin Human Lispro (Insulin Lispro 100 Unit/Ml 3 Ml Vial) 0 unit SUBCUT QIDACHS [facility]; Protocol Last Admin: 11/01/24 20:42 Dose: 4 unit Documented By: DOLLY Ketorolac Tromethamine (Ketorolac Tromethamine 15 Mg/Ml Vial) 15 mg IVPUSH Q6H PRN PRN Reason: Pain, Mild 1-3,fever,headache Last Admin: 10/30/24 16:29 Dose: 15 mg Documented By: UNIQUE Lisinopril (Lisinopril 5 Mg Tablet) 5 mg PO DAILY [facility]; Protocol Last Admin: 11/01/24 08:19 Dose: 5 mg Documented By: KEYSHA Melatonin (Melatonin 3 Mg Tablet) 6 mg PO BEDTIME PRN PRN Reason: Insomnia Morphine Sulfate (Morphine Sulfate 2 Mg/Ml Cartridge) 6 mg IVPUSH Q3H PRN; Protocol PRN Reason: Pain, Severe (Pain Scale 7-10) Last Admin: 10/31/24 21:47 Dose: 6 mg Documented By: DOLLY Oxycodone HCl (Oxycodone Hcl Immed Release 5 Mg Tablet) 5 mg PO Q8H PRN PRN Reason: Pain, Moderate(Pain Scale 4-6) Last Admin: 11/01/24 20:48 Dose: 5 mg Documented By: DOLLY Sodium Chloride (0.9 % Sodium Chloride Flush 3 Ml Syringe) [facility] Last Admin: 11/01/24 20:42 Dose: 3 ml Documented By: DOLLY Tamsulosin HCl (Tamsulosin Hcl 0.4 Mg Capsule) 0.4 mg PO BEDTIME [facility] Last Admin: 11/01/24 20:42 Dose: 0.4 mg Documented By: DOLLY Vancomycin HCl (Vancomycin Hcl Oral Solution 125 Mg/5 Ml Soln.Recon) 125 mg PO Q6H [facility] Last Admin: 11/02/24 02:37 Dose: 125 mg Documented By: DOLLY Labs 11/02/24 06:42 11/02/24 06:42 Labs: Laboratory Results - last 24 hr 11/01/24 11/01/24 11/01/24 06:51 07:07 11:15 MCV 82.4 MCH 27.2 MCHC 33.0 RDW 12.9 Plt Count 360 MPV 8.9 L Immature Gran % (Auto) Cancelled Neut % (Auto) Cancelled Lymph % (Auto) Cancelled [place] % (Auto) Cancelled Eos % (Auto) Cancelled Baso % (Auto) Cancelled Lymph # (Auto) Cancelled [place] # (Auto) Cancelled Eos # (Auto) Cancelled Baso # (Auto) Cancelled Abs Immat Gran (auto) Cancelled Absolute Neuts (auto) Cancelled Absolute Nucleated RBC 0.000 Nucleated RBC % (auto) 0.0 Neutrophils % (Manual) 84 H Band Neutrophils % 0 L Lymphocytes % (Manual) 7 L Monocytes % (Manual) 6 Eosinophils % (Manual) 2 Basophils % (Manual) 1 Abs Neuts (Manual) 14.0 H Lymphocytes # (Manual) 1.2 Monocytes # (Manual) 1.0 Eosinophils # (Manual) 0.3 Basophils # (Manual) 0.2 Toxic Vacuolation PRESENT Platelet Estimate NORMAL Plt Morphology Comment NORMAL RBC Morphology NORMAL Anion Gap 13 Estim Creat Clear Calc 182.5 Estimated GFR > 60 POC Glucose 225 H 240 H Fasting Glucose 234 H Calcium 8.0 L 11/01/24 11/01/24 16:18 20:34 MCV MCH MCHC RDW Plt Count MPV Immature Gran % (Auto) Neut % (Auto) Lymph % (Auto) [place] % (Auto) Eos % (Auto) Baso % (Auto) Lymph # (Auto) [place] # (Auto) Eos # (Auto) Baso # (Auto) Abs Immat Gran (auto) Absolute Neuts (auto) Absolute Nucleated RBC Nucleated RBC % (auto) Neutrophils % (Manual) Band Neutrophils % Lymphocytes % (Manual) Monocytes % (Manual) Eosinophils % (Manual) Basophils % (Manual) Abs Neuts (Manual) Lymphocytes # (Manual) Monocytes # (Manual) Eosinophils # (Manual) Basophils # (Manual) Toxic Vacuolation Platelet Estimate Plt Morphology Comment RBC Morphology Anion Gap Estim Creat Clear Calc Estimated GFR POC Glucose 248 H 233 H Fasting Glucose Calcium Assessment and Plan (1) Hypokalemia: Status: Acute (2) Small bowel obstruction: Status: Acute Plan This is a 58 year old male with reported history of DM, BPH, chronic back pain who presents with abdominal pain found to have SBO SBO was unable to have NGT due to previous nasal surgery, failed conservative measures and had worsening abd pain and distention s/p d ex lap through large midline incision with lysis of adhesions on 10/25 tolerating full diet surgical management as per general surgery Question of acute CDiff colitis C diff gene positive, C diff toxin negative Pt with intractable diarrhea Will treat with vancomycin 125mg po q6h x14 days Hypokalemia Has been recurrent during admission, secondary to diarrhea and now CDiff Supplement as necessary Follow bmp chest pain has complained of intermittent cp during admission seems pleuritic in nature. also reproducible cxr unremarkable, serial trops all flat and WNL echo showed mildly dilated left ventricle with [id number] LV systolic dysfunction with EF of 40-45% Should follow up outpatient with Cardiology NIDDM, poorly controlled hba1c 9.5 Reports on metformin 1000mg bid and glipizide 10 mg daily at home, not on med rec follow POCs, cover with SSI Hold metformin, continue glipizide 10 mg daily Will start on Lantus 15 units daily Needs to follow with PCP for diabetes management HTN On lisinopril 5mg daily at home; will increase to 10mg Started on amlodipine 5 mg daily Follow BP Opioid use disorder uses oxycodone purchased without prescription 5mg 4x daily for 10-15 years Toxicology screen positive for oxycodone Addiction med following Thank you for allowing us to participate in the care of this patient, we will follow along with you. Quality Stroke Does the patient have a stroke diagnosis?: No VTE Prior VTE?: No VTE Risk Level:: Surgical - moderate VTE Device Contraindication: N/A - Device Ordered VTE Drug Contraindication: Treatment Not Indicated
[2024-11-02 07:14] LABS: Hematocrit 43.8 % (42.0-52.0); Hemoglobin 14.2 g/dl (14.0-18.0); Mean Corpuscular HGB Conc 32.4 g/dl (31.0-36.0); Mean Corpuscular Hemoglobin 26.6 pg (27.0-33.0); Mean Corpuscular Volume 82.2 fL (80.0-98.0); NRBC Abs Auto 0.000 X10*3/uL (0.0-0.012); NRBC Pct Auto 0.0 /100WBC (0.0-0.2); Platelet Count 368 X10*3/uL (160-400); Red Blood Count 5.33 X10*6/uL (4.60-5.80); White Blood Count 15.5 X10*3/uL (4.8-10.8)
[2024-11-02 07:26] LABS: Anion Gap 10 (12-20); Blood Urea Nitrogen 6 mg/dL (9-16); Calcium 8.3 mg/dL (8.4-10.2); Carbon Dioxide 30 mmol/L (22-29); Chloride 98 mmol/L (96-108); Creatinine Clr Calc Pharmacy 169.3; Estimated Glomerular Filt Rate > 60; Potassium 3.1 mmol/L (3.3-5.1); Sodium 135 mmol/L (135-145)
[2024-11-02 07:32] LABS: Glucose, Whole Blood 227 mg/dL (60-115)
[2024-11-02] MEDS: 0.9 % Sodium Chloride Flush 3 ML SYRINGE IVFLUSH ×3 (08:25→21:33)
[2024-11-02] MEDS: Insulin Glargine,Hum.rec.anlog 100 UNIT/ML 10 ML VIAL 15 UNIT SUBCUT (08:25)
[2024-11-02] MEDS: Potassium Chloride ER 20 MEQ TAB.ER.PRT PO ×2 (08:26→21:32)
--- NOTE | 2024-11-02 10:19 | PM.PNGS ---
Subjective Subjective Date of Service: 11/02/24 Interval history: States he feels well Some diarrhea Denies significant pain As per nurse, ambulates well Physical Exam Vital Signs: Vital Signs: Last Vital Signs Temp 98.0 F 11/02/24 08:00 Pulse 107 H 11/02/24 08:00 Resp 20 11/02/24 08:00 BP 164/79 H 11/02/24 08:00 Pulse Ox 94 11/02/24 08:00 O2 Del Method Room Air 11/02/24 08:00 O2 Flow Rate 2 10/27/24 12:53 BMI result Body Mass Index 33.7 Const: General: comfortable, no acute distress and alert Resp: Effort & Inspection: normal respiratory effort Cardio: Rate: regular rate GI: Other: Incision clean and dry Palpation (GI): Soft to palpation, not firm and nontender Objective Data Active Medications Acetaminophen (Acetaminophen 325 Mg Tablet) 650 mg PO Q6H PRN PRN Reason: Pain, Mild 1-3,fever,headache Amlodipine Besylate (Amlodipine Besylate 5 Mg Tablet) 5 mg PO DAILY [facility]; Protocol Last Admin: 11/02/24 08:23 Dose: 5 mg Documented By: KEYSHA Calcium Carbonate (Calcium Carbonate 750 Mg Tab.Chew) 750 mg PO Q4H PRN PRN Reason: Heartburn Last Admin: 10/31/24 11:44 Dose: 750 mg Documented By: KEYSHA Dextrose (Dextrose 50 % 25 Gm/50 Ml Syringe) 25 gm IVPUSH Q15M PRN; Protocol PRN Reason: per Hypoglycemia Standing Ord. Dextrose (Dextrose 50 % 25 Gm/50 Ml Syringe) 25 gm IVPUSH Q15M PRN; Protocol PRN Reason: per Hypoglycemia Standing Ord. Diazepam (Diazepam 10 Mg/2 Ml Cartridge) 5 mg IVPUSH Q4H PRN PRN Reason: Opiate Withdrawal Last Admin: 10/26/24 05:58 Dose: 5 mg Documented By: CARLEE Finasteride (Finasteride 5 Mg Tablet) 5 mg PO DAILY [facility] Glipizide (Glipizide 10 Mg Tablet) 10 mg PO DAILY [facility] Last Admin: 11/02/24 08:23 Dose: 10 mg Documented By: KEYSHA Glucose (Glucose Gel 15 Gm Gel..Gram.) 15 gm PO Q15M PRN; Protocol PRN Reason: per Hypoglycemia Standing Ord. Insulin Glargine (Insulin Glargine,Hum.Rec.Anlog 100 Unit/Ml 10 Ml Vial) 15 unit SUBCUT DAILY [facility] Last Admin: 11/02/24 08:25 Dose: 15 unit Documented By: KEYSHA Insulin Human Lispro (Insulin Lispro 100 Unit/Ml 3 Ml Vial) 0 unit SUBCUT QIDACHS [facility]; Protocol Last Admin: 11/02/24 08:23 Dose: 4 unit Documented By: KEYSHA Ketorolac Tromethamine (Ketorolac Tromethamine 15 Mg/Ml Vial) 15 mg IVPUSH Q6H PRN PRN Reason: Pain, Mild 1-3,fever,headache Last Admin: 10/30/24 16:29 Dose: 15 mg Documented By: SOLISPE Lisinopril (Lisinopril 5 Mg Tablet) 5 mg PO DAILY [facility]; Protocol Last Admin: 11/02/24 08:23 Dose: 5 mg Documented By: KEYSHA Melatonin (Melatonin 3 Mg Tablet) 6 mg PO BEDTIME PRN PRN Reason: Insomnia Morphine Sulfate (Morphine Sulfate 2 Mg/Ml Cartridge) 6 mg IVPUSH Q3H PRN; Protocol PRN Reason: Pain, Severe (Pain Scale 7-10) Last Admin: 10/31/24 21:47 Dose: 6 mg Documented By: DOLLY Oxycodone HCl (Oxycodone Hcl Immed Release 5 Mg Tablet) 5 mg PO Q8H PRN PRN Reason: Pain, Moderate(Pain Scale 4-6) Last Admin: 11/01/24 20:48 Dose: 5 mg Documented By: DOLLY Potassium Chloride (Potassium Chloride Er 20 Meq Tab.Er.Prt) 20 meq PO BID [facility] Last Admin: 11/02/24 08:26 Dose: 20 meq Documented By: KEYSHA Sodium Chloride (0.9 % Sodium Chloride Flush 3 Ml Syringe) [facility] Last Admin: 11/02/24 08:25 Dose: 3 ml Documented By: KEYSHA Tamsulosin HCl (Tamsulosin Hcl 0.4 Mg Capsule) 0.4 mg PO BEDTIME [facility] Last Admin: 11/01/24 20:42 Dose: 0.4 mg Documented By: DOLLY Vancomycin HCl (Vancomycin Hcl Oral Solution 125 Mg/5 Ml Soln.Robel) 125 mg PO Q6H [facility] Last Admin: 11/02/24 08:23 Dose: 125 mg Documented By: KEYSHA Labs 11/02/24 06:42 11/02/24 06:42 Labs: Laboratory Results - last 24 hr 11/01/24 11/01/24 11/01/24 11:15 16:18 20:34 MCV MCH MCHC RDW Plt Count MPV Absolute Nucleated RBC Nucleated RBC % (auto) Anion Gap Estim Creat Clear Calc Estimated GFR POC Glucose 240 H 248 H 233 H Random Glucose Calcium 11/02/24 11/02/24 06:42 07:27 MCV 82.2 MCH 26.6 L MCHC 32.4 RDW 13.1 Plt Count 368 MPV 9.1 L Absolute Nucleated RBC 0.000 Nucleated RBC % (auto) 0.0 Anion Gap 10 L Estim Creat Clear Calc 169.3 Estimated GFR > 60 POC Glucose 227 H Random Glucose 241 H Calcium 8.3 L Procedures Date of Service Date of Service: 11/02/24 Progress Note: A&P Assessment and plan (1) S/P exploratory laparotomy: Status: Acute Assessment and Plan: Tolerating diet well Some diarrhea Positive for C diff On vanco As well overall PT eval discharge planning 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 Quality Stroke Does the patient have a stroke diagnosis?: No VTE Prior VTE?: No VTE Risk Level:: Surgical - moderate VTE Device Contraindication: N/A - Device Ordered VTE Drug Contraindication: Treatment Not Indicated
[2024-11-02 11:45] LABS: Glucose, Whole Blood 205 mg/dL (60-115)
[2024-11-02 16:11] LABS: Glucose, Whole Blood 198 mg/dL (60-115)
[2024-11-02 20:31] LABS: Glucose, Whole Blood 193 mg/dL (60-115)
[2024-11-02] MEDS: oxyCODONE HCl Immed Release 5 MG TABLET PO (21:32)
[2024-11-03] VITALS (12 sets, daily range): BP systolic 114–146; BP diastolic 60–78; PULSE 96–112; RESP 16–22; TEMP 35.8–36.4; O2SAT 93–97
[2024-11-03] MEDS: vancomycin HCL Oral Solution 125 MG/5 ML SOLN.RECON PO ×4 (03:29→21:06)
[2024-11-03 07:23] LABS: Blood Urea Nitrogen 9 mg/dL (9-16); Calcium 8.5 mg/dL (8.4-10.2); Creatinine Clr Calc Pharmacy 163.3; Estimated Glomerular Filt Rate > 60
[2024-11-03 07:33] LABS: Anion Gap 12 (12-20); Carbon Dioxide 30 mmol/L (22-29); Chloride 99 mmol/L (96-108); Potassium 3.7 mmol/L (3.3-5.1); Sodium 137 mmol/L (135-145)
--- NOTE | 2024-11-03 07:35 | P.PNGS_ITS ---
Subjective Subjective Date of Service: 11/03/24 Interval history: Feels better overall, still with some loose BMS but improving. Now having urinary retention, started on flomax over the weekend. Physical Exam 2 Vital Signs: Vital Signs: Last Vital Signs Temp 97.1 F 11/03/24 03:28 Pulse 112 H 11/03/24 03:28 Resp 18 11/03/24 03:28 BP 116/62 11/03/24 03:28 Pulse Ox 94 11/03/24 03:28 O2 Del Method Room Air 11/03/24 03:28 O2 Flow Rate 2 10/27/24 12:53 BMI result Body Mass Index 33.7 Const: General: comfortable, no acute distress and alert O rientation/consciousness: patient oriented x3 Resp: Effort & Inspection: normal respiratory effort, able to speak in complete sentences and not tachypneic Cardio: Rate: tachycardic GI: Other: remains softly distended, overall unchanged mild incisional tenderness Percussion: Yes tympanic to percussion Skin: General skin exam: no rashes or lesions noted Neuro: General: patient oriented x3 and moves all extremities Objective Data Active Medications Acetaminophen (Acetaminophen 325 Mg Tablet) 650 mg PO Q6H PRN PRN Reason: Pain, Mild 1-3,fever,headache Calcium Carbonate (Calcium Carbonate 750 Mg Tab.Chew) 750 mg PO Q4H PRN PRN Reason: Heartburn Last Admin: 10/31/24 11:44 Dose: 750 mg Documented By: KEYSHA Dextrose (Dextrose 50 % 25 Gm/50 Ml Syringe) 25 gm IVPUSH Q15M PRN; Protocol PRN Reason: per Hypoglycemia Standing Ord. Dextrose (Dextrose 50 % 25 Gm/50 Ml Syringe) 25 gm IVPUSH Q15M PRN; Protocol PRN Reason: per Hypoglycemia Standing Ord. Diazepam (Diazepam 10 Mg/2 Ml Cartridge) 5 mg IVPUSH Q4H PRN PRN Reason: Opiate Withdrawal Last Admin: 10/26/24 05:58 Dose: 5 mg Documented By: CARLEE Finasteride (Finasteride 5 Mg Tablet) 5 mg PO DAILY [facility] Last Admin: 11/02/24 11:50 Dose: 5 mg Documented By: KEYSHA Glipizide (Glipizide 10 Mg Tablet) 10 mg PO DAILY [facility] Last Admin: 11/02/24 08:23 Dose: 10 mg Documented By: KEYSHA Glucose (Glucose Gel 15 Gm Gel..Gram.) 15 gm PO Q15M PRN; Protocol PRN Reason: per Hypoglycemia Standing Ord. Insulin Glargine (Insulin Glargine,Hum.Rec.Anlog 100 Unit/Ml 10 Ml Vial) 15 unit SUBCUT DAILY [facility] Last Admin: 11/02/24 08:25 Dose: 15 unit Documented By: KEYSHA Insulin Human Lispro (Insulin Lispro 100 Unit/Ml 3 Ml Vial) 0 unit SUBCUT QIDACHS [facility]; Protocol Last Admin: 11/02/24 21:32 Dose: 2 unit Documented By: LORENA Ketorolac Tromethamine (Ketorolac Tromethamine 15 Mg/Ml Vial) 15 mg IVPUSH Q6H PRN PRN Reason: Pain, Mild 1-3,fever,headache Last Admin: 10/30/24 16:29 Dose: 15 mg Documented By: UNIQUE Lisinopril (Lisinopril 10 Mg Tablet) 10 mg PO DAILY [facility]; Protocol Melatonin (Melatonin 3 Mg Tablet) 6 mg PO BEDTIME PRN PRN Reason: Insomnia Morphine Sulfate (Morphine Sulfate 2 Mg/Ml Cartridge) 6 mg IVPUSH Q3H PRN; Protocol PRN Reason: Pain, Severe (Pain Scale 7-10) Last Admin: 10/31/24 21:47 Dose: 6 mg Documented By: DOLLY Oxycodone HCl (Oxycodone Hcl Immed Release 5 Mg Tablet) 5 mg PO Q8H PRN PRN Reason: Pain, Moderate(Pain Scale 4-6) Last Admin: 11/02/24 21:32 Dose: 5 mg Documented By: LORENA Potassium Chloride (Potassium Chloride Er 20 Meq Tab.Er.Prt) 20 meq PO BID [facility] Last Admin: 11/02/24 21:32 Dose: 20 meq Documented By: LORENA Sodium Chloride (0.9 % Sodium Chloride Flush 3 Ml Syringe) 3 ml IVFLUSH QSHIFT [facility] Last Admin: 11/02/24 21:33 Dose: 3 ml Documented By: LORENA Tamsulosin HCl (Tamsulosin Hcl 0.4 Mg Capsule) 0.4 mg PO BEDTIME [facility] Last Admin: 11/02/24 21:32 Dose: 0.4 mg Documented By: LORENA Vancomycin HCl (Vancomycin Hcl Oral Solution 125 Mg/5 Ml Soln.Recon) 125 mg PO Q6H [facility] Stop: 11/14/24 20:59 Last Admin: 11/03/24 03:29 Dose: 125 mg Documented By: LORENA Labs 11/02/24 06:42 11/03/24 06:23 Labs: Laboratory Results - last 24 hr 11/02/24 11/02/24 11/02/24 11:37 16:07 20:25 Hold Purple Top Anion Gap Estim Creat Clear Calc Estimated GFR POC Glucose 205 H 198 H 193 H Random Glucose Calcium 11/03/24 06:23 Hold Purple Top SEE NOTE Anion Gap 12 Estim Creat Clear Calc 163.3 Estimated GFR > 60 POC Glucose Random Glucose 222 H Calcium 8.5 Procedures Date of Service Date of Service: 11/03/24 Progress Note: A&P Assessment and plan (1) S/P exploratory laparotomy: Status: Acute (2) Small bowel obstruction: Status: Acute Plan POD 9 following exploratory laparotomy, enterolysis for small bowel obstruction. On vanco for C diff. Loose stools improving, now having difficulty with urinary retention. Tachycardic. AM labs reviewed, lytes normal. Will check mag. Cont regular diet as tolerated, vanco. On flomax per hospitalist. Will defer treatment to them but consider urology consult if no improvement. Time Spent With Patient Time: Total time managing care of this patient today ____ minutes. Quality Stroke Does the patient have a stroke diagnosis?: No VTE Prior VTE?: No VTE Risk Level:: Surgical - moderate VTE Device Contraindication: N/A - Device Ordered VTE Drug Contraindication: Treatment Not Indicated
[2024-11-03 07:44] LABS: Glucose, Whole Blood 220 mg/dL (60-115)
[2024-11-03] MEDS: Insulin Glargine,Hum.rec.anlog 100 UNIT/ML 10 ML VIAL 15 UNIT SUBCUT (08:05)
[2024-11-03 08:06] LABS: Magnesium 1.9 mg/dL (1.6-2.6)
[2024-11-03] MEDS: Potassium Chloride ER 20 MEQ TAB.ER.PRT PO ×2 (08:07→21:05)
[2024-11-03] MEDS: 0.9 % Sodium Chloride Flush 3 ML SYRINGE IVFLUSH ×3 (08:07→21:06)
--- NOTE | 2024-11-03 10:38 | MHC.CM.PN ---
Patient has not yet been medically cleared for dc (loose BMs, Urinary Retention, Tachycardic); home is the goal and CM will continue to follow.
[2024-11-03 11:34] LABS: Glucose, Whole Blood 296 mg/dL (60-115)
[2024-11-03 16:10] LABS: Glucose, Whole Blood 177 mg/dL (60-115)
--- NOTE | 2024-11-03 18:37 | P.PNIM_ITS ---
Subjective Subjective Date of Service: 11/03/24 Interval History: Feeling better Diarrhea improved, though still going 5 to 6 times a day No nausea or vomiting BP mildly improved on lisinopril 10 mg Reports continued difficulty urinating Review of Systems Review of Systems: Yes all other systems are reviewed and are negative Physical Exam 2 Exam: Exam: General: AOx3, no acute distress. Resp: CTA bilaterally CVS: S1, S2, RRR GI: Abd slightly firm, not tympanic. Surgical incision intact, clean, dry. Non tender Skin: Warm, dry Neuro: Cranial nerves II-XII grossly intact bilaterally. Motor grossly intact bilaterally Extremities: No edema Psych: Appropriate affect Vital Signs: Vital Signs: Last Vital Signs Temp 97.2 F 11/03/24 15:32 Pulse 97 11/03/24 15:32 Resp 20 11/03/24 15:32 BP 146/71 H 11/03/24 15:32 Pulse Ox 97 11/03/24 15:32 O2 Del Method Room Air 11/03/24 15:32 O2 Flow Rate 2 10/27/24 12:53 BMI result Body Mass Index 33.7 Objective Data Active Medications Acetaminophen (Acetaminophen 325 Mg Tablet) 650 mg PO Q6H PRN PRN Reason: Pain, Mild 1-3,fever,headache Calcium Carbonate (Calcium Carbonate 750 Mg Tab.Chew) 750 mg PO Q4H PRN PRN Reason: Heartburn Last Admin: 10/31/24 11:44 Dose: 750 mg Documented By: KEYSHA Dextrose (Dextrose 50 % 25 Gm/50 Ml Syringe) 25 gm IVPUSH Q15M PRN; Protocol PRN Reason: per Hypoglycemia Standing Ord. Dextrose (Dextrose 50 % 25 Gm/50 Ml Syringe) 25 gm IVPUSH Q15M PRN; Protocol PRN Reason: per Hypoglycemia Standing Ord. Diazepam (Diazepam 10 Mg/2 Ml Cartridge) 5 mg IVPUSH Q4H PRN PRN Reason: Opiate Withdrawal Last Admin: 10/26/24 05:58 Dose: 5 mg Documented By: CARLEE Finasteride (Finasteride 5 Mg Tablet) 5 mg PO DAILY [facility] Last Admin: 11/03/24 08:07 Dose: 5 mg Documented By: ARABELLA Glipizide (Glipizide 10 Mg Tablet) 10 mg PO DAILY [facility] Last Admin: 11/03/24 08:07 Dose: 10 mg Documented By: ARABELLA Glucose (Glucose Gel 15 Gm Gel..Gram.) 15 gm PO Q15M PRN; Protocol PRN Reason: per Hypoglycemia Standing Ord. Insulin Glargine (Insulin Glargine,Hum.Rec.Anlog 100 Unit/Ml 10 Ml Vial) 15 unit SUBCUT DAILY [facility] Last Admin: 11/03/24 08:05 Dose: 15 unit Documented By: ARABELLA Insulin Human Lispro (Insulin Lispro 100 Unit/Ml 3 Ml Vial) 0 unit SUBCUT QIDACHS [facility]; Protocol Last Admin: 11/03/24 16:13 Dose: 2 unit Documented By: ARABELLA Ketorolac Tromethamine (Ketorolac Tromethamine 15 Mg/Ml Vial) 15 mg IVPUSH Q6H PRN PRN Reason: Pain, Mild 1-3,fever,headache Last Admin: 10/30/24 16:29 Dose: 15 mg Documented By: SOLISPE Lisinopril (Lisinopril 10 Mg Tablet) 10 mg PO DAILY [facility]; Protocol Last Admin: 11/03/24 08:07 Dose: 10 mg Documented By: ARABELLA Melatonin (Melatonin 3 Mg Tablet) 6 mg PO BEDTIME PRN PRN Reason: Insomnia Morphine Sulfate (Morphine Sulfate 2 Mg/Ml Cartridge) 6 mg IVPUSH Q3H PRN; Protocol PRN Reason: Pain, Severe (Pain Scale 7-10) Last Admin: 10/31/24 21:47 Dose: 6 mg Documented By: DOLLY Oxycodone HCl (Oxycodone Hcl Immed Release 5 Mg Tablet) 5 mg PO Q8H PRN PRN Reason: Pain, Moderate(Pain Scale 4-6) Last Admin: 11/02/24 21:32 Dose: 5 mg Documented By: LORENA Potassium Chloride (Potassium Chloride Er 20 Meq Tab.Er.Prt) 20 meq PO BID [facility] Last Admin: 11/03/24 08:07 Dose: 20 meq Documented By: ARABELLA Sodium Chloride (0.9 % Sodium Chloride Flush 3 Ml Syringe) 3 ml IVFLUSH QSHIFT [facility] Last Admin: 11/03/24 16:14 Dose: 3 ml Documented By: ARABELLA Tamsulosin HCl (Tamsulosin Hcl 0.4 Mg Capsule) 0.4 mg PO BEDTIME [facility] Last Admin: 11/02/24 21:32 Dose: 0.4 mg Documented By: LORENA Vancomycin HCl (Vancomycin Hcl Oral Solution 125 Mg/5 Ml Soln.Recon) 125 mg PO Q6H [facility] Stop: 11/14/24 20:59 Last Admin: 11/03/24 16:14 Dose: 125 mg Documented By: ARABELLA Labs 11/02/24 06:42 11/03/24 06:23 Labs: Laboratory Results - last 24 hr 11/02/24 11/03/24 11/03/24 20:25 06:23 07:31 Hold Purple Top SEE NOTE Anion Gap 12 Estim Creat Clear Calc 163.3 Estimated GFR > 60 POC Glucose 193 H 220 H Random Glucose 222 H Calcium 8.5 Magnesium 1.9 11/03/24 11/03/24 11:14 16:06 Hold Purple Top Anion Gap Estim Creat Clear Calc Estimated GFR POC Glucose 296 H 177 H Random Glucose Calcium Magnesium Assessment and Plan (1) Small bowel obstruction: Status: Acute Plan This is a 58 year old male with reported history of DM, BPH, chronic back pain who presents with abdominal pain found to have SBO SBO was unable to have NGT due to previous nasal surgery, failed conservative measures and had worsening abd pain and distention s/p d ex lap through large midline incision with lysis of adhesions on 10/25 tolerating full diet surgical management as per general surgery Acute CDiff colitis C diff gene positive, C diff toxin negative but pt with intractable diarrhea Diarrhea slightly improved today Will treat with vancomycin 125mg po q6h x14 days Difficulty urinating Will start on finasteride 5 mg daily Continue tamsulosin Postvoid bladder scan q.shift Consider urology consult if pt is found to be retaining Hypokalemia Has been recurrent during admission, secondary to diarrhea and now CDiff Supplement as necessary Follow bmp chest pain has complained of intermittent cp during admission seems pleuritic in nature. also reproducible cxr unremarkable, serial trops all flat and WNL echo showed mildly dilated left ventricle with [id number] LV systolic dysfunction with EF of 40-45% Should follow up outpatient with Cardiology NIDDM, poorly controlled hba1c 9.5 Reports on metformin 1000mg bid and glipizide 10 mg daily at home, not on med rec follow POCs, cover with SSI Hold metformin, continue glipizide 10 mg daily Will start on Lantus 15 units daily Needs to follow with PCP for diabetes management HTN On lisinopril 5mg daily at home; will increase to 10mg Consider adding amlodipine 5 mg daily if BP continues to be high Follow BP Opioid use disorder uses oxycodone purchased without prescription 5mg 4x daily for 10-15 years Toxicology screen positive for oxycodone Addiction med following Thank you for allowing us to participate in the care of this patient. Will sign off for now. Please re-consult if any acute issue or need arises. Quality Stroke Does the patient have a stroke diagnosis?: No VTE Prior VTE?: No VTE Risk Level:: Surgical - moderate VTE Device Contraindication: N/A - Device Ordered VTE Drug Contraindication: Treatment Not Indicated
[2024-11-03 20:10] LABS: Glucose, Whole Blood 197 mg/dL (60-115)
[2024-11-03] MEDS: oxyCODONE HCl Immed Release 5 MG TABLET PO (21:10)
[2024-11-04] VITALS (11 sets, daily range): BP systolic 134–161; BP diastolic 63–85; PULSE 92–106; RESP 17–20; TEMP 36.3–36.8; O2SAT 94–96
[2024-11-04] MEDS: vancomycin HCL Oral Solution 125 MG/5 ML SOLN.RECON PO ×4 (03:29→21:32)
[2024-11-04 07:21] LABS: MANUAL DIFF FLAG NO
[2024-11-04 07:30] LABS: Glucose, Whole Blood 196 mg/dL (60-115)
[2024-11-04 07:35] LABS: Hematocrit 41.7 % (42.0-52.0); Hemoglobin 13.3 g/dl (14.0-18.0); Imm Gran Abs Auto 0.66 X10*3/uL (0.00-0.03); Imm Gran Pct Auto 4.6 % (0.0-0.4); Lymphocytes Absolute Auto 2.9 X10*3/uL (1.2-4.9); Mean Corpuscular HGB Conc 31.9 g/dl (31.0-36.0); Mean Corpuscular Hemoglobin 26.7 pg (27.0-33.0); Mean Corpuscular Volume 83.7 fL (80.0-98.0); NRBC Abs Auto 0.000 X10*3/uL (0.0-0.012); NRBC Pct Auto 0.0 /100WBC (0.0-0.2); Platelet Count 316 X10*3/uL (160-400); Red Blood Count 4.98 X10*6/uL (4.60-5.80); White Blood Count 14.5 X10*3/uL (4.8-10.8)
[2024-11-04 07:47] LABS: Anion Gap 11 (12-20); Blood Urea Nitrogen 10 mg/dL (9-16); Calcium 8.3 mg/dL (8.4-10.2); Carbon Dioxide 29 mmol/L (22-29); Chloride 101 mmol/L (96-108); Creatinine Clr Calc Pharmacy 155.2; Estimated Glomerular Filt Rate > 60; Potassium 3.4 mmol/L (3.3-5.1); Sodium 138 mmol/L (135-145)
[2024-11-04] MEDS: Insulin Glargine,Hum.rec.anlog 100 UNIT/ML 10 ML VIAL 15 UNIT SUBCUT (08:20)
[2024-11-04] MEDS: Potassium Chloride ER 20 MEQ TAB.ER.PRT PO ×2 (08:21→21:33)
[2024-11-04] MEDS: 0.9 % Sodium Chloride Flush 3 ML SYRINGE IVFLUSH ×2 (08:24→15:51)
--- NOTE | 2024-11-04 09:08 | PM.PNGS ---
Subjective Subjective Date of Service: 11/04/24 Interval history: Feels ok, still weak overall. Reports less abdominal pain. Tolerating solid diet without nausea or vomiting. Stools becoming less frequent and more formed. Able to urinate better but c/o burning now. Also c/o itching and discharge from right groin. C/o right foot pain. Physical Exam Vital Signs: Vital Signs: Last Vital Signs Temp 97.4 F 11/04/24 07:18 Pulse 92 11/04/24 07:18 Resp 20 11/04/24 07:18 BP 134/77 11/04/24 07:18 Pulse Ox 96 11/04/24 07:18 O2 Del Method Room Air 11/04/24 07:18 O2 Flow Rate 2 10/27/24 12:53 BMI result Body Mass Index 33.7 Const: General: comfortable, no acute distress and alert Orientation/consciousness: patient oriented x3 Resp: Effort & Inspection: normal respiratory effort GI: Other: distended but overall improved, soft mild incisional tenderness, incision clean right groin with erythema in the fold with satelitte lesions, some thick white discharge present Palpation (GI): no guarding Skin: Other: warm and dry right groin as noted above in GI Neuro: General: patient oriented x3 and moves all extremities Extrem: Other: b/l LE, no edema or erythema Objective Data Active Medications Acetaminophen (Acetaminophen 325 Mg Tablet) 650 mg PO Q6H PRN PRN Reason: Pain, Mild 1-3,fever,headache Calcium Carbonate (Calcium Carbonate 750 Mg Tab.Chew) 750 mg PO Q4H PRN PRN Reason: Heartburn Last Admin: 10/31/24 11:44 Dose: 750 mg Documented By: KEYSHA Dextrose (Dextrose 50 % 25 Gm/50 Ml Syringe) 25 gm IVPUSH Q15M PRN; Protocol PRN Reason: per Hypoglycemia Standing Ord. Dextrose (Dextrose 50 % 25 Gm/50 Ml Syringe) 25 gm IVPUSH Q15M PRN; Protocol PRN Reason: per Hypoglycemia Standing Ord. Diazepam (Diazepam 10 Mg/2 Ml Cartridge) 5 mg IVPUSH Q4H PRN PRN Reason: Opiate Withdrawal Last Admin: 10/26/24 05:58 Dose: 5 mg Documented By: CARLEE Finasteride (Finasteride 5 Mg Tablet) 5 mg PO DAILY [facility] Last Admin: 11/04/24 08:22 Dose: 5 mg Documented By: DARRIAN Glipizide (Glipizide 10 Mg Tablet) 10 mg PO DAILY [facility] Last Admin: 11/04/24 08:21 Dose: 10 mg Documented By: DARRIAN Glucose (Glucose Gel 15 Gm Gel..Gram.) 15 gm PO Q15M PRN; Protocol PRN Reason: per Hypoglycemia Standing Ord. Insulin Glargine (Insulin Glargine,Hum.Rec.Anlog 100 Unit/Ml 10 Ml Vial) 15 unit SUBCUT DAILY [facility] Last Admin: 11/04/24 08:20 Dose: 15 unit Documented By: DARRIAN Insulin Human Lispro (Insulin Lispro 100 Unit/Ml 3 Ml Vial) 0 unit SUBCUT QIDACHS [facility]; Protocol Last Admin: 11/04/24 08:20 Dose: 2 unit Documented By: DARRIAN Ketorolac Tromethamine (Ketorolac Tromethamine 15 Mg/Ml Vial) 15 mg IVPUSH Q6H PRN PRN Reason: Pain, Mild 1-3,fever,headache Last Admin: 10/30/24 16:29 Dose: 15 mg Documented By: SOLISWENDY Lisinopril (Lisinopril 10 Mg Tablet) 10 mg PO DAILY [facility]; Protocol Last Admin: 11/04/24 08:21 Dose: 10 mg Documented By: DARRIAN Melatonin (Melatonin 3 Mg Tablet) 6 mg PO BEDTIME PRN PRN Reason: Insomnia Last Admin: 11/03/24 23:14 Dose: 6 mg Documented By: LORENA Morphine Sulfate (Morphine Sulfate 2 Mg/Ml Cartridge) 6 mg IVPUSH Q3H PRN; Protocol PRN Reason: Pain, Severe (Pain Scale 7-10) Last Admin: 10/31/24 21:47 Dose: 6 mg Documented By: DOLLY Nystatin (Nystatin Cream 15 Gm Tube) 1 appl TOPICAL BID [facility]; Protocol Oxycodone HCl (Oxycodone Hcl Immed Release 5 Mg Tablet) 5 mg PO Q8H PRN PRN Reason: Pain, Moderate(Pain Scale 4-6) Last Admin: 11/03/24 21:10 Dose: 5 mg Documented By: LORENA Potassium Chloride (Potassium Chloride Er 20 Meq Tab.Er.Prt) 20 meq PO BID [facility] Last Admin: 11/04/24 08:21 Dose: 20 meq Documented By: DARRIAN Sodium Chloride (0.9 % Sodium Chloride Flush 3 Ml Syringe) 3 ml IVFLUSH QSHIFT [facility] Last Admin: 11/04/24 08:24 Dose: 3 ml Documented By: DARRIAN Tamsulosin HCl (Tamsulosin Hcl 0.4 Mg Capsule) 0.4 mg PO BEDTIME [facility] Last Admin: 11/03/24 21:06 Dose: 0.4 mg Documented By: LORENA Vancomycin HCl (Vancomycin Hcl Oral Solution 125 Mg/5 Ml Soln.Recon) 125 mg PO Q6H [facility] Stop: 11/14/24 20:59 Last Admin: 11/04/24 08:21 Dose: 125 mg Documented By: DARRIAN Labs 11/04/24 06:41 11/04/24 06:41 Labs: Laboratory Results - last 24 hr 11/03/24 11/03/24 11/03/24 11:14 16:06 20:03 MCV MCH MCHC RDW Plt Count MPV Immature Gran % (Auto) Neut % (Auto) Lymph % (Auto) [place] % (Auto) Eos % (Auto) Baso % (Auto) Lymph # (Auto) [place] # (Auto) Eos # (Auto) Baso # (Auto) Abs Immat Gran (auto) Absolute Neuts (auto) Absolute Nucleated RBC Nucleated RBC % (auto) Anion Gap Estim Creat Clear Calc Estimated GFR POC Glucose 296 H 177 H 197 H Random Glucose Calcium 11/04/24 11/04/24 06:41 07:15 MCV 83.7 MCH 26.7 L MCHC 31.9 RDW 13.2 Plt Count 316 MPV 9.2 L Immature Gran % (Auto) 4.6 H Neut % (Auto) 66.4 Lymph % (Auto) 20.1 [place] % (Auto) 5.3 Eos % (Auto) 2.6 Baso % (Auto) 1.0 Lymph # (Auto) 2.9 [place] # (Auto) 0.8 Eos # (Auto) 0.4 Baso # (Auto) 0.2 Abs Immat Gran (auto) 0.66 H Absolute Neuts (auto) 9.6 H Absolute Nucleated RBC 0.000 Nucleated RBC % (auto) 0.0 Anion Gap 11 L Estim Creat Clear Calc 155.2 Estimated GFR > 60 POC Glucose 196 H Random Glucose 191 H Calcium 8.3 L Procedures Date of Service Date of Service: 11/04/24 Progress Note: A&P Assessment and plan (1) Small bowel obstruction: Status: Acute (2) S/P exploratory laparotomy: Status: Acute Plan POD 10 following exploratory laparotomy, enterolysis for small bowel obstruction. On vanco for C diff. Loose stools improving. Vital improved this morning. Abd remains soft and benign, right groin with rash consistent with yeast infection, nystatin cream ordered. Bladder scan with no residual this morning, now c/o burning with urination, will obtain UA. Patient overall improving. Anticipate discharge in the next few days. Encouraged OOB/ambulation and increasing activity. PT was apparently consulted over the weekend and discharged the patient. Time Spent With Patient Time: Total time managing care of this patient today ____ minutes. Quality Stroke Does the patient have a stroke diagnosis?: No VTE Prior VTE?: No VTE Risk Level:: Surgical - moderate VTE Device Contraindication: N/A - Device Ordered VTE Drug Contraindication: Treatment Not Indicated
[2024-11-04 11:36] LABS: Glucose, Whole Blood 210 mg/dL (60-115)
[2024-11-04 12:22] LABS: Appearance Urine Clear; Glucose Urine UA 500 mg/dL (Negative); PH 5.5 (5.0-9.0); Specific Gravity - Urine 1.015 (1.005-1.025)
[2024-11-04] MEDS: oxyCODONE HCl Immed Release 5 MG TABLET PO (15:50)
[2024-11-04 16:14] LABS: Glucose, Whole Blood 188 mg/dL (60-115)
[2024-11-04 21:12] LABS: Glucose, Whole Blood 238 mg/dL (60-115)
[2024-11-05] VITALS: BP 113/57; PULSE 100; PULSE 99; RESP 16; TEMP 37.4; O2SAT 95
[2024-11-05] MEDS: 0.9 % Sodium Chloride Flush 3 ML SYRINGE IVFLUSH ×2 (00:27→08:42)
[2024-11-05] MEDS: vancomycin HCL Oral Solution 125 MG/5 ML SOLN.RECON PO ×2 (02:49→08:41)
[2024-11-05 04:00] VITALS: BP 146/55; PULSE 87; TEMP 36.4; O2SAT 99
[2024-11-05 07:35] VITALS: BP 138/83; PULSE 100; RESP 20; TEMP 36.2; O2SAT 96
[2024-11-05 07:57] LABS: Glucose, Whole Blood 241 mg/dL (60-115)
[2024-11-05 08:41] VITALS: BP 138/83
[2024-11-05] MEDS: Insulin Glargine,Hum.rec.anlog 100 UNIT/ML 10 ML VIAL 15 UNIT SUBCUT (08:41)
[2024-11-05] MEDS: Potassium Chloride ER 20 MEQ TAB.ER.PRT PO (08:42)
--- NOTE | 2024-11-05 09:26 | P.CDIM_ITS ---
PROVIDER RESPONSE TEXT: To clarify, the appropriate diagnosis supported by the clinical indicators: Complete SBO QUERY TEXT: PHYSICIAN'S DOCUMENTATION REQUEST Date of Query: 10/28/2024 01:32 PM EDT Patient Name: Josue Donaldson Admit Date: 10/24/2024 Dear Brian Baker MD, A review of the medical record indicates additional documentation may be needed. Please review below and update the documentation accordingly. Clinical Indicators: small bowel obstruction due to adhesions 10/25/24 OR procedure: exploratory laparotomy, lysis of adhesions Based on the above, could you clarify the appropriate diagnosis, if significant, that supports the above abnormalities and additional evaluation, monitoring, and/or treatment rendered: Partial SBO Complete SBO Other (explain) Clinically unable to determine (explain) Thank you, Odette Norton RN Use of terms such as suspected, likely, concern for, or probable (associated with a specific diagnosis that is being evaluated, monitored, or treated as if it exists) are acceptable and can be coded in the inpatient setting, when documented at the time of discharge. Please use your independent medical judgment in providing your response. THIS QUERY IS PART OF THE PERMANENT MEDICAL RECORD
--- NOTE | 2024-11-05 10:56 | P.PNGS_ITS ---
Subjective Subjective Date of Service: 11/05/24 <Callie Boyd PA-C - Last Filed: 11/05/24 11:01> 11/05/24 <Brian Baker MD - Last Filed: 11/05/24 15:34> Interval history: Feels better overall. Less abd pain but reports he still is using oxycodone. Tolerating solid diet. Denies loose stools. Continues to void on own but does still have burning. <Callie Boyd PA-C - Last Filed: 11/05/24 11:01> Physical Exam 2 Vital Signs: Vital Signs: Last Vital Signs Temp 97.2 F 11/05/24 07:35 Pulse 100 11/05/24 07:35 Resp 20 11/05/24 07:35 BP 138/83 11/05/24 08:41 Pulse Ox 96 11/05/24 07:35 O2 Del Method Room Air 11/05/24 07:35 O2 Flow Rate 2 10/27/24 12:53 BMI result Body Mass Index 33.7 <Callie Boyd PA-C - Last Filed: 11/05/24 11:01> Const: General: comfortable, no acute distress and alert <MDITRI Miller Last Filed: 11/05/24 11:01> Orientation/consciousness: patient oriented x3 <Callie Boyd PA-C - Last Filed: 11/05/24 11:01> Resp: Effort & Inspection: normal respiratory effort, able to speak in complete sentences and not tachypneic <Callie Boyd PA-C - Last Filed: 11/05/24 11:01> GI: Other: softly distended incision clean, hilary intact mild diffuse tenderness surrounding incision <Callie Boyd PA-C - Last Filed: 11/05/24 11:01> Palpation (GI): no guarding <DMITRI Miller Last Filed: 11/05/24 11:01> Skin: Other: erythema of right groin <DMITRI Miller Last Filed: 11/05/24 11:01> Neuro: General: patient oriented x3 and moves all extremities <Callie Boyd PA-C - Last Filed: 11/05/24 11:01> Objective Data Active Medications Acetaminophen (Acetaminophen 325 Mg Tablet) 650 mg PO Q6H PRN PRN Reason: Pain, Mild 1-3,fever,headache Calcium Carbonate (Calcium Carbonate 750 Mg Tab.Chew) 750 mg PO Q4H PRN PRN Reason: Heartburn Last Admin: 10/31/24 11:44 Dose: 750 mg Documented By: KEYSHA Dextrose (Dextrose 50 % 25 Gm/50 Ml Syringe) 25 gm IVPUSH Q15M PRN; Protocol PRN Reason: per Hypoglycemia Standing Ord. Dextrose (Dextrose 50 % 25 Gm/50 Ml Syringe) 25 gm IVPUSH Q15M PRN; Protocol PRN Reason: per Hypoglycemia Standing Ord. Diazepam (Diazepam 10 Mg/2 Ml Cartridge) 5 mg IVPUSH Q4H PRN PRN Reason: Opiate Withdrawal Last Admin: 10/26/24 05:58 Dose: 5 mg Documented By: CARLEE Finasteride (Finasteride 5 Mg Tablet) 5 mg PO DAILY [facility] Last Admin: 11/05/24 08:41 Dose: 5 mg Documented By: CYNTHIA Glipizide (Glipizide 10 Mg Tablet) 10 mg PO DAILY [facility] Last Admin: 11/05/24 08:42 Dose: 10 mg Documented By: CYNTHIA Glucose (Glucose Gel 15 Gm Gel..Gram.) 15 gm PO Q15M PRN; Protocol PRN Reason: per Hypoglycemia Standing Ord. Insulin Glargine (Insulin Glargine,Hum.Rec.Anlog 100 Unit/Ml 10 Ml Vial) 15 unit SUBCUT DAILY [facility] Last Admin: 11/05/24 08:41 Dose: 15 unit Documented By: CYNTHIA Insulin Human Lispro (Insulin Lispro 100 Unit/Ml 3 Ml Vial) 0 unit SUBCUT QIDACHS [facility]; Protocol Last Admin: 11/05/24 08:41 Dose: 4 unit Documented By: CYNTHIA Ketorolac Tromethamine (Ketorolac Tromethamine 15 Mg/Ml Vial) 15 mg IVPUSH Q6H PRN PRN Reason: Pain, Mild 1-3,fever,headache Last Admin: 10/30/24 16:29 Dose: 15 mg Documented By: UNIQUE Lisinopril (Lisinopril 10 Mg Tablet) 10 mg PO DAILY [facility]; Protocol Last Admin: 11/05/24 08:41 Dose: 10 mg Documented By: CYNTHIA Melatonin (Melatonin 3 Mg Tablet) 6 mg PO BEDTIME PRN PRN Reason: Insomnia Last Admin: 11/05/24 00:26 Dose: 6 mg Documented By: BRYSON Morphine Sulfate (Morphine Sulfate 2 Mg/Ml Cartridge) 6 mg IVPUSH Q3H PRN; Protocol PRN Reason: Pain, Severe (Pain Scale 7-10) Last Admin: 11/04/24 21:32 Dose: 6 mg Documented By: SHERI Nystatin (Nystatin Cream 15 Gm Tube) 1 appl TOPICAL BID [facility]; Protocol Last Admin: 11/05/24 08:42 Dose: 1 appl Documented By: CYNTHIA Oxycodone HCl (Oxycodone Hcl Immed Release 5 Mg Tablet) 5 mg PO Q8H PRN PRN Reason: Pain, Moderate(Pain Scale 4-6) Last Admin: 11/04/24 15:50 Dose: 5 mg Documented By: DARRIAN Comments: pt request med for pain Potassium Chloride (Potassium Chloride Er 20 Meq Tab.Er.Prt) 20 meq PO BID [facility] Last Admin: 11/05/24 08:42 Dose: 20 meq Documented By: CYNTHIA Sodium Chloride (0.9 % Sodium Chloride Flush 3 Ml Syringe) 3 ml IVFLUSH QSHIFT REPLACED [facility] Last Admin: 11/05/24 08:42 Dose: 3 ml Documented By: CYNTHIA Tamsulosin HCl (Tamsulosin Hcl 0.4 Mg Capsule) 0.4 mg PO BEDTIME [facility] Last Admin: 11/04/24 21:33 Dose: 0.4 mg Documented By: SHERI Vancomycin HCl (Vancomycin Hcl Oral Solution 125 Mg/5 Ml Soln.Recon) 125 mg PO Q6H [facility] Stop: 11/14/24 20:59 Last Admin: 11/05/24 08:41 Dose: 125 mg Documented By: CYNTHIA <Callie Boyd PA-C - Last Filed: 11/05/24 11:01> Labs CBC & Chem 7: 11/04/24 06:41 11/04/24 06:41 <Callie Boyd PA-C - Last Filed: 11/05/24 11:01> Labs: Laboratory Results - last 24 hr 11/04/24 11/04/24 11/04/24 11:20 12:19 16:06 POC Glucose 210 H 188 H Urine Color Yellow Urine Appearance Clear Urine pH 5.5 Ur Specific [place] 1.015 Urine Protein Negative Urine Glucose (UA) 500 H Urine Ketones Negative Urine Blood Negative Urine Nitrite Negative Ur Leukocyte Esterase Negative Urine RBC 0-2 Urine WBC 0-5 Ur Squamous Epith Cells 0-2 Urine Bacteria None Seen Hyaline Casts 0-2 11/04/24 11/05/24 21:02 07:31 POC Glucose 238 H 241 H Urine Color Urine Appearance Urine pH Ur Specific [place] Urine Protein Urine Glucose (UA) Urine Ketones Urine Blood Urine Nitrite Ur Leukocyte Esterase Urine RBC Urine WBC Ur Squamous Epith Cells Urine Bacteria Hyaline Casts <Callie Boyd PA-C - Last Filed: 11/05/24 11:01> Procedures Date of Service Date of Service: 11/05/24 <Callie Boyd PA-C - Last Filed: 11/05/24 11:01> 11/05/24 <Brian Baker MD - Last Filed: 11/05/24 15:34> Progress Note: A&P Assessment and plan (1) Small bowel obstruction: Status: Acute <Callie Boyd PA-C - Last Filed: 11/05/24 11:01> (2) S/P exploratory laparotomy: Status: Acute <Callie Boyd PA-C - Last Filed: 11/05/24 11:01> Assessment and Plan: POD 11 following exploratory laparotomy, enterolysis for small bowel obstruction. Overall doing well. UA negative yesterday. On vanco for C diff, loose stools resolved. Hemodynamically stable. Abd remains soft and benign, incision clean. Stable for dc to home today. will dc home on oral vanco for total of 14 days. He is to follow up in the office next week for wound check. He is to follow up with PCP regarding HTN and diabetes management. HE is in agreement with plan. Will remove hilary prior to dc. <Callie Boyd PA-C - Last Filed: 11/05/24 11:01> POD 11 following exploratory laparotomy, enterolysis for small bowel obstruction. Overall doing well. UA negative yesterday. On vanco for C diff, loose stools resolved. Hemodynamically stable. Abd remains soft and benign, incision clean. Stable for dc to home today. will dc home on oral vanco for total of 14 days. He is to follow up in the office next week for wound check. He is to follow up with PCP regarding HTN and diabetes management. HE is in agreement with plan. Will remove hilary prior to dc. Patient seen and examined and I agree with the above assessment and plan. Discharge to home, follow up in one week. <Brian Baker MD - Last Filed: 11/05/24 15:34> Time Spent With Patient Time: Total time managing care of this patient today ____ minutes. <Callie Boyd PA-C - Last Filed: 11/05/24 11:01> Quality Stroke Does the patient have a stroke diagnosis?: No <Callie Boyd PA-C - Last Filed: 11/05/24 11:01> VTE Prior VTE?: No <Callie Boyd PA-C - Last Filed: 11/05/24 11:01> VTE Risk Level:: Surgical - moderate <Callie Boyd PA-C - Last Filed: 11/05/24 11:01> VTE Device Contraindication: N/A - Device Ordered <Callie Boyd PA-C - Last Filed: 11/05/24 11:01> VTE Drug Contraindication: Treatment Not Indicated <Callie Boyd PA-C - Last Filed: 11/05/24 11:01>
--- NOTE | 2024-11-05 11:10 | MHC.CM.PN ---
Patient has been medically cleared for dc to home today, self care.
[2024-11-05 11:32] VITALS: BP 130/79; PULSE 102; RESP 18; TEMP 36.3; O2SAT 94
[2024-11-05 12:18] LABS: Glucose, Whole Blood 243 mg/dL (60-115)
--- NOTE | 2024-11-05 13:01 | PM.DS ---
DS: Providers Provider Date of Service: 11/05/24 Date of admission: 10/24/24 17:43 Date of discharge: 11/05/24 Primary care physician: Unknown Physician Attending physician on admission: Brian Baker Consults: 10/24/24 17:42 Consult to Hospitalist Routine Comment: Consulting Provider: [facility] Reason For Exam: SBO, elevated glucose, preoperative evaluation 10/25/24 07:31 Addiction Medicine Provider Routine Consulting Provider: Addiction Covering Reason for consultation: opiate abuse Has provider been notified: No Attending physician on discharge: Brian Baker DS: Diagnosis Discharge Diagnosis (1) Small bowel obstruction: Status: Acute (2) S/P exploratory laparotomy: Status: Acute DS: Summary Hospital Course Hospital Course: HPI AT ADMISSION: Josue Donaldson is a 58 year old male presenting with complaints of 5 days of diffuse abdominal pain with nausea and constipation. He has a prior history of an exploratory laparotomy performed in 1984 in [place] which ended up being a perforated appendicitis. He subsequently underwent an incisional hernia repair with mesh performed at [facility] approximately 10 years ago. He has had several bowel obstructions since this time all of which have resolved without the need for surgery. He reports having previous nasal surgery which makes nasogastric tube insertion in possible. He presented to the emergency department and was found to have abdominal distention with tenderness throughout the abdomen. He underwent IV hydration and CT abdomen and pelvis was performed which shows dilated loops of small bowel with a transition in the distal small bowel possibly related to the previous hernia surgery. No abscess or free air is identified. HOSPITAL COURSE: He was admitted to the surgical service for further management of the small-bowel obstruction with IV hydration and bowel rest. Unfortunately and nasogastric tube can not be inserted given his previous nasal surgery. Hospitalist consult was obtained for medical management. He eventually disclosed that he had been oxycodone he bought off the street at home for chronic pain issues and was likely in withdrawal. Addiciton med was consulted. He also unfortunately had no improvement in his abdominal symptoms the following day and therefore it was recommended to proceed with exploratory laparotomy. He was added onto the OR schedule for that day. On 10/25/24, exploratory laparotomy, lysis of adhesions was performed by Dr. Baker without complication. He was found to have transition point noted at the lower portion of the mesh in the midline incision with a clear transition point between markedly distended small bowel and decompressed ileum. The patient tolerated the procedure well. He had a slow recovery course which was expected due to the degree of small bowel dilatation. Eventually he had evidence of GI function and his abdominal distention improved. His diet was slowly advanced. He developed loose stools with no improvement after a few days and his WBC count was hovering around 15. Repeat CT scan showed minimal inflammatory changes involving the proximal duodenum and ascending colon with thickening. C diff was obtained which was positive for PCR but negative for toxin however he was treated for C diff given his symptoms and CT scan findings and started on Vancomycin 125mg po q6h x14 days. On the day of discharge, his diarrhea had improved and was more solid and formed. He was tolerating solid diet without nausea or vomiting. His pain was well controlled. He was ambulating without difficulty. He was hemodynamically stable. His abdomen was benign and softly distended with appropriate post op tenderness, clean incision. His hilary were removed. He was discharged to home on 11/05/24 in stable condition on oral vancomycin to complete 14 days therapy. He is to follow up with general surgery in 1 week. he is to follow up with his PCP regarding his HTN, diabetes mellitus and BPH management. Difficulty urinating Started on finasteride 5 mg daily Continue tamsulosin No evidence of retaining chest pain complained of intermittent cp during admission seems pleuritic in nature. also reproducible cxr unremarkable, serial trops all flat and WNL echo showed mildly dilated left ventricle with [id number] LV systolic dysfunction with EF of 40-45% Follow up outpatient with Cardiology NIDDM, poorly controlled hba1c 9.5 Reports on metformin 1000mg bid and glipizide 10 mg daily at home, not on med rec follow POCs, cover with SSI Hold metformin, continue glipizide 10 mg daily Started on Lantus 15 units daily while inpatient He was to resume home meds upon discharge with follow up with PCP for diabetes management HTN On lisinopril 5mg daily at home; increase to 10mg during stay follow up with PCP for further managment Opioid use disorder uses oxycodone purchased without prescription 5mg 4x daily for 10-15 years Toxicology screen positive for oxycodone Addiction med following given narcan at discharge Status at Discharge Functional status at discharge: independent ambulation Overall status at discharge: patient is progressing back to baseline Time Attestation Discharge Coordination Time (in mins): 50 Quality: Safe Use of Opioids Does Pt have an Active Cancer Diagnosis on the Problem List?: No Quality: Stroke Does the patient have a stroke diagnosis?: No Physical Exam Vital Signs: Vital Signs: Last Vital Signs Temp 97.4 F 11/05/24 11:32 Pulse 102 H 11/05/24 11:32 Resp 18 11/05/24 11:32 BP 130/79 11/05/24 11:32 Pulse Ox 94 11/05/24 11:32 O2 Del Method Room Air 11/05/24 11:32 O2 Flow Rate 2 10/27/24 12:53 BMI result Body Mass Index 33.7 Const: General: comfortable, no acute distress and alert Orientation/consciousness: patient oriented x3 Resp: Effort & Inspection: normal respiratory effort, able to speak in complete sentences and not tachypneic GI: Inspection: Yes distended (soft, improved overall) and Yes incision (clean, hilary removed ) Palpation (GI): Soft to palpation, Tenderness to palpation present (GI) (mild incisional) and no guarding Skin: General skin exam: no rashes or lesions noted Neuro: General: patient oriented x3 and moves all extremities DS: Data Data Completed and Pending Labs on day of discharge: Laboratory Results - last 24 hr 11/04/24 11/04/24 11/05/24 16:06 21:02 07:31 POC Glucose 188 H 238 H 241 H 11/05/24 11:31 POC Glucose 243 H Discharge Plan Discharge Anticipated Discharge Date/Time: 11/05/24 11:05 Patient Disposition: Home, Self-Care Discharge Diagnosis: SBO s/p laparotomy and lysis of adhesions Referrals: Brian Baker MD [Physician, General Surgery] - 1 Week Alejandro Devine MD [Physician, Cardiology] - 2 Weeks Referral Note: echo showed mildly dilated left ventricle with bioc-ju-sszxuhjr LV systolic dysfunction with EF of 40-45% Jimmy Palencia [Primary Care Provider, Medical] - 1 Week Discharge Medications: New naloxone [Narcan] 4 mg/actuation spray,non-aerosol 1 spray intranasal Q2M PRN (Reason: opioid overdose) Qty: 2 0RF Rx Instructions: spray 1 dose into ONE nostril; alternate nostrils w each dose until help arrives lisinopril 10 mg Tablet 10 mg PO DAILY Qty: 60 0RF Protocol: Hold for SBP< HOLD for SBP < : 90 finasteride 5 mg Tablet 5 mg PO DAILY Qty: 30 0RF vancomycin [Firvanq] 25 mg/mL Recon Soln 125 mg PO Q6H 9 Days Qty: 180 0RF clotrimazole 1 % cream 1 appl topical BID 14 Days Qty: 30 0RF oxycodone 5 mg tablet 5 mg PO Q4H PRN (Reason: pain (scale score 7-10)) Qty: 14 0RF Rx Instructions: Partial Fill upon patient request. Continued tamsulosin 0.4 mg Capsule 0.4 mg PO BEDTIME Discharge Orders: Discharge Order (Routine); Ordered 11/05/24 Ordered By: Callie Boyd Diet: Diabetic diet Activity on Discharge: No heavy lifting Stand Alone Forms: Patient Portal Discharge page Print Language: Dutch Activity Restrictions/Additional Instructions: If the incision area is tender, you may apply an ice pack for short intervals (No more than 20 minutes on, followed by at least 20 minutes off). Do not apply heat. Do not use creams, lotions, or topical antibiotics. These can cause infection or allergic reaction. Ok to shower. You have hilary closing your incision and these will be removed approximately 10-14 days after surgery. NO HEAVY LIFTING (>10lbs) or strenuous activity. Follow up in office with Dr. Baker in 1 week. ([phone]) Call Your Doctor If: -Your temperature exceeds 101.5? F -You experience excessive pain or swelling -You have an unexpected reaction to medication -You have excessive bleeding -You experience continued vomiting/nausea -Your incision begins to separate -Your incision shows signs of infection such as increased redness, swelling, excessive pain, drainage (light blood or clear fluid is normal) or heat Stop taking: lisinopril 5mg PO daily Start taking: Lisinopril 10mg PO daily Finasteride 5mg PO daily Clotrimazole cream 1 application twice a day to right groin until rash resolved. Vancomycin every 6 hours for 9 more days. Resume all other home medications as prescribed. Care Plan Goals: Return to baseline health and resume normal activities following recovery period. Health Concerns: SBO secondary to adhesions diabetes mellitus hypertension chronic opioid use Plan of Treatment: s/p exploratory laparotomy, lysis of adhesions Follow up in the office with Dr. Baker in 1 week for wound check and staple removal. Resume your home medications. Follow up with your PCP regarding your hypertension and diabetes mellitus and further management. Please follow up with cardiology. Assessment: Improved Discharge Date/Time: 11/05/24 13:01
--- NOTE | 2024-11-07 08:46 | PC.NURSE ---
late entry for 10-28-2024, Tylenol given instead of a narcotic as physicians are trying to wean him off narcotics. This was used for abdominal pain.
== END 2024-11-05 13:01 | disposition home or self-care (01) | DRG 224 ==
LOC: HO.ED 17:23 → HO.EDOVER 17:50 → HO.S3 18:04 → HO.IMC 10-26 11:20
PROVIDERS: Hospitalist; Internal Medicine; Nurse Practitioner Family; Physician Assistant; Physician Assistant Medical; Physician Assistant Surgical; Student in an Organized Health Care Education/Training Program; Admitting Provider Surgery; Emergency Provider Emergency Medicine; Visit Provider Surgery
PROC: (CPT 49000; principal; 2024-10-25 13:00)
DX: K56.52 Intestinal adhesions [bands] with complete obstruction (principal); A04.72 Enterocolitis due to Clostridium difficile, not specified as recurrent; E13.65 Other specified diabetes mellitus with hyperglycemia; E86.0 Dehydration; F11.23 Opioid dependence with withdrawal; M54.9 Dorsalgia, unspecified; E87.6 Hypokalemia; G89.29 Other chronic pain; I10 Essential (primary) hypertension; N40.1 Benign prostatic hyperplasia with lower urinary tract symptoms; R33.8 Other retention of urine; R94.31 Abnormal electrocardiogram [ECG] [EKG]; Z79.84 Long term (current) use of oral hypoglycemic drugs; Z79.899 Other long term (current) drug therapy
CPT/HCPCS: 36415; 71045; 74018; 74177; 80048; 80053; 80307; 81001; 81003; 82010; 82803; 82947; 83036; 83605; 83690; 83735; 83880; 84100; 84132; 84484; 85007; 85025; 85027; 85379; 85610; 87040; 87086; 87324; 87493; 93005; 93306; 97162; 99285; J0131; J0330; J1885; J2003; J2270; J2405; J2543; J2704; J3010; J3360; J3475; J3480; J7120; Q9957; Q9967

== ENCOUNTER → 2024-10-24 16:12 | Outpatient (BNV) | payer MEDICAID, SELFPAY | PROVIDERS: Admitting Provider Surgery; Emergency Provider Emergency Medicine; Visit Provider Internal Medicine Cardiovascular Disease | DX: R00.0 Tachycardia, unspecified (principal) | CPT/HCPCS: 93010 ==

== ENCOUNTER → 2024-10-24 16:44 | Outpatient (BNV) | payer MEDICAID, SELFPAY | PROVIDERS: Admitting Provider Surgery; Emergency Provider Emergency Medicine; Visit Provider Radiology Diagnostic Radiology | DX: K56.51 Intestinal adhesions [bands], with partial obstruction (principal) | CPT/HCPCS: 74177 ==

== ENCOUNTER 2024-10-24 17:43 | Outpatient (BNV) | payer MEDICAID, SELFPAY | END 2024-10-25 08:00 | PROVIDERS: Admitting Provider Surgery; Emergency Provider Emergency Medicine; Visit Provider Internal Medicine Cardiovascular Disease | DX: R00.0 Tachycardia, unspecified (principal) | CPT/HCPCS: 93010 ==

== ENCOUNTER 2024-10-24 17:43 | Outpatient (BNV) | payer MEDICAID, SELFPAY | END 2024-10-26 08:39 | PROVIDERS: Admitting Provider Surgery; Emergency Provider Emergency Medicine; Visit Provider Internal Medicine Cardiovascular Disease | DX: I49.3 Ventricular premature depolarization (principal); R00.0 Tachycardia, unspecified; R94.31 Abnormal electrocardiogram [ECG] [EKG] | CPT/HCPCS: 93010 ==

== ENCOUNTER 2024-10-24 17:43 | Outpatient (BNV) | payer MEDICAID, SELFPAY | END 2024-10-27 06:03 | PROVIDERS: Admitting Provider Surgery; Emergency Provider Emergency Medicine; Visit Provider Internal Medicine Cardiovascular Disease | DX: I51.89 Other ill-defined heart diseases (principal); R00.0 Tachycardia, unspecified | CPT/HCPCS: 93306 ==

== ENCOUNTER 2024-10-24 17:43 | Outpatient (BNV) | payer MEDICAID, SELFPAY | END 2024-10-31 14:02 | PROVIDERS: Admitting Provider Surgery; Emergency Provider Emergency Medicine; Visit Provider Radiology Body Imaging | DX: K52.9 Noninfective gastroenteritis and colitis, unspecified (principal) | CPT/HCPCS: 74177 ==

== ENCOUNTER 2024-10-24 17:43 | Outpatient (BNV) | payer MEDICAID, SELFPAY | END 2024-10-26 00:16 | PROVIDERS: Admitting Provider Surgery; Emergency Provider Emergency Medicine; Visit Provider Radiology Diagnostic Radiology | DX: R06.02 Shortness of breath (principal); R50.9 Fever, unspecified; K56.609 Unspecified intestinal obstruction, unspecified as to partial versus complete obstruction | CPT/HCPCS: 71045; 74018 ==

== ENCOUNTER → 2024-10-24 17:43 | Outpatient (BNV) | payer MEDICAID, SELFPAY | PROVIDERS: Admitting Provider Surgery; Emergency Provider Emergency Medicine; Visit Provider Surgery | DX: F11.288 Opioid dependence with other opioid-induced disorder (principal); K56.609 Unspecified intestinal obstruction, unspecified as to partial versus complete obstruction; Z98.890 Other specified postprocedural states | CPT/HCPCS: 44005; 99024; 99222 ==

== ENCOUNTER → 2024-10-24 17:43 | Outpatient (BNV) | payer MEDICAID, SELFPAY | PROVIDERS: Admitting Provider Surgery; Emergency Provider Emergency Medicine; Visit Provider Nurse Practitioner Psychiatric/Mental Health | DX: F11.288 Opioid dependence with other opioid-induced disorder (principal) | CPT/HCPCS: 99222 ==

== ENCOUNTER → 2024-10-24 17:43 | Outpatient (BNV) | payer MEDICAID, SELFPAY | PROVIDERS: Admitting Provider Surgery; Emergency Provider Emergency Medicine; Visit Provider Nurse Practitioner Family | DX: K56.609 Unspecified intestinal obstruction, unspecified as to partial versus complete obstruction (principal); Z98.890 Other specified postprocedural states | CPT/HCPCS: 99223; 99233; 99499 ==

== ENCOUNTER 2024-11-12 10:51 | Outpatient (AMB) | payer MEDICAID, SELFPAY ==
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
[2024-11-12 11:01] VITALS: BP 120/64; PULSE 110
== END 2024-11-12 11:21 | disposition home or self-care (01) ==
DX: Z98.890 Other specified postprocedural states (principal)
CPT/HCPCS: 99024

== ENCOUNTER → 2024-11-12 10:51 | Outpatient (BNVA) | payer MEDICAID, SELFPAY | DX: K56.609 Unspecified intestinal obstruction, unspecified as to partial versus complete obstruction (principal); K35.32 Acute appendicitis with perforation, localized peritonitis, and gangrene, without abscess; Z79.891 Long term (current) use of opiate analgesic; Z98.890 Other specified postprocedural states | CPT/HCPCS: 99212 ==

== ENCOUNTER 2024-12-10 10:53 | Outpatient (AMB) | payer MEDICAID, SELFPAY ==
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
[2024-12-10 11:00] VITALS: BP 156/72; PULSE 107
== END 2024-12-10 11:13 | disposition home or self-care (01) ==
DX: Z98.890 Other specified postprocedural states (principal)
CPT/HCPCS: 99024

== ENCOUNTER → 2024-12-10 10:53 | Outpatient (BNVA) | payer MEDICAID, SELFPAY | DX: K59.00 Constipation, unspecified (principal); Z98.890 Other specified postprocedural states | CPT/HCPCS: 99212 ==